=== PATIENT | female | born 1940 | race Caucasian/White ===

== ENCOUNTER 2018-02-22 09:28 | Inpatient (IN) | payer MEDICARE, BC ==
[2018-02-22] MEDS ORDERED: SODIUM CHLORIDE 0.9% 1,000 ML IV STA (09:31)
--- NOTE | 2018-02-22 09:44 | ED ---
GI Bleed HPI - General Chief complaint: GI Bleed Stated complaint: Diff Breathing Time Seen by Provider: 02/22/18 09:28 Source: patient, EMS, RN notes reviewed, old records reviewed Mode of arrival: EMS Limitations: no limitations - History of Present Illness Initial comments: This is a 77-year-old female who presents by EMS from her doctor's office with 2 complaints this morning. Versus shortness of breath or past several days with a wet minimally productive cough no reports of fevers chills or sweats additionally the patient also has some blood per rectum or past several days with something protruding from her rectum. No reports lightheadedness dizziness blurry vision nausea vomiting. Patient does have chronic atrial fibrillation. No other modifying factors at this time - Related Data Home Medications Medication Instructions Recorded Confirmed Digoxin [Digitek] 125 mcg PO DAILY 12/07/16 02/22/18 Ergocalciferol [Vitamin D2 50,000 unit PO Q30D 12/07/16 02/22/18 (DRISDOL)] Potassium Chloride ER [K-Dur 20] 20 meq PO DAILY 12/07/16 02/22/18 Vit C/E/Zn/Coppr/Lutein/Zeaxan 1 cap PO DAILY 12/07/16 02/22/18 [Preservision Areds 2 Softgel] Ascorbic Acid [Vitamin C] 500 mg PO DAILY 02/22/18 02/22/18 Calcium Carbonate [Calcium] 600 mg PO BID 02/22/18 02/22/18 Fluticasone/Salmeterol [Advair 1 puff INHALATION RT-BID 02/22/18 02/22/18 250-50 Diskus] Metoprolol Tartrate [Lopressor] 25 mg PO Q12H 02/22/18 02/22/18 Warfarin Sodium [Coumadin] 4 mg PO SUMOTUWETH@1800 02/22/18 02/22/18 Warfarin [Coumadin] 5 mg PO FRSA 02/22/18 02/22/18 Previous Rx's Medication Instructions Recorded Atorvastatin [Lipitor] 20 mg PO DAILY tab 12/15/16 Furosemide [Lasix] 20 mg PO DAILY tab 12/15/16 Pantoprazole [Protonix] 40 mg PO AC-BID tablet.dr 12/15/16 Verapamil Sr [Isoptin Sr] 120 mg PO DAILY tablet.er 12/15/16 Allergies Allergy/AdvReac Type Severity Reaction Status Date / Time Sulfa (Sulfonamide Allergy Rash/Hives Verified 02/22/18 10:21 Antibiotics) Review of Systems ROS Statement: Those systems with pertinent positive or pertinent negative responses have been documented in the HPI. ROS Other: All systems not noted in ROS Statement are negative. Past Medical History Past Medical History: Atrial Fibrillation, Heart Failure, Osteoarthritis (OA) Additional Past Medical History / Comment(s): chronic back pain, emphysema History of Any Multi-Drug Resistant Organisms: None Reported Past Surgical History: Back Surgery Additional Past Surgical History / Comment(s): hysterectomy Past Anesthesia/Blood Transfusion Reactions: No Reported Reaction Past Psychological History: No Psychological Hx Reported Smoking Status: Former smoker Past Alcohol Use History: None Reported Past Drug Use History: None Reported - Past Family History Mother Family Medical History: Cancer Additional Family Medical History / Comment(s): esophageal CA Father Family Medical History: Myocardial Infarction ([place]) General Exam - General Exam Comments Initial Comments: This is a well-developed well-nourished awake alert oriented 3 female she is demonstrating a wet cough Limitations: no limitations General appearance: alert, anxious Head exam: Present: atraumatic, normocephalic, normal inspection Eye exam: Present: normal appearance, PERRL, EOMI. Absent: scleral icterus, conjunctival injection, periorbital swelling ENT exam: Present: normal exam, mucous membranes moist Neck exam: Present: normal inspection. Absent: tenderness, meningismus, lymphadenopathy Respiratory exam: Present: rhonchi, decreased breath sounds. Absent: respiratory distress, wheezes, rales, stridor Cardiovascular Exam: Present: tachycardia, irregular rhythm. Absent: systolic murmur, diastolic murmur, rubs, gallop, clicks GI/Abdominal exam: Present: soft, normal bowel sounds. Absent: distended, tenderness, guarding, rebound, rigid Rectal exam: Present: other (Rectal exam revealed no masses or hemorrhoids noted that are not inflamed at this time. There was evidence of pink blood on residual toilet paper and on underwear. No martinez blood on my exam. Hemoccult test is pending) Extremities exam: Present: normal inspection, full ROM, normal capillary refill. Absent: tenderness, pedal edema, joint swelling, calf tenderness Back exam: Present: normal inspection Neurological exam: Present: alert, oriented X3, CN II-XII intact Psychiatric exam: Present: normal affect, normal mood Skin exam: Present: warm, dry, intact, normal color. Absent: rash Course Vital Signs 02/22/18 02/22/18 09:30 12:01 Temperature 98.3 F 98.2 F Pulse Rate 119 H 118 H Respiratory 20 22 Rate Blood Pressure 110/68 114/73 O2 Sat by Pulse 88 L 95 Oximetry - Reevaluation(s) Reevaluation #1: 02/22/18 09:46 EKG shows rapid atrial fibrillation rate 119 QRS QRS 84 QT since QTC 266/374, right axis deviation, nonspecific ST-T wave configuration artifact is present. Reevaluation #2: 02/22/18 14:03 Evaluation patient reveals minimal improvement thus far to her breathing her heart rate maintains an elevated rate Cardizem is initiated. Medical Decision Making - Medical Decision Making I did discuss the findings with the patient family members as well as with Dr. Chavez who did come to see the patient. Patient will be admitted for inpatient treatment of rapid atrial fibrillation and congestive heart failure. There is likely component of COPD also. Additionally the rectal exam was negative for masses or bleeding. UA is pending at this time - Lab Data Result diagrams: 02/22/18 09:44 02/22/18 09:44 Lab Results 02/22/18 02/22/18 02/22/18 Range/Units 09:44 09:44 09:44 WBC 10.0 (3.8-10.6) k/uL RBC 4.60 (3.80-5.40) m/uL Hgb 15.0 (11.4-16.0) gm/dL Hct 48.6 H (34.0-46.0) % MCV 105.6 H (80.0-100.0) fL MCH 32.6 (25.0-35.0) pg MCHC 30.9 L (31.0-37.0) g/dL RDW 13.8 (11.5-15.5) % Plt Count 245 (150-450) k/uL Neutrophils % 86 % Lymphocytes % 8 % Monocytes % 5 % Eosinophils % 0 % Basophils % 0 % Neutrophils # 8.6 H (1.3-7.7) k/uL Lymphocytes # 0.8 L (1.0-4.8) k/uL Monocytes # 0.5 (0-1.0) k/uL Eosinophils # 0.0 (0-0.7) k/uL Basophils # 0.0 (0-0.2) k/uL Macrocytosis Moderate PT (9.0-12.0) sec INR (<1.2) APTT (22.0-30.0) sec Sodium 135 L (137-145) mmol/L Potassium 4.6 (3.5-5.1) mmol/L Chloride 97 L (98-107) mmol/L Carbon Dioxide 32 H (22-30) mmol/L Anion Gap 6 mmol/L BUN 16 (7-17) mg/dL Creatinine 0.52 (0.52-1.04) mg/dL Est GFR (CKD-EPI)AfAm >90 (>60 ml/min/1.73 sqM) Est GFR (CKD-EPI)NonAf >90 (>60 ml/min/1.73 sqM) Glucose 98 (74-99) mg/dL Calcium 7.9 L (8.4-10.2) mg/dL Magnesium 1.0 L (1.6-2.3) mg/dL Total Bilirubin 1.2 (0.2-1.3) mg/dL AST 38 H (14-36) U/L ALT 29 (9-52) U/L Alkaline Phosphatase 50 (38-126) U/L Total Creatine Kinase 69 (30-135) U/L CK-MB (CK-2) 2.4 (0.0-2.4) ng/mL CK-MB (CK-2) Rel Index 3.5 Troponin I 0.033 (0.000-0.034) ng/mL NT-Pro-B Natriuret Pep pg/mL Total Protein 5.5 L (6.3-8.2) g/dL Albumin 2.9 L (3.5-5.0) g/dL Amylase 36 (30-110) U/L Lipase 48 (23-300) U/L Stool Occult Blood (Negative) 02/22/18 02/22/18 02/22/18 Range/Units 09:44 09:44 10:05 WBC (3.8-10.6) k/uL RBC (3.80-5.40) m/uL Hgb (11.4-16.0) gm/dL Hct (34.0-46.0) % MCV (80.0-100.0) fL MCH (25.0-35.0) pg MCHC (31.0-37.0) g/dL RDW (11.5-15.5) % Plt Count (150-450) k/uL Neutrophils % % Lymphocytes % % Monocytes % % Eosinophils % % Basophils % % Neutrophils # (1.3-7.7) k/uL Lymphocytes # (1.0-4.8) k/uL Monocytes # (0-1.0) k/uL Eosinophils # (0-0.7) k/uL Basophils # (0-0.2) k/uL Macrocytosis PT 84.7 H (9.0-12.0) sec INR 8.6 H* (<1.2) APTT 38.8 H (22.0-30.0) sec Sodium (137-145) mmol/L Potassium (3.5-5.1) mmol/L Chloride (98-107) mmol/L Carbon Dioxide (22-30) mmol/L Anion Gap mmol/L BUN (7-17) mg/dL Creatinine (0.52-1.04) mg/dL Est GFR (CKD-EPI)AfAm (>60 ml/min/1.73 sqM) Est GFR (CKD-EPI)NonAf (>60 ml/min/1.73 sqM) Glucose (74-99) mg/dL Calcium (8.4-10.2) mg/dL Magnesium (1.6-2.3) mg/dL Total Bilirubin (0.2-1.3) mg/dL AST (14-36) U/L ALT (9-52) U/L Alkaline Phosphatase (38-126) U/L Total Creatine Kinase (30-135) U/L CK-MB (CK-2) (0.0-2.4) ng/mL CK-MB (CK-2) Rel Index Troponin I (0.000-0.034) ng/mL NT-Pro-B Natriuret Pep 8290 pg/mL Total Protein (6.3-8.2) g/dL Albumin (3.5-5.0) g/dL Amylase (30-110) U/L Lipase (23-300) U/L Stool Occult Blood Negative (Negative) - EKG Data -: EKG Interpreted by Me (Atrial fibrillation with rapid response rate 119 QRS 84 QT since QTC 266/37) - Radiology Data Radiology results: report reviewed (I did review the imaging and reports are is evidence of his congestive heart failure. Please see the complete report), image reviewed Critical Care Time Critical Care Time: Yes Critical Care Time: 39 minutes of critical care time this includes initial presentation with history physical labs x-rays multiple reevaluation patient responsive therapy discussion with the beta physician discussion with multiple family members review of old charting was available admission orders and documentation of the above. Disposition Clinical Impression: Congestive heart failure (CHF), Rapid atrial fibrillation Disposition: ADMITTED IP TO THIS [facility] Condition: Serious Referrals: Janel Marie MD [Primary Care Provider] - 1-2 days
--- NOTE | 2018-02-22 10:05 | XR ---
EXAMINATION TYPE: XR chest 2V DATE OF EXAM: 02/22/2018 COMPARISON: Chest x-ray December 13, 2016 HISTORY: Shortness of breath TECHNIQUE: Frontal and lateral views of the chest are obtained. FINDINGS: There is chronic parenchymal change with persistent small left pleural effusion and associ ated left basilar atelectasis and/or infiltrate. There is new mild/moderate central vascular congesti on and mild interstitial edema with Adore B lines in the periphery. The cardiac silhouette size is u pper limits of normal. The osseous structures are demineralized.. Underlying scoliosis is present. There may be underlying bilateral lung nodularity. IMPRESSION: Chronic parenchymal changes with small left pleural effusion and associated left basilar atelectasis and/or infiltrate. In addition there is mild to moderate central vascular congestion and mild interstitial edema. Correlate for fluid overload state or CHF exacerbation. Cannot exclude demetra ateral lung nodules, consider CT follow-up.
--- NOTE | 2018-02-22 10:07 | XR ---
EXAMINATION TYPE: XR abdomen 1V DATE OF EXAM: 02/22/2018 9:59 AM CLINICAL HISTORY: Rectal bleeding. TECHNIQUE: Single supine KUB image of the abdomen is obtained. COMPARISON: None. FINDINGS: Scattered gas is seen in non-distended stomach and small bowel loops. Gas and fecal materia l is seen in non-distended colon. Vascular calcification central lower abdomen and bilateral groin re gion is seen. Underlying scoliosis is present. There is advanced disc space narrowing with endplate s clerosis upper to mid lumbar levels. Punctate densities over pelvis favor phleboliths. IMPRESSION: Overall nonobstructive bowel gas pattern.
[2018-02-22 10:11] LABS: Basophils % (A) 0 %; Eosinophils % (A) 0 %; HCT 48.6 % (34.0-46.0); Lymphocytes # (A) 0.8 k/uL (1.0-4.8); Lymphocytes % (A) 8 %; MCH 32.6 pg (25.0-35.0); MCHC 30.9 g/dL (31.0-37.0); MCV 105.6 fL (80.0-100.0); Macrocytosis Moderate; Mean Platelet Volume 6.9; Monocytes # (A) 0.5 k/uL (0-1.0); Monocytes % (A) 5 %; Neutrophils # (A) 8.6 k/uL (1.3-7.7); Neutrophils % (A) 86 %; Platelet Count 245 k/uL (150-450); RDW 13.8 % (11.5-15.5)
[2018-02-22 10:24] LABS: ALT 29 U/L (9-52); AST 38 U/L (14-36); Albumin 2.9 g/dL (3.5-5.0); Alkaline Phosphatase 50 U/L (38-126); Amylase 36 U/L (30-110); Anion Gap 6 mmol/L; Blood Urea Nitrogen 16 mg/dL (7-17); Calcium 7.9 mg/dL (8.4-10.2); Carbon Dioxide 32 mmol/L (22-30); Chloride 97 mmol/L (98-107); Glucose 98 mg/dL (74-99); Lipase 48 U/L (23-300); Sodium 135 mmol/L (137-145); Total Bilirubin 1.2 mg/dL (0.2-1.3); Total Protein 5.5 g/dL (6.3-8.2)
[2018-02-22 10:43] LABS: Potassium 4.6 mmol/L (3.5-5.1)
[2018-02-22 10:51] LABS: Creatine Kinase MB 2.4 ng/mL (0.0-2.4); Troponin I 0.033 ng/mL (0.000-0.034)
[2018-02-22 11:01] LABS: Partial Thromboplastin Time 38.8 sec (22.0-30.0); Prothrombin Time 84.7 sec (9.0-12.0)
[2018-02-22 11:03] LABS: INR 8.6 (<1.2)
[2018-02-22] MEDS ORDERED: DILTIAZEM DRIP BOLUS FROM BAG 1 MG SOLN IV ONE (13:00)
[2018-02-22] MEDS ORDERED: METOPROLOL TARTRATE 25 MG TAB PO STA (13:05)
[2018-02-22] MEDS ORDERED: DILTIAZEM 50 MG in SODIUM CHLORIDE 0.9% 40 ML IV SCH (13:30)
[2018-02-22] MEDS: DIGOXIN 125 MCG TAB PO SCH (14:06)
--- NOTE | 2018-02-22 14:11 | ED ---
Medical Decision Making - Lab Data Result diagrams: 02/22/18 09:44 02/22/18 09:44 Lab Results 02/22/18 02/22/18 02/22/18 Range/Units 09:44 09:44 09:44 WBC 10.0 (3.8-10.6) k/uL RBC 4.60 (3.80-5.40) m/uL Hgb 15.0 (11.4-16.0) gm/dL Hct 48.6 H (34.0-46.0) % MCV 105.6 H (80.0-100.0) fL MCH 32.6 (25.0-35.0) pg MCHC 30.9 L (31.0-37.0) g/dL RDW 13.8 (11.5-15.5) % Plt Count 245 (150-450) k/uL Neutrophils % 86 % Lymphocytes % 8 % Monocytes % 5 % Eosinophils % 0 % Basophils % 0 % Neutrophils # 8.6 H (1.3-7.7) k/uL Lymphocytes # 0.8 L (1.0-4.8) k/uL Monocytes # 0.5 (0-1.0) k/uL Eosinophils # 0.0 (0-0.7) k/uL Basophils # 0.0 (0-0.2) k/uL Macrocytosis Moderate PT (9.0-12.0) sec INR (<1.2) APTT (22.0-30.0) sec Sodium 135 L (137-145) mmol/L Potassium 4.6 (3.5-5.1) mmol/L Chloride 97 L (98-107) mmol/L Carbon Dioxide 32 H (22-30) mmol/L Anion Gap 6 mmol/L BUN 16 (7-17) mg/dL Creatinine 0.52 (0.52-1.04) mg/dL Est GFR (CKD-EPI)AfAm >90 (>60 ml/min/1.73 sqM) Est GFR (CKD-EPI)NonAf >90 (>60 ml/min/1.73 sqM) Glucose 98 (74-99) mg/dL Calcium 7.9 L (8.4-10.2) mg/dL Magnesium 1.0 L (1.6-2.3) mg/dL Total Bilirubin 1.2 (0.2-1.3) mg/dL AST 38 H (14-36) U/L ALT 29 (9-52) U/L Alkaline Phosphatase 50 (38-126) U/L Total Creatine Kinase 69 (30-135) U/L CK-MB (CK-2) 2.4 (0.0-2.4) ng/mL CK-MB (CK-2) Rel Index 3.5 Troponin I 0.033 (0.000-0.034) ng/mL NT-Pro-B Natriuret Pep pg/mL Total Protein 5.5 L (6.3-8.2) g/dL Albumin 2.9 L (3.5-5.0) g/dL Amylase 36 (30-110) U/L Lipase 48 (23-300) U/L Stool Occult Blood (Negative) Digoxin ng/mL 02/22/18 02/22/18 02/22/18 Range/Units 09:44 09:44 09:44 WBC (3.8-10.6) k/uL RBC (3.80-5.40) m/uL Hgb (11.4-16.0) gm/dL Hct (34.0-46.0) % MCV (80.0-100.0) fL MCH (25.0-35.0) pg MCHC (31.0-37.0) g/dL RDW (11.5-15.5) % Plt Count (150-450) k/uL Neutrophils % % Lymphocytes % % Monocytes % % Eosinophils % % Basophils % % Neutrophils # (1.3-7.7) k/uL Lymphocytes # (1.0-4.8) k/uL Monocytes # (0-1.0) k/uL Eosinophils # (0-0.7) k/uL Basophils # (0-0.2) k/uL Macrocytosis PT 84.7 H (9.0-12.0) sec INR 8.6 H* (<1.2) APTT 38.8 H (22.0-30.0) sec Sodium (137-145) mmol/L Potassium (3.5-5.1) mmol/L Chloride (98-107) mmol/L Carbon Dioxide (22-30) mmol/L Anion Gap mmol/L BUN (7-17) mg/dL Creatinine (0.52-1.04) mg/dL Est GFR (CKD-EPI)AfAm (>60 ml/min/1.73 sqM) Est GFR (CKD-EPI)NonAf (>60 ml/min/1.73 sqM) Glucose (74-99) mg/dL Calcium (8.4-10.2) mg/dL Magnesium (1.6-2.3) mg/dL Total Bilirubin (0.2-1.3) mg/dL AST (14-36) U/L ALT (9-52) U/L Alkaline Phosphatase (38-126) U/L Total Creatine Kinase (30-135) U/L CK-MB (CK-2) (0.0-2.4) ng/mL CK-MB (CK-2) Rel Index Troponin I (0.000-0.034) ng/mL NT-Pro-B Natriuret Pep 8290 pg/mL Total Protein (6.3-8.2) g/dL Albumin (3.5-5.0) g/dL Amylase (30-110) U/L Lipase (23-300) U/L Stool Occult Blood (Negative) Digoxin 0.4 ng/mL 02/22/18 Range/Units 10:05 WBC (3.8-10.6) k/uL RBC (3.80-5.40) m/uL Hgb (11.4-16.0) gm/dL Hct (34.0-46.0) % MCV (80.0-100.0) fL MCH (25.0-35.0) pg MCHC (31.0-37.0) g/dL RDW (11.5-15.5) % Plt Count (150-450) k/uL Neutrophils % % Lymphocytes % % Monocytes % % Eosinophils % % Basophils % % Neutrophils # (1.3-7.7) k/uL Lymphocytes # (1.0-4.8) k/uL Monocytes # (0-1.0) k/uL Eosinophils # (0-0.7) k/uL Basophils # (0-0.2) k/uL Macrocytosis PT (9.0-12.0) sec INR (<1.2) APTT (22.0-30.0) sec Sodium (137-145) mmol/L Potassium (3.5-5.1) mmol/L Chloride (98-107) mmol/L Carbon Dioxide (22-30) mmol/L Anion Gap mmol/L BUN (7-17) mg/dL Creatinine (0.52-1.04) mg/dL Est GFR (CKD-EPI)AfAm (>60 ml/min/1.73 sqM) Est GFR (CKD-EPI)NonAf (>60 ml/min/1.73 sqM) Glucose (74-99) mg/dL Calcium (8.4-10.2) mg/dL Magnesium (1.6-2.3) mg/dL Total Bilirubin (0.2-1.3) mg/dL AST (14-36) U/L ALT (9-52) U/L Alkaline Phosphatase (38-126) U/L Total Creatine Kinase (30-135) U/L CK-MB (CK-2) (0.0-2.4) ng/mL CK-MB (CK-2) Rel Index Troponin I (0.000-0.034) ng/mL NT-Pro-B Natriuret Pep pg/mL Total Protein (6.3-8.2) g/dL Albumin (3.5-5.0) g/dL Amylase (30-110) U/L Lipase (23-300) U/L Stool Occult Blood Negative (Negative) Digoxin ng/mL Disposition Clinical Impression: Congestive heart failure (CHF), Rapid atrial fibrillation, Coumadin toxicity Disposition: ADMITTED IP TO THIS [facility]OS[facility] Condition: Serious Referrals: Janel Marie MD [Primary Care Provider] - 1-2 days
[2018-02-22] MEDS: FUROSEMIDE 10 MG/ML 4 ML VIAL IV SCH ×2 (16:56→20:28)
[2018-02-22] MEDS: PANTOPRAZOLE 40 MG TABLET PO SCH (17:04)
--- NOTE | 2018-02-22 17:04 | P.HPIM ---
History of Present Illness 68-year-old female came in with complaints of 1 episode of lower GI bleed was seen in the PCPs office was sent in here. Patient doesn't have any GI bleed after that. Patient is found to have highly elevated INR of 8.6 which is contributing to GI bleed and Coumadin is being held. Patient has history of atrial fibrillation because of which patient is on Coumadin patient is still in A. fib with increased heart rate patient blood pressures are borderline because of which I'm unable to use any Cardizem patient is on verapamil at home along with the metoprolol and digoxin. I gave her a dose of digoxin today have been there was 0.4 give her additional dose of metoprolol. Increasing the dose of metoprolol to 50 twice a day and continuing digoxin. Patient had normal ejection fraction the past can start her on IV Cardizem if needed. Folding of anti-coagulation because of super that he cannot of 8.6. Patient also has some pulmonary edema on the chest x-ray probably secondary to A. fib patient had normal ejection fraction the past with chronic diastolic dysfunction. Patient was started on IV Lasix which probably need to be held as well for blood pressure continues to be low. Patient denied any significantly increased shortness of breath orthopnea does have bilateral pedal edema pitting Review of Systems REVIEW OF SYSTEMS: CONSTITUTIONAL: No fever, no malaise, no fatigue. HEENT: No recent visual problems or hearing problems. Denied any sore throat. CARDIOVASCULAR: No chest pain, orthopnea, PND, no palpitations, no syncope. PULMONARY: No shortness of breath, no cough, no hemoptysis. GASTROINTESTINAL: No diarrhea, no nausea, no vomiting, no abdominal pain. NEUROLOGICAL: No headaches, no weakness, no numbness. HEMATOLOGICAL: Denies any bleeding or petechiae. GENITOURINARY: Denies any burning micturition, frequency, or urgency. MUSCULOSKELETAL/RHEUMATOLOGICAL: Denies any joint pain, swelling, or any muscle pain. ENDOCRINE: Denies any polyuria or polydipsia. The rest of the 14-point review of systems is negative. Past Medical History Past Medical History: Atrial Fibrillation, Heart Failure, Osteoarthritis (OA) Additional Past Medical History / Comment(s): chronic back pain, emphysema History of Any Multi-Drug Resistant Organisms: None Reported Past Surgical History: Back Surgery Additional Past Surgical History / Comment(s): hysterectomy Past Anesthesia/Blood Transfusion Reactions: No Reported Reaction Past Psychological History: No Psychological Hx Reported Smoking Status: Former smoker Past Alcohol Use History: None Reported Past Drug Use History: None Reported - Past Family History Mother Family Medical History: Cancer Additional Family Medical History / Comment(s): esophageal CA Father Family Medical History: Myocardial Infarction ([place]) Medications and Allergies Home Medications Medication Instructions Recorded Confirmed Type Digoxin [Digitek] 125 mcg PO DAILY 12/07/16 02/22/18 History Ergocalciferol [Vitamin D2 50,000 unit PO Q30D 12/07/16 02/22/18 History (DRISDOL)] Potassium Chloride ER [K-Dur 20] 20 meq PO DAILY 12/07/16 02/22/18 History Vit C/E/Zn/Coppr/Lutein/Zeaxan 1 cap PO DAILY 12/07/16 02/22/18 History [Preservision Areds 2 Softgel] Atorvastatin [Lipitor] 20 mg PO DAILY tab 12/15/16 02/22/18 Rx Furosemide [Lasix] 20 mg PO DAILY tab 12/15/16 02/22/18 Rx Pantoprazole [Protonix] 40 mg PO AC-BID tablet.dr 12/15/16 02/22/18 Rx Verapamil Sr [Isoptin Sr] 120 mg PO DAILY tablet.er 12/15/16 02/22/18 Rx Ascorbic Acid [Vitamin C] 500 mg PO DAILY 02/22/18 02/22/18 History Calcium Carbonate [Calcium] 600 mg PO BID 02/22/18 02/22/18 History Fluticasone/Salmeterol [Advair 1 puff INHALATION RT-BID 02/22/18 02/22/18 History 250-50 Diskus] Metoprolol Tartrate [Lopressor] 25 mg PO Q12H 02/22/18 02/22/18 History Warfarin Sodium [Coumadin] 4 mg PO SUMOTUWETH@1800 02/22/18 02/22/18 History Warfarin [Coumadin] 5 mg PO FRSA 02/22/18 02/22/18 History Allergies Allergy/AdvReac Type Severity Reaction Status Date / Time Sulfa (Sulfonamide Allergy Rash/Hives Verified 02/22/18 10:21 Antibiotics) Physical Exam Vitals: Vital Signs Temp Pulse Resp BP Pulse Ox 02/22/18 16:10 129 H 20 98/75 96 02/22/18 15:15 120 H 87/70 95 02/22/18 14:42 114 H 18 95/53 95 02/22/18 14:03 147 H 26 H 123/79 96 02/22/18 12:01 98.2 F 118 H 22 114/73 95 02/22/18 09:30 98.3 F 119 H 20 110/68 88 L Intake and Output 02/22/18 02/22/18 02/22/18 06:59 14:59 22:59 Other: Weight 53.524 kg PHYSICAL EXAMINATION: GENERAL: The patient is alert and oriented x3, not in any acute distress. Well developed, well nourished. HEENT: Pupils are round and equally reacting to light. EOMI. No scleral icterus. No conjunctival pallor. Normocephalic, atraumatic. No pharyngeal erythema. No thyromegaly. CARDIOVASCULAR: S1 and S2 present. No murmurs, rubs, or gallops. Patient has irregularly irregular rhythm unable to clearly appreciate JVD because of atrial fibrillation PULMONARY: Chest is clear to auscultation, no wheezing or crackles. ABDOMEN: Soft, nontender, nondistended, normoactive bowel sounds. No palpable organomegaly. MUSCULOSKELETAL: No joint swelling or deformity. EXTREMITIES: No cyanosis, clubbing, does have 1+ bilateral pitting pedal edema NEUROLOGICAL: Gross neurological examination did not reveal any focal deficits. SKIN: No rashes. Results CBC & Chem 7: 02/22/18 09:44 02/22/18 09:44 Labs: Abnormal Lab Results - Last 24 Hours (Table) 02/22/18 02/22/18 02/22/18 Range/Units 09:44 09:44 09:44 Hct 48.6 H (34.0-46.0) % MCV 105.6 H (80.0-100.0) fL MCHC 30.9 L (31.0-37.0) g/dL Neutrophils # 8.6 H (1.3-7.7) k/uL Lymphocytes # 0.8 L (1.0-4.8) k/uL PT 84.7 H (9.0-12.0) sec INR 8.6 H* (<1.2) APTT 38.8 H (22.0-30.0) sec Sodium 135 L (137-145) mmol/L Chloride 97 L (98-107) mmol/L Carbon Dioxide 32 H (22-30) mmol/L Calcium 7.9 L (8.4-10.2) mg/dL Magnesium 1.0 L (1.6-2.3) mg/dL AST 38 H (14-36) U/L Total Protein 5.5 L (6.3-8.2) g/dL Albumin 2.9 L (3.5-5.0) g/dL Assessment and Plan Plan: -Acute lower GI bleed probably hemorrhoidal or diverticular: Secondary to subtherapeutic INR, Coumadin is being held at this time. -Atrial fibrillation with rapid ventricular rate: Increasing the dose of metoprolol digoxin is being continued and patient heart rate, doesn't come down with these measures patient was started on Cardizem if her blood pressure can tolerate as of now her blood pressure is low. Verapamil doesn't tract with the digoxin. -Congestive heart failure chronic diastolic dysfunction with mild acute exacerbation secondary to uncontrolled heart rate and atrial fibrillation: Continue with low-dose of Lasix -Hypomagnesemia that will be corrected we'll give HER-2 grams of magnesium IV
[2018-02-22] MEDS: MAGNESIUM SULFATE-D5W PMX 1 GM in DEXTROSE/WATER 1 100ML.BAG IVPB SCH ×2 (17:32→20:28)
[2018-02-22] MEDS ORDERED: NON-FORMULARY DRUG (Warfarin Sodium [Coumadin] 4 MG) PO SCH (18:00)
[2018-02-22] MEDS: SYMBICORT 80-4.5 MCG INHALER INHALATION SCH (20:12)
[2018-02-22] MEDS: NICOTINE 14MG/24HR PATCH TRANSDERM SCH (20:29)
[2018-02-22] MEDS: CALCIUM CARBONATE 500 MG CHEWABLE PO SCH (20:29)
[2018-02-22] MEDS: METOPROLOL TARTRATE 50 MG TAB PO SCH (20:29)
[2018-02-22] MEDS ORDERED: METOPROLOL TARTRATE 25 MG TAB PO SCH (21:00)
[2018-02-22 22:05] LABS: Appearance,Urine Cloudy (Clear); Bacteria,Urine Rare /hpf; Bilirubin,Urine Negative (Negative); Blood,Urine Negative (Negative); Color,Urine Yellow; Glucose,Urine (UA) Negative (Negative); Granular Casts,Urine 1 /lpf (0); Hyaline Casts,Urine 24 /lpf (0-2); Ketones,Urine Negative (Negative); Leukocyte Esterase,Urine Negative (Negative); Mucus,Urine Rare /hpf; Nitrite,Urine Negative (Negative); Protein,Urine 1+ (Negative); RBC,Urine 1 /hpf (0-5); Specific Gravity,Urine 1.011 (1.001-1.035); WBC,Urine 2 /hpf (0-5)
[2018-02-23 03:38] LABS: Prothrombin Time 71.7 sec (9.0-12.0)
[2018-02-23 03:41] LABS: Anion Gap 6 mmol/L; Blood Urea Nitrogen 19 mg/dL (7-17); Calcium 7.3 mg/dL (8.4-10.2); Carbon Dioxide 34 mmol/L (22-30); Chloride 93 mmol/L (98-107); Glucose 118 mg/dL (74-99); Sodium 133 mmol/L (137-145)
[2018-02-23 03:50] LABS: INR 7.4 (<1.2)
[2018-02-23] MEDS: PANTOPRAZOLE 40 MG TABLET PO SCH ×2 (06:20→18:22)
[2018-02-23] MEDS: SYMBICORT 80-4.5 MCG INHALER INHALATION SCH ×2 (08:23→20:28)
[2018-02-23] MEDS: NICOTINE 14MG/24HR PATCH TRANSDERM SCH (08:29)
[2018-02-23] MEDS: CALCIUM CARBONATE 500 MG CHEWABLE PO SCH ×2 (08:29→20:29)
[2018-02-23] MEDS: METOPROLOL TARTRATE 50 MG TAB PO SCH ×2 (08:30→20:29)
[2018-02-23] MEDS: ATORVASTATIN 20 MG TAB PO SCH (08:30)
[2018-02-23] MEDS: POTASSIUM CHLORIDE ER 20 MEQ TAB.ER PO SCH (08:30)
[2018-02-23] MEDS: ASCORBIC ACID 500 MG TAB PO SCH (08:30)
[2018-02-23] MEDS: FUROSEMIDE 10 MG/ML 4 ML VIAL IV SCH (08:30)
[2018-02-23] MEDS: VERAPAMIL SR 120 MG TABLET.ER PO SCH (08:30)
[2018-02-23] MEDS: DIGOXIN 125 MCG TAB PO SCH (08:35)
[2018-02-23] MEDS ORDERED: DIGOXIN 125 MCG TAB PO SCH (09:00)
[2018-02-23] MEDS ORDERED: FUROSEMIDE 20 MG TAB PO SCH (09:00)
--- NOTE | 2018-02-23 10:40 | XR ---
EXAMINATION TYPE: XR chest 1V DATE OF EXAM: 02/23/2018 COMPARISON: Prior chest 02/22/2017 and chest x-ray 11/25/2011 HISTORY: Congestive heart failure TECHNIQUE: Single frontal view of the chest is obtained. FINDINGS: Pulmonary artery is prominent, heart is enlarged. Aorta is dense. Patient is rotated. Inte rstitium is increased. Some improvement in aeration suspected. No pneumothorax. Blunting of the left costophrenic angle may relate to small pleural effusion. No evident effusion. Nodular density right l gladys base is again noted. IMPRESSION: Suspect some improvement in aeration. Correlate for possible pulmonary artery hypertensi on. Indeterminate lung nodule stable compared to previous exam 11/25/2011.
--- NOTE | 2018-02-23 10:45 | P.PN ---
Subjective 77-year-old female admitted secondary to lower GI bleed from suprapubic INR INR has come down to 7.1 today. Patient remains in A. fib heart rate is in 90s and 100s no more GI bleed patient is complaining of shortness of breath patient is hyponatremic because of which I'm discontinued and IV Lasix will repeat the chest x-ray make sure her pulmonary edema is better I believe her shortness of breath is secondary to be A. fib and the cardiology will evaluate the patient probably can increase the beta jaleel. Echocardiac exam is pending. Constitutional: Denied any fatigue denied any fever. Cardio vascular: As mentioned in the interval history Gastrointestinal denied any nausea vomiting Pulmonary: Refer to interval history Neurologic denied any new focal deficits All inpatient medications were reviewed and appropriate changes in these medications as dictated in the interval history and assessment and plan. Objective - Vital Signs Vital signs: Vital Signs Temp 98.2 F 02/23/18 00:00 Pulse 87 02/23/18 04:00 Resp 20 02/23/18 04:00 BP 107/64 02/23/18 04:00 Pulse Ox 98 02/23/18 04:00 Intake & Output 02/22/18 02/23/18 02/23/18 18:59 06:59 18:59 Output Total 1850 Balance -1850 Weight 53.524 kg 61 kg Output: Urine 1850 Other: Voiding Method Indwelling Catheter - Exam PHYSICAL EXAMINATION: GENERAL: The patient is alert and oriented x3, not in any acute distress. Well developed, well nourished. HEENT: Pupils are round and equally reacting to light. EOMI. No scleral icterus. No conjunctival pallor. Normocephalic, atraumatic. No pharyngeal erythema. No thyromegaly. CARDIOVASCULAR: S1 and S2 present. No murmurs, rubs, or gallops. Patient has irregularly irregular rhythm unable to clearly appreciate JVD because of atrial fibrillation PULMONARY: Chest is clear to auscultation, no wheezing or crackles. ABDOMEN: Soft, nontender, nondistended, normoactive bowel sounds. No palpable organomegaly. MUSCULOSKELETAL: No joint swelling or deformity. EXTREMITIES: No cyanosis, clubbing, does have 1+ bilateral pitting pedal edema NEUROLOGICAL: Gross neurological examination did not reveal any focal deficits. SKIN: No rashes. - Labs CBC & Chem 7: 02/22/18 09:44 02/23/18 02:39 Labs: Abnormal Lab Results - Last 24 Hours (Table) 02/22/18 02/22/18 02/22/18 Range/Units 09:44 09:44 21:30 PT 84.7 H (9.0-12.0) sec INR 8.6 H* (<1.2) APTT 38.8 H (22.0-30.0) sec Sodium 135 L (137-145) mmol/L Chloride 97 L (98-107) mmol/L Carbon Dioxide 32 H (22-30) mmol/L BUN (7-17) mg/dL Creatinine (0.52-1.04) mg/dL Glucose (74-99) mg/dL Calcium 7.9 L (8.4-10.2) mg/dL Magnesium 1.0 L (1.6-2.3) mg/dL AST 38 H (14-36) U/L Total Protein 5.5 L (6.3-8.2) g/dL Albumin 2.9 L (3.5-5.0) g/dL Urine Appearance Cloudy H (Clear) Urine Protein 1+ H (Negative) Urine Bacteria Rare H (None) /hpf Hyaline Casts 24 H (0-2) /lpf Urine Mucus Rare H (None) /hpf 02/23/18 02/23/18 Range/Units 02:39 02:39 PT 71.7 H (9.0-12.0) sec INR 7.4 H* (<1.2) APTT (22.0-30.0) sec Sodium 133 L (137-145) mmol/L Chloride 93 L (98-107) mmol/L Carbon Dioxide 34 H (22-30) mmol/L BUN 19 H (7-17) mg/dL Creatinine 0.48 L (0.52-1.04) mg/dL Glucose 118 H (74-99) mg/dL Calcium 7.3 L (8.4-10.2) mg/dL Magnesium (1.6-2.3) mg/dL AST (14-36) U/L Total Protein (6.3-8.2) g/dL Albumin (3.5-5.0) g/dL Urine Appearance (Clear) Urine Protein (Negative) Urine Bacteria (None) /hpf Hyaline Casts (0-2) /lpf Urine Mucus (None) /hpf Assessment and Plan Plan: -Acute lower GI bleed probably hemorrhoidal or diverticular: Secondary to subtherapeutic INR, Coumadin is being held at this time. -Atrial fibrillation with rapid ventricular rate: Increasing the dose of metoprolol digoxin is being continued and patient heart rate, verapamil will be continued further management as per cardiology -Congestive heart failure chronic diastolic dysfunction with mild acute exacerbation secondary to uncontrolled heart rate and atrial fibrillation: Patient is presently hypovolemic and Lasix will be discontinued -Hyponatremia: Secondary to excessive diuretic therapy Lasix will be held repeat chest x-ray today -Hypomagnesemia that will be corrected we'll give HER-2 grams of magnesium IV
--- NOTE | 2018-02-23 12:42 | CONS ---
BELL Farr is a 77-year-old lady with history of chronic atrial fibrillation who presented to the hospital primarily because she was having hemorrhoidal bleed and was found to be in atrial fibrillation with rapid ventricular rate. The patient has known chronic atrial fibrillation and had been on Coumadin. Her INR on admission was elevated at 8.6. At the time of my evaluation this morning, she appears comfortable at rest and is free of significant symptoms. She denies chest pain, difficulty in breathing or palpitations. The patient had shortness of breath. PAST MEDICAL HISTORY: Past medical history is significant for chronic atrial fibrillation, chronic diastolic heart failure, chronic arthritis. PAST SURGICAL HISTORY: Significant for hysterectomy. MEDICATIONS: Medications include Digitek, vitamin D, K-Dur 20 q. daily, Lipitor 20 q. daily, Lasix 20 q. daily, Protonix, Isoptin, metoprolol 25 b.i.d., Coumadin. ALLERGIES: The patient is allergic to SULFA. FAMILY HISTORY: Negative for premature coronary artery disease. SOCIAL HISTORY: Negative for smoking, EtOH abuse, or drug abuse. REVIEW OF SYSTEMS: HEENT is unremarkable. CARDIAC: As described above. RESPIRATORY: As described above. GI: As described above. GENITOURINARY: Negative. ALLERGY/IMMUNOLOGY: Negative. SKIN: Negative. MUSCULOSKELETAL: Significant for arthritis. PSYCHOSOCIAL: Negative. ENDOCRINE: Negative. HEMATOLOGIC: Negative. DERMATOLOGIC: Negative. CONSTITUTIONAL: Negative. ONCOLOGICAL: Negative. Rest of the system review is not relevant. PHYSICAL EXAMINATION: On exam, patient is comfortable at rest. Heart rate is 87 beats per minute. Blood pressure is 107/64, respiratory rate is 18. Chest exam reveals diminished air entry with occasional rhonchi. Heart exam reveals first and second heart sounds. Irregular rhythm and a systolic murmur. Abdomen is soft, nontender. Examination of extremities did not reveal any edema. Peripheral pulses are palpable. LABS: Labs show a hemoglobin of 15, platelet count is 245. INR this morning is 7.4. Creatinine is 0.48. Tropes are negative. EKG shows atrial fibrillation with poorly controlled ventricular rate and nonspecific ST-T wave changes. ASSESSMENT: 1. Hemorrhoidal bleed. 2. Chronic atrial fibrillation with poorly controlled ventricular rate. 3. Coagulopathy. 4. Hypertension. PLAN: We will see the patient is covered for Eliquis or Xarelto. If she is, we will start her on those and discharge: I believe shortness of breath is probably related to the underlying COPD and the atrial fibrillation with rapid ventricular rate. There could have been an element of diastolic heart failure. I will obtain a 2D echo on her. DAMEON / VERONIQUEN: [id number] /
[2018-02-23] MEDS: VIT A,C & E-LUTEIN-MINERALS 1 EACH TAB PO SCH (18:21)
[2018-02-23] MEDS ORDERED: Magnesium Replacement Protocol 1 EACH MISC MISCELLANE PRN (21:52)
[2018-02-24] MEDS ORDERED: MAGNESIUM SULFATE-D5W PMX 1 GM/100 ML BAG IVPB ONE ×2 (02:49)
[2018-02-24] MEDS: MAGNESIUM SULFATE-D5W PMX 1 GM in DEXTROSE/WATER 1 100ML.BAG IVPB SCH (06:08)
[2018-02-24] MEDS: PANTOPRAZOLE 40 MG TABLET PO SCH ×2 (06:43→16:13)
[2018-02-24] MEDS: SYMBICORT 80-4.5 MCG INHALER INHALATION SCH ×2 (07:23→20:43)
[2018-02-24 07:42] LABS: INR 2.4 (<1.2); Prothrombin Time 23.5 sec (9.0-12.0)
[2018-02-24 07:45] LABS: Blood Urea Nitrogen 20 mg/dL (7-17); Calcium 7.9 mg/dL (8.4-10.2); Chloride 94 mmol/L (98-107); Glucose 76 mg/dL (74-99); Potassium 4.2 mmol/L (3.5-5.1); Sodium 136 mmol/L (137-145)
[2018-02-24 07:51] LABS: Anion Gap 1 mmol/L
[2018-02-24 08:02] LABS: Carbon Dioxide 41 mmol/L (22-30)
--- NOTE | 2018-02-24 08:47 | ECHOF ---
Referral Reason:afib MEASUREMENTS -------- HEIGHT: 160.0 cm WEIGHT: 60.8 kg BP: RVIDd: 3.8 cm (< 3.3) IVSd: 1.1 cm (0.6 - 1.1) LVIDd: 4.5 cm (3.9 - 5.3) LVPWd: 1.6 cm (0.6 - 1.1) IVSs: 1.3 cm LVIDs: 4.7 cm LVPWs: 1.1 cm LA Diam: 4.7 cm (2.7 - 3.8) LAESV Index (A-L): 43.64 ml/m Ao Diam: 3.5 cm (2.0 - 3.7) AV Cusp: 1.5 cm (1.5 - 2.6) LA Diam: 3.9 cm (2.7 - 3.8) MV EXCURSION: 13.536 mm (> 18.000) MV EF SLOPE: 53 mm/s (70 - 150) EPSS: 2.3 cm MV E Cody: 1.05 m/s MV DecT: 233 ms MV A Cody: 0.01 m/s MV E/A Ratio: 89.17 RAP: 5.00 mmHg RVSP: 35.26 mmHg FINDINGS -------- Atrial fibrillation. This was a technically adequate study. The left ventricular size is normal. There is borderline concentric left ventricular hypertrophy. Overall left ventricular systolic function is severely impaired with, an EF between 25 - 30 %. The right ventricle is moderate to severely enlarged. The left atrial size is normal. The right atrium is moderately enlarged. There is mild aortic valve sclerosis. Area Of Interest AOV. Mild mitral annular calcification present. Mild mitral regurgitation is present. Mild tricuspid regurgitation present. There is mild pulmonary hypertension. The right ventricular systolic pressure, as measured by Doppler, is 35.26mmHg. Trace/mild (physiologic) pulmonic regurgitation. The aortic root size is normal. There is no pericardial effusion. CONCLUSIONS -------- 1. The left ventricular size is normal. 2. There is borderline concentric left ventricular hypertrophy. 3. Overall left ventricular systolic function is severely impaired with, an EF between 25 - 30 %. 4. The right ventricle is moderate to severely enlarged. 5. The left atrial size is normal. 6. The right atrium is moderately enlarged. 7. There is mild aortic valve sclerosis. 8. Area Of Interest AOV. 9. Mild mitral annular calcification present. 10. Mild mitral regurgitation is present. 11. Mild tricuspid regurgitation present. 12. There is mild pulmonary hypertension. 13. The right ventricular systolic pressure, as measured by Doppler, is 35.26mmHg. 14. Trace/mild (physiologic) pulmonic regurgitation. 15. The aortic root size is normal. 16. There is no pericardial effusion. TEST DESKMAN: Juli Jorgensen RDCS
[2018-02-24] MEDS ORDERED: APIXABAN 5 MG TAB PO SCH (09:00)
[2018-02-24] MEDS: POTASSIUM CHLORIDE ER 20 MEQ TAB.ER PO SCH (09:21)
[2018-02-24] MEDS: ASCORBIC ACID 500 MG TAB PO SCH (09:21)
[2018-02-24] MEDS: DIGOXIN 125 MCG TAB PO SCH (09:21)
[2018-02-24] MEDS: ATORVASTATIN 20 MG TAB PO SCH (09:21)
[2018-02-24] MEDS: CALCIUM CARBONATE 500 MG CHEWABLE PO SCH ×2 (09:21→20:51)
[2018-02-24] MEDS: VIT A,C & E-LUTEIN-MINERALS 1 EACH TAB PO SCH (09:21)
[2018-02-24] MEDS: VERAPAMIL SR 120 MG TABLET.ER PO SCH (09:21)
[2018-02-24] MEDS: METOPROLOL TARTRATE 50 MG TAB PO SCH ×3 (09:21→22:03)
[2018-02-24] MEDS: NICOTINE 14MG/24HR PATCH TRANSDERM SCH (09:21)
--- NOTE | 2018-02-24 11:19 | P.PN ---
Subjective 77-year-old female admitted secondary to lower GI bleed from suprapubic INR INR has come down to 7.1 today. Patient remains in A. fib heart rate is in 90s and 100s no more GI bleed patient is complaining of shortness of breath patient is hyponatremic because of which I'm discontinued and IV Lasix will repeat the chest x-ray make sure her pulmonary edema is better I believe her shortness of breath is secondary to be A. fib and the cardiology will evaluate the patient probably can increase the beta jaleel. Echocardiac exam is pending. 02/24/2018 Patient heart rate is well controlled INR is 2.4 today and patient will be discharged on Eliquis tomorrow patient's SATURATIONS ARE COMING DOWN CHEST X- RAY DID NOT SHOW ANY INCREASED PULMONARY EDEMA GIVE HER A DAY OF LASIX AND THE FAMILY WILL GET A MAHARAJ AND PATIENT WILL BE DISCHARGED TOMORROW. PATIENT DOESN'T HAVE ANY SIGNIFICANT COPD EXACERBATION AT THIS TIME DOES SMOKE EVERY DAY. PATIENT MAY NEED TO BE DISCHARGED TO SUBACUTE REHABILITATION Constitutional: Denied any fatigue denied any fever. Cardio vascular: As mentioned in the interval history Gastrointestinal denied any nausea vomiting Pulmonary: Refer to interval history Neurologic denied any new focal deficits All inpatient medications were reviewed and appropriate changes in these medications as dictated in the interval history and assessment and plan. Objective - Vital Signs Vital signs: Vital Signs Temp 97.9 F 02/24/18 08:00 Pulse 69 02/24/18 08:00 Resp 18 02/24/18 08:00 BP 107/72 02/24/18 08:00 Pulse Ox 94 L 02/24/18 08:00 Intake & Output 02/23/18 02/24/18 02/24/18 18:59 06:59 18:59 Intake Total 236 Output Total 1200 1201 Balance -964 -1201 Weight 61 kg 55.6 kg Intake: Oral 236 Output: Urine 1200 1200 Uretheral (Page) 1200 Urine/Stool Mix 1 Other: Voiding Method Indwelling Catheter Indwelling Catheter Indwelling Catheter # Voids 0 - Exam PHYSICAL EXAMINATION: GENERAL: The patient is alert and oriented x3, not in any acute distress. Well developed, well nourished. HEENT: Pupils are round and equally reacting to light. EOMI. No scleral icterus. No conjunctival pallor. Normocephalic, atraumatic. No pharyngeal erythema. No thyromegaly. CARDIOVASCULAR: S1 and S2 present. No murmurs, rubs, or gallops. Patient has irregularly irregular rhythm unable to clearly appreciate JVD because of atrial fibrillation PULMONARY: Chest is clear to auscultation, no wheezing or crackles. ABDOMEN: Soft, nontender, nondistended, normoactive bowel sounds. No palpable organomegaly. MUSCULOSKELETAL: No joint swelling or deformity. EXTREMITIES: No cyanosis, clubbing, does have 1+ bilateral pitting pedal edema NEUROLOGICAL: Gross neurological examination did not reveal any focal deficits. SKIN: No rashes. - Labs CBC & Chem 7: 02/22/18 09:44 02/24/18 06:37 Labs: Abnormal Lab Results - Last 24 Hours (Table) 02/24/18 02/24/18 Range/Units 06:37 06:37 PT 23.5 H (9.0-12.0) sec INR 2.4 H (<1.2) Sodium 136 L (137-145) mmol/L Chloride 94 L (98-107) mmol/L Carbon Dioxide 41 H* (22-30) mmol/L BUN 20 H (7-17) mg/dL Calcium 7.9 L (8.4-10.2) mg/dL Microbiology - Last 24 Hours (Table) 02/22/18 09:44 Blood Culture - Preliminary Blood No Growth after 24 hours Assessment and Plan Plan: -Acute lower GI bleed probably hemorrhoidal or diverticular: Secondary to subtherapeutic INR, Coumadin is being held at this time.patient will be discharged on Eliquis as mentioned above -Atrial fibrillation with rapid ventricular rate: Increasing the dose of metoprolol digoxin is being continued and patient heart rate, verapamil will be continued further management as per cardiology -Congestive heart failure chronic systolic dysfunction dysfunction with mild acute exacerbation secondary to uncontrolled heart rate and atrial fibrillation : patient will be given a day of Lasix and possibility of discharge tomorrow. -Hyponatremia: improved now -Hypomagnesemia improved with supplementation
[2018-02-24] MEDS: FUROSEMIDE 10 MG/ML 4 ML VIAL IV SCH ×2 (11:27→20:51)
--- NOTE | 2018-02-24 11:39 | P.PN ---
Subjective Progress Note Date: 02/24/18 This is a 68-year-old female who presented to the hospital with GI bleed, she was noted on presentation here to have significantly elevated INR, Coumadin had been placed on hold. Patient does have history of chronic atrial fibrillation and was on Coumadin as an outpatient. Her INR this morning is 2.4. We did look into coverage with [employer] which will cost her approximately $ 39 a month. Discussions are also being made with the daughter regarding possible ECF placement. This morning patient feels well, denies any shortness of breath, no chest discomfort, no palpitations. Blood pressure 96/60 with a heart rate in the 60s. 94% on 3 L. Pro time 23.5 with an INR 2.4. Sodium 136 , potassium 4.2, BUN 20, creatinine 0.6. Weight is down 5 kg today, patient continues to be on IV diuretics. Objective - Vital Signs Vital signs: Vital Signs Temp 97.8 F 02/24/18 11:23 Pulse 51 L 02/24/18 11:23 Resp 18 02/24/18 11:23 BP 95/53 02/24/18 11:23 Pulse Ox 94 L 02/24/18 11:23 Intake & Output 02/23/18 02/24/18 02/24/18 18:59 06:59 18:59 Intake Total 236 Output Total 1200 1201 Balance -964 -1201 Weight 61 kg 55.6 kg Intake: Oral 236 Output: Urine 1200 1200 Uretheral (Page) 1200 Urine/Stool Mix 1 Other: Voiding Method Indwelling Catheter Indwelling Catheter Indwelling Catheter # Voids 0 - Exam PHYSICAL EXAMINATION: GENERAL: This is a 77-year-old female in no acute distress at the time of my examination HEENT: Head is atraumatic, normocephalic. Pupils equal, round. Sclera anicteric. Conjunctiva are clear. Mucous membranes of the mouth are moist. Neck is supple. There is no elevated jugular venous pressure. No carotid bruit is heard. HEART EXAMINATION: Heart S1 and S2 irregularly irregular systolic murmur is heard. CHEST EXAMINATION: Lungs reveal diminished air entry bilaterally, few scattered coarse rhonchi and rales are heard. ABDOMEN: Soft, nontender. Bowel sounds are heard. No organomegaly noted. EXTREMITIES: 2+ peripheral pulses with no evidence of peripheral edema and no calf tenderness noted. NEUROLOGIC patient is awake, alert and oriented 2 . . - Labs CBC & Chem 7: 02/22/18 09:44 02/24/18 06:37 Labs: Abnormal Lab Results - Last 24 Hours (Table) 02/24/18 02/24/18 Range/Units 06:37 06:37 PT 23.5 H (9.0-12.0) sec INR 2.4 H (<1.2) Sodium 136 L (137-145) mmol/L Chloride 94 L (98-107) mmol/L Carbon Dioxide 41 H* (22-30) mmol/L BUN 20 H (7-17) mg/dL Calcium 7.9 L (8.4-10.2) mg/dL Microbiology - Last 24 Hours (Table) 02/22/18 09:44 Blood Culture - Preliminary Blood No Growth after 24 hours Assessment and Plan Plan: Assessment and plan #1 lower GI bleed, likely secondary to hemorrhoids #2 coagulopathy, INR 8.6 on admission, 2.4 this morning. #3 chronic persistent atrial fibrillation #4 hypertension #5 COPD #6 systolic congestive heart failure acute on chronic Plan Patient will be started on Eliquis from tomorrow. Echocardiogram with Doppler study revealed an ejection fraction of 25%, therefore we will discontinue the verapamil. Increase the dose of beta jaleel, add a small dose of SHAKA inhibitor , and Aldactone to her medication regime. Continue current dose of IV Lasix. DNP note has been reviewed, I agree with a documented findings and plan of care. Patient was seen and examined.
[2018-02-25] MEDS: PANTOPRAZOLE 40 MG TABLET PO SCH ×2 (06:38→16:37)
[2018-02-25 06:59] LABS: INR 1.7 (<1.2); Prothrombin Time 16.9 sec (9.0-12.0)
[2018-02-25 07:12] LABS: Blood Urea Nitrogen 17 mg/dL (7-17); Calcium 7.7 mg/dL (8.4-10.2); Chloride 91 mmol/L (98-107); Glucose 86 mg/dL (74-99); Potassium 4.3 mmol/L (3.5-5.1); Sodium 132 mmol/L (137-145)
[2018-02-25 07:19] LABS: Anion Gap -1 mmol/L
[2018-02-25 07:22] LABS: Carbon Dioxide 42 mmol/L (22-30)
[2018-02-25] MEDS: SYMBICORT 80-4.5 MCG INHALER INHALATION SCH ×2 (07:36→21:06)
--- NOTE | 2018-02-25 10:04 | P.PN ---
Subjective Progress Note Date: 02/25/18 This is a 68-year-old female who presented to the hospital with GI bleed, she was noted on presentation here to have significantly elevated INR, Coumadin had been placed on hold. Patient does have history of chronic atrial fibrillation and was on Coumadin as an outpatient. Her INR this morning is 2.4. We did look into coverage with [employer] which will cost her approximately $ 39 a month. Discussions are also being made with the daughter regarding possible ECF placement. This morning patient feels well, denies any shortness of breath, no chest discomfort, no palpitations. Blood pressure 96/60 with a heart rate in the 60s. 94% on 3 L. Pro time 23.5 with an INR 2.4. Sodium 136 , potassium 4.2, BUN 20, creatinine 0.6. Weight is down 5 kg today, patient continues to be on IV diuretics. 02/25/2018 Patient seen and examined this morning, she does state she is feeling overall better today. Started on Eliquis today. Blood pressure 108/70, heart rate in the 60s, 93% on 3 L of oxygen. Sodium 132, potassium 4.3, BUN 17 and creatinine 0.4. Currently on oral diuretics. Objective - Vital Signs Vital signs: Vital Signs Temp 97.8 F 02/25/18 03:58 Pulse 66 02/25/18 03:58 Resp 18 02/25/18 03:58 BP 107/76 02/25/18 03:58 Pulse Ox 93 L 02/25/18 03:58 Intake & Output 02/24/18 02/25/18 02/25/18 18:59 06:59 18:59 Intake Total 480 10 200 Output Total 450 1900 Balance 30 -1890 200 Weight 56.2 kg Intake: IV 10 09 10 Oral 480 200 Output: Urine 450 1900 Uretheral (Page) 1900 Other: Voiding Method Indwelling Catheter Indwelling Catheter - Exam PHYSICAL EXAMINATION: GENERAL: This is a 77-year-old female in no acute distress at the time of my examination HEENT: Head is atraumatic, normocephalic. Pupils equal, round. Sclera anicteric. Conjunctiva are clear. Mucous membranes of the mouth are moist. Neck is supple. There is no elevated jugular venous pressure. No carotid bruit is heard. HEART EXAMINATION: Heart S1 and S2 irregularly irregular systolic murmur is heard. CHEST EXAMINATION: Lungs reveal diminished air entry bilaterally, few scattered coarse rhonchi and rales are heard. ABDOMEN: Soft, nontender. Bowel sounds are heard. No organomegaly noted. EXTREMITIES: 2+ peripheral pulses with no evidence of peripheral edema and no calf tenderness noted. NEUROLOGIC patient is awake, alert and oriented 2 . . - Labs CBC & Chem 7: 02/22/18 09:44 02/25/18 06:24 Labs: Abnormal Lab Results - Last 24 Hours (Table) 02/25/18 02/25/18 Range/Units 06:24 06:24 PT 16.9 H (9.0-12.0) sec INR 1.7 H (<1.2) Sodium 132 L (137-145) mmol/L Chloride 91 L (98-107) mmol/L Carbon Dioxide 42 H* (22-30) mmol/L Creatinine 0.44 L (0.52-1.04) mg/dL Calcium 7.7 L (8.4-10.2) mg/dL Microbiology - Last 24 Hours (Table) 02/22/18 09:44 Blood Culture - Preliminary Blood No Growth after 48 hours Assessment and Plan Plan: Assessment and plan #1 lower GI bleed, likely secondary to hemorrhoids #2 coagulopathy, INR 8.6 on admission, 2.4 this morning. #3 chronic persistent atrial fibrillation #4 hypertension #5 COPD #6 systolic congestive heart failure acute on chronic Plan Patient will be started on Eliquis today. We will continue the patient on Zestril, Lasix, metoprolol, and Aldactone. DNP note has been reviewed, I agree with a documented findings and plan of care. Patient was seen and examined.
--- NOTE | 2018-02-25 10:26 | P.PN ---
Subjective 77-year-old female admitted secondary to lower GI bleed from suprapubic INR INR has come down to 7.1 today. Patient remains in A. fib heart rate is in 90s and 100s no more GI bleed patient is complaining of shortness of breath patient is hyponatremic because of which I'm discontinued and IV Lasix will repeat the chest x-ray make sure her pulmonary edema is better I believe her shortness of breath is secondary to be A. fib and the cardiology will evaluate the patient probably can increase the beta jaleel. Echocardiac exam is pending. 02/24/2018 Patient heart rate is well controlled INR is 2.4 today and patient will be discharged on Eliquis tomorrow patient's SATURATIONS ARE COMING DOWN CHEST X- RAY DID NOT SHOW ANY INCREASED PULMONARY EDEMA GIVE HER A DAY OF LASIX AND THE FAMILY WILL GET A MAHARAJ AND PATIENT WILL BE DISCHARGED TOMORROW. PATIENT DOESN'T HAVE ANY SIGNIFICANT COPD EXACERBATION AT THIS TIME DOES SMOKE EVERY DAY. PATIENT MAY NEED TO BE DISCHARGED TO SUBACUTE REHABILITATION 02/25/2018 Patient has contraction alkalosis and mildly low serum sodium because of hyperlipoidemia hyponatremia IV Lasix will be switched to oral Lasix. Patient is still requiring 3 L of oxygen may have a competent of COPD patient will be started on low-dose of oral steroids. Patient is still tachycardic. Metoprolol dose is being increased today patient will be started on Eliquis. Constitutional: Denied any fatigue denied any fever. Cardio vascular: As mentioned in the interval history Gastrointestinal denied any nausea vomiting Pulmonary: Refer to interval history Neurologic denied any new focal deficits All inpatient medications were reviewed and appropriate changes in these medications as dictated in the interval history and assessment and plan. Objective - Vital Signs Vital signs: Vital Signs Temp 97.8 F 02/25/18 03:58 Pulse 66 02/25/18 03:58 Resp 18 02/25/18 03:58 BP 107/76 02/25/18 03:58 Pulse Ox 93 L 02/25/18 03:58 Intake & Output 02/24/18 02/25/18 02/25/18 18:59 06:59 18:59 Intake Total 480 10 200 Output Total 450 1900 Balance 30 -1890 200 Weight 56.2 kg Intake: IV 10 09 10 Oral 480 200 Output: Urine 450 1900 Uretheral (Page) 1900 Other: Voiding Method Indwelling Catheter Indwelling Catheter - Exam PHYSICAL EXAMINATION: GENERAL: The patient is alert and oriented x3, not in any acute distress. Well developed, well nourished. HEENT: Pupils are round and equally reacting to light. EOMI. No scleral icterus. No conjunctival pallor. Normocephalic, atraumatic. No pharyngeal erythema. No thyromegaly. CARDIOVASCULAR: S1 and S2 present. No murmurs, rubs, or gallops. Patient has irregularly irregular rhythm unable to clearly appreciate JVD because of atrial fibrillation PULMONARY: Chest is clear to auscultation, no wheezing or crackles. ABDOMEN: Soft, nontender, nondistended, normoactive bowel sounds. No palpable organomegaly. MUSCULOSKELETAL: No joint swelling or deformity. EXTREMITIES: No cyanosis, clubbing, does have 1+ bilateral pitting pedal edema NEUROLOGICAL: Gross neurological examination did not reveal any focal deficits. SKIN: No rashes. - Labs CBC & Chem 7: 02/22/18 09:44 02/25/18 06:24 Labs: Abnormal Lab Results - Last 24 Hours (Table) 02/25/18 02/25/18 Range/Units 06:24 06:24 PT 16.9 H (9.0-12.0) sec INR 1.7 H (<1.2) Sodium 132 L (137-145) mmol/L Chloride 91 L (98-107) mmol/L Carbon Dioxide 42 H* (22-30) mmol/L Creatinine 0.44 L (0.52-1.04) mg/dL Calcium 7.7 L (8.4-10.2) mg/dL Microbiology - Last 24 Hours (Table) 02/22/18 09:44 Blood Culture - Preliminary Blood No Growth after 48 hours Assessment and Plan Plan: -Acute lower GI bleed probably hemorrhoidal or diverticular: Secondary to subtherapeutic INR, Coumadin is being held at this time.patient was switched to Eliquis as mentioned above -Atrial fibrillation with rapid ventricular rate: Increasing the dose of metoprolol digoxin is being continued and patient heart rate, verapamil will be discontinued because of her low ejection fraction -Possible COPD with acute exacerbation patient was started on oral steroids as mentioned above -Congestive heart failure chronic systolic dysfunction dysfunction with mild acute exacerbation secondary to uncontrolled heart rate and atrial fibrillation : She will be switched to oral Lasix patient was started on SHAKA inhibitor Aldactone. -Hyponatremia: improved now -Hypomagnesemia improved with supplementation
[2018-02-25] MEDS: ASCORBIC ACID 500 MG TAB PO SCH (10:32)
[2018-02-25] MEDS: APIXABAN 5 MG TAB PO SCH ×3 (10:32→20:31)
[2018-02-25] MEDS: DIGOXIN 125 MCG TAB PO SCH (10:33)
[2018-02-25] MEDS: ATORVASTATIN 20 MG TAB PO SCH (10:33)
[2018-02-25] MEDS: NICOTINE 14MG/24HR PATCH TRANSDERM SCH (10:33)
[2018-02-25] MEDS: POTASSIUM CHLORIDE ER 20 MEQ TAB.ER PO SCH (10:33)
[2018-02-25] MEDS: SPIRONOLACTONE 25 MG TAB PO SCH (10:34)
[2018-02-25] MEDS: METOPROLOL TARTRATE 50 MG TAB PO SCH ×3 (10:38→20:30)
[2018-02-25] MEDS: CALCIUM CARBONATE 500 MG CHEWABLE PO SCH ×2 (10:42→20:30)
[2018-02-25] MEDS: FUROSEMIDE 10 MG/ML 4 ML VIAL IV SCH (12:24)
[2018-02-25] MEDS: predniSONE 20 MG TAB PO SCH (12:50)
[2018-02-25] MEDS: LISINOPRIL 5 MG TAB PO SCH (12:50)
[2018-02-25] MEDS: VIT A,C & E-LUTEIN-MINERALS 1 EACH TAB PO SCH (12:50)
[2018-02-25] MEDS: FUROSEMIDE 40 MG TAB PO SCH (16:37)
[2018-02-26] MEDS: PANTOPRAZOLE 40 MG TABLET PO SCH ×2 (06:49→18:10)
[2018-02-26 07:32] LABS: Anion Gap 3 mmol/L; Blood Urea Nitrogen 16 mg/dL (7-17); Calcium 8.1 mg/dL (8.4-10.2); Carbon Dioxide 39 mmol/L (22-30); Chloride 90 mmol/L (98-107); Glucose 85 mg/dL (74-99); Potassium 5.3 mmol/L (3.5-5.1); Sodium 132 mmol/L (137-145)
[2018-02-26 07:33] LABS: INR 1.3 (<1.2)
[2018-02-26] MEDS: SYMBICORT 80-4.5 MCG INHALER INHALATION SCH ×2 (08:28→19:41)
[2018-02-26] MEDS: FUROSEMIDE 40 MG TAB PO SCH ×2 (09:09→14:50)
[2018-02-26] MEDS: METOPROLOL TARTRATE 50 MG TAB PO SCH ×2 (09:09→18:08)
[2018-02-26] MEDS: CALCIUM CARBONATE 500 MG CHEWABLE PO SCH ×2 (09:09→20:10)
[2018-02-26] MEDS: predniSONE 20 MG TAB PO SCH (09:09)
[2018-02-26] MEDS: DIGOXIN 125 MCG TAB PO SCH (09:10)
[2018-02-26] MEDS: ASCORBIC ACID 500 MG TAB PO SCH (09:10)
[2018-02-26] MEDS: APIXABAN 5 MG TAB PO SCH (09:10)
[2018-02-26] MEDS: ATORVASTATIN 20 MG TAB PO SCH (09:10)
[2018-02-26] MEDS: NICOTINE 14MG/24HR PATCH TRANSDERM SCH ×3 (09:10→18:11)
[2018-02-26] MEDS: SPIRONOLACTONE 25 MG TAB PO SCH (09:12)
--- NOTE | 2018-02-26 09:47 | PN ---
PROGRESS NOTE Chika is a 77-year-old lady who is admitted to hospital with lower GI bleed, chronic atrial fibrillation, and coagulopathy. She is currently on Eliquis. Coumadin had been stopped. She is feeling better, shortness of breath has improved. On exam, vital signs are stable. Heart rate is 60 beats per minute. Blood pressure is 100/57. Chest exam reveals occasional rhonchi bilaterally. Heart exam reveals first and second heart sounds. No gallop. Exam of the extremities did not reveal any edema. Labs show a potassium of 5.3, creatinine of 0.4. ASSESSMENT: 1. Chronic atrial fibrillation with controlled ventricular rate. 2. Coagulopathy. 3. Acute exacerbation of chronic systolic heart failure. 4. Lower gastrointestinal bleed. PLAN: Patient will continue the Lasix 40 b.i.d. Will continue the metoprolol at 50 t.i.d., stop the K-Dur because of the elevated potassium and if the potassium remains elevated, I will consider stopping the Aldactone. She is on Zestril, which she is going to continue and Eliquis that she is going to continue. MMODL / IJN: [id number] /
[2018-02-26] MEDS ORDERED: SODIUM POLYSTYRENE SULFONATE 15 GM/60 ML BOTTLE PO STA (09:58)
--- NOTE | 2018-02-26 12:05 | P.PN ---
Subjective 77-year-old female admitted secondary to lower GI bleed from suprapubic INR INR has come down to 7.1 today. Patient remains in A. fib heart rate is in 90s and 100s no more GI bleed patient is complaining of shortness of breath patient is hyponatremic because of which I'm discontinued and IV Lasix will repeat the chest x-ray make sure her pulmonary edema is better I believe her shortness of breath is secondary to be A. fib and the cardiology will evaluate the patient probably can increase the beta jaleel. Echocardiac exam is pending. 02/24/2018 Patient heart rate is well controlled INR is 2.4 today and patient will be discharged on Eliquis tomorrow patient's SATURATIONS ARE COMING DOWN CHEST X- RAY DID NOT SHOW ANY INCREASED PULMONARY EDEMA GIVE HER A DAY OF LASIX AND THE FAMILY WILL GET A MAHARAJ AND PATIENT WILL BE DISCHARGED TOMORROW. PATIENT DOESN'T HAVE ANY SIGNIFICANT COPD EXACERBATION AT THIS TIME DOES SMOKE EVERY DAY. PATIENT MAY NEED TO BE DISCHARGED TO SUBACUTE REHABILITATION 02/25/2018 Patient has contraction alkalosis and mildly low serum sodium because of hyperlipoidemia hyponatremia IV Lasix will be switched to oral Lasix. Patient is still requiring 3 L of oxygen may have a competent of COPD patient will be started on low-dose of oral steroids. Patient is still tachycardic. Metoprolol dose is being increased today patient will be started on Eliquis. 02/26/2018 Patient had an episode of GI bleed secondary to possible rectal prolapse to the surgery was consulted. An echo was from yesterday was held and no more GI bleed today probably need to cut down the leg was to 2.5 mg twice a day area patient remains bit hyponatremic after starting prednisone her respiratory status improved patient may have mild COPD exacerbation which is making her short of breath patient is saturating 100% today because of which will try and wean her oxygen today. Other issues patient became hyperkalemic patient is on potassium supplementation along with Aldactone and the lisinopril patient unfortunately already received Aldactone and lisinopril today because of which her potassium will be elevated even more tomorrow, I'll order Kayexalate. Patient probably can be discharged to subacute rehabilitation tomorrow Constitutional: Denied any fatigue denied any fever. Cardio vascular: As mentioned in the interval history Gastrointestinal denied any nausea vomiting Pulmonary: Refer to interval history Neurologic denied any new focal deficits All inpatient medications were reviewed and appropriate changes in these medications as dictated in the interval history and assessment and plan. Objective - Vital Signs Vital signs: Vital Signs Temp 97.8 F 02/26/18 07:29 Pulse 63 02/26/18 07:29 Resp 18 02/26/18 07:29 BP 100/57 02/26/18 07:29 Pulse Ox 100 02/26/18 07:29 Intake & Output 02/25/18 02/26/18 02/26/18 18:59 06:59 18:59 Intake Total 200 10 120 Output Total 750 800 Balance -550 -790 120 Weight 56.4 kg Intake: IV 10 09 10 Oral 200 120 Output: Urine 750 800 Uretheral (Page) 700 Other: Voiding Method Indwelling Catheter Indwelling Catheter # Voids 1 # Bowel Movements 1 - Exam PHYSICAL EXAMINATION: GENERAL: The patient is alert and oriented x3, not in any acute distress. Well developed, well nourished. HEENT: Pupils are round and equally reacting to light. EOMI. No scleral icterus. No conjunctival pallor. Normocephalic, atraumatic. No pharyngeal erythema. No thyromegaly. CARDIOVASCULAR: S1 and S2 present. No murmurs, rubs, or gallops. Patient has irregularly irregular rhythm unable to clearly appreciate JVD because of atrial fibrillation PULMONARY: Minimal expiratory wheeze on exam ABDOMEN: Soft, nontender, nondistended, normoactive bowel sounds. No palpable organomegaly. MUSCULOSKELETAL: No joint swelling or deformity. EXTREMITIES: No cyanosis, clubbing, does have 1+ bilateral pitting pedal edema NEUROLOGICAL: Gross neurological examination did not reveal any focal deficits. SKIN: No rashes. - Labs CBC & Chem 7: 02/22/18 09:44 02/26/18 07:00 Labs: Abnormal Lab Results - Last 24 Hours (Table) 02/26/18 02/26/18 Range/Units 07:00 07:00 PT 13.0 H (9.0-12.0) sec INR 1.3 H (<1.2) Sodium 132 L (137-145) mmol/L Potassium 5.3 H (3.5-5.1) mmol/L Chloride 90 L (98-107) mmol/L Carbon Dioxide 39 H (22-30) mmol/L Creatinine 0.43 L (0.52-1.04) mg/dL Calcium 8.1 L (8.4-10.2) mg/dL Microbiology - Last 24 Hours (Table) 02/22/18 09:44 Blood Culture - Preliminary Blood No Growth after 72 hours Assessment and Plan Plan: -Acute lower GI bleed: Patient appears to have rectal prolapse general surgery will be consulted. We'll cut down the dose of Levaquin systems she is not bleeding today with good and given liquids today and will monitor today. -Atrial fibrillation with rapid ventricular rate: Presently rate controlled regarding anti-correlation as mentioned above. Patient is off verapamil verapamil was discontinued during this hospital physician because of the poor ejection fraction. -Hyperkalemia secondary to Aldactone, lisinopril and potassium supplementation. Management as mentioned above -Possible COPD with acute exacerbation: Improved AND saturations on oral steroids although still wheezing a bit -Congestive heart failure chronic systolic dysfunction dysfunction with mild acute exacerbation secondary to uncontrolled heart rate and atrial fibrillation : Presently on oral Lasix, Aldactone will be held because of hyperkalemia along with holding potassium -Hyponatremia: Remains bit hyponatremic -Hypomagnesemia improved with supplementation
[2018-02-26] MEDS: LISINOPRIL 5 MG TAB PO SCH (12:34)
[2018-02-26] MEDS: VIT A,C & E-LUTEIN-MINERALS 1 EACH TAB PO SCH (13:09)
[2018-02-26] MEDS ORDERED: IPRATROPIUM-ALBUTEROL 3 ML NEB INHALATION PRN (13:25)
--- NOTE | 2018-02-26 13:25 | P.CONS ---
History of Present Illness - Reason for Consult Consult date: 02/26/18 Hemorrhoid Requesting physician: Ever Chavez - Chief Complaint Rectal bleeding supratherapeutic INR - History of Present Illness 77-year-old female admitted 02/22/2018 with shortness of breath possible exacerbation of COPD, CHF exacerbation, rectal bleeding supratherapeutic INR history of A. fib maintained on warfarin. Consultation requested for evaluation of hemorrhoid. Admission hemoglobin 15. INR 8.6 presently 1.3. BUN 16. FOBT negative. Warfarin discontinued change to Eliquis. Nursing reports bowel movements sometimes tinged with red blood sometimes red blood when wiping. No gross bloody bowel movements or clots. Nursing also reports a gold ball size bulge from rectum yesterday nothing today. Patient is [facility] [facility] she is unsure if shes had a colonoscopy in the past. Review of Systems Constitutional: Denies fever, chills, sweats, weight gain, or loss. HEENT: Negative for migraines, blurred vision or loss, earaches, drainage, tinnitus, oral mucosal lesions, dysphagia, or odynophagia. CARDIAC: Negative for chest pain, history of arrhythmias, or palpitation. RESPIRATORY: Admitted with shortness of breath, denies hemoptysis, cough, or sputum production. GI: See HPI for pertinent findings. : Negative for hematuria, urgency, frequency, polyuria, or dysuria. GYNc: Negative vaginal discharge. MUSCULOSKELETAL: Negative for muscle aches, swelling, arthritis, and arthralgias. NEUROLOGIC: Negative for stroke or TIA. ENDOCRINE: Negative for thyroid problems. SKIN: Negative for rash or itching. 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 History of Any Multi-Drug Resistant Organisms: None Reported Past Surgical History: Back Surgery, Hysterectomy Additional Past Surgical History / Comment(s): cataracts Past Anesthesia/Blood Transfusion Reactions: No Reported Reaction Smoking Status: Former smoker - Past Family History Mother Family Medical History: Cancer Additional Family Medical History / Comment(s): esophageal CA Father Family Medical History: Myocardial Infarction ([place]) Medications and Allergies Home Medications Medication Instructions Recorded Confirmed Type Digoxin [Digitek] 125 mcg PO DAILY 12/07/16 02/22/18 History Ergocalciferol [Vitamin D2 50,000 unit PO Q30D 12/07/16 02/22/18 History (DRISDOL)] Potassium Chloride ER [K-Dur 20] 20 meq PO DAILY 12/07/16 02/22/18 History Vit C/E/Zn/Coppr/Lutein/Zeaxan 1 cap PO DAILY 12/07/16 02/22/18 History [Preservision Areds 2 Softgel] Atorvastatin [Lipitor] 20 mg PO DAILY tab 12/15/16 02/22/18 Rx Furosemide [Lasix] 20 mg PO DAILY tab 12/15/16 02/22/18 Rx Pantoprazole [Protonix] 40 mg PO AC-BID tablet.dr 12/15/16 02/22/18 Rx Verapamil Sr [Isoptin Sr] 120 mg PO DAILY tablet.er 12/15/16 02/22/18 Rx Ascorbic Acid [Vitamin C] 500 mg PO DAILY 02/22/18 02/22/18 History Calcium Carbonate [Calcium] 600 mg PO BID 02/22/18 02/22/18 History Fluticasone/Salmeterol [Advair 1 puff INHALATION RT-BID 02/22/18 02/22/18 History 250-50 Diskus] Metoprolol Tartrate [Lopressor] 25 mg PO Q12H 02/22/18 02/22/18 History Warfarin Sodium [Coumadin] 4 mg PO SUMOTUWETH@1800 02/22/18 02/22/18 History Warfarin [Coumadin] 5 mg PO FRSA 02/22/18 02/22/18 History Allergies Allergy/AdvReac Type Severity Reaction Status Date / Time Sulfa (Sulfonamide Allergy Rash/Hives Verified 02/22/18 10:21 Antibiotics) Physical Exam Vitals: Vital Signs Temp Pulse Resp BP Pulse Ox 02/26/18 07:29 97.8 F 63 15 100/57 100 02/26/18 04:00 98.6 F 75 18 96/65 100 02/26/18 00:00 98.3 F 77 18 93/58 98 02/25/18 20:00 98.1 F 86 18 103/56 90 L 02/25/18 15:10 98.8 F 93 22 117/67 94 L 02/25/18 11:50 98.2 F 77 16 100/60 92 L Intake and Output 02/25/18 02/26/18 02/26/18 22:59 06:59 14:59 Intake Total 10 120 Output Total 750 800 Balance -750 -790 120 Intake: IV 10 09 10 Oral 120 Output: Urine 750 800 Uretheral (Page) 700 Other: Voiding Method Indwelling Catheter Indwelling Catheter # Voids 1 # Bowel Movements 1 Weight 56.4 kg General appearance: The patient is alert, oriented, in no acute distress. HET: Head is normocephalic and atraumatic. Pupils are equal and reactive. Oropharynx is clear without lesions. Neck: Supple without lymphadenopathy. Trachea midline. Heart: S1 S2. Regular rate and rhythm. Lungs: Diminished throughout. Abdomen: Soft, nontender, nondistended with bowel sounds. No peritoneal signs. No palpable organomegaly or masses. Extremities: Normal skin color and turgor. No cyanosis, rash, ulceration, clubbing, or edema. Radial and pedal pulses are 2/4 bilaterally. Neurological: No focal deficits. Strength and sensation are grossly intact. Rectal: Nonthrombosed external hemorrhoids; rectal prolapse not appreciated on exam; patient was asked to bear down witih no response. Results CBC & Chem 7: 02/22/18 09:44 02/26/18 07:00 Labs: Abnormal Lab Results - Last 24 Hours (Table) 02/26/18 02/26/18 Range/Units 07:00 07:00 PT 13.0 H (9.0-12.0) sec INR 1.3 H (<1.2) Sodium 132 L (137-145) mmol/L Potassium 5.3 H (3.5-5.1) mmol/L Chloride 90 L (98-107) mmol/L Carbon Dioxide 39 H (22-30) mmol/L Creatinine 0.43 L (0.52-1.04) mg/dL Calcium 8.1 L (8.4-10.2) mg/dL Microbiology - Last 24 Hours (Table) 02/22/18 09:44 Blood Culture - Preliminary Blood No Growth after 72 hours Assessment and Plan (1) Rectal bleeding Narrative/Plan: Most likely perirectal in origin exacerbation of hemorrhoids and possible irritation from rectal prolapse; Presently no evidence of rectal prolapse or bleeding. Current Visit: Yes Status: Acute Code(s): K62.5 - HEMORRHAGE OF ANUS AND RECTUM SNOMED Code(s): 48651693 (2) Congestive heart failure (CHF) Current Visit: Yes Status: Acute Code(s): I50.9 - HEART FAILURE, UNSPECIFIED SNOMED Code(s): 05775402 (3) Coumadin toxicity Current Visit: Yes Status: Acute Code(s): T45.511A - POISONING BY ANTICOAGULANTS, ACCIDENTAL, INIT SNOMED Code(s): 34933045 (4) COPD (chronic obstructive pulmonary disease) Current Visit: No Status: Acute Code(s): J44.9 - CHRONIC OBSTRUCTIVE PULMONARY DISEASE, UNSPECIFIED SNOMED Code(s): 23682658 (5) Chronic a-fib Current Visit: No Status: Acute Code(s): I48.2 - CHRONIC ATRIAL FIBRILLATION SNOMED Code(s): 191849421 Plan: 1. Local hemorrhoidal care suppositories as needed. General surgical consult recommended. 2. Outpatient colonoscopy sigmoidoscopy if not previously performed and or if bleeding persists; patient will need to hold anticoagulation prior to exam. 3. Patient will require pulmonary/ medical clearance prior to exam. Thank you for this kind referral and the opportunity to participate in the care of your patient. This consultation was discussed with Dr. Miguel. The impression and plan of care have been directed as dictated.
[2018-02-26] MEDS ORDERED: WARFARIN 5 MG TAB PO SCH (14:09)
[2018-02-26] MEDS: IPRATROPIUM-ALBUTEROL 3 ML NEB INHALATION SCH ×2 (16:06→19:41)
[2018-02-26] MEDS: HYDROCORTISONE SUPPOSITORY 25 MG SUPP RECTAL SCH (20:10)
[2018-02-26] MEDS: METOPROLOL TARTRATE 25 MG TAB PO SCH (20:10)
[2018-02-26] MEDS: APIXABAN 2.5 MG TABLET PO SCH (20:10)
[2018-02-27] MEDS: PANTOPRAZOLE 40 MG TABLET PO SCH ×3 (06:44→21:21)
[2018-02-27 07:16] LABS: HCT 42.6 % (34.0-46.0); HGB 13.7 gm/dL (11.4-16.0); MCH 34.2 pg (25.0-35.0); MCHC 32.2 g/dL (31.0-37.0); MCV 106.2 fL (80.0-100.0); Macrocytosis Moderate; Mean Platelet Volume 6.8; Platelet Count 216 k/uL (150-450); RBC 4.01 m/uL (3.80-5.40); WBC 12.5 k/uL (3.8-10.6)
[2018-02-27 07:28] LABS: INR 1.2 (<1.2); Prothrombin Time 12.1 sec (9.0-12.0)
[2018-02-27 07:35] LABS: Blood Urea Nitrogen 23 mg/dL (7-17); Calcium 7.8 mg/dL (8.4-10.2); Chloride 88 mmol/L (98-107); Glucose 98 mg/dL (74-99); Potassium 4.1 mmol/L (3.5-5.1); Sodium 132 mmol/L (137-145)
[2018-02-27 07:41] LABS: Anion Gap 3 mmol/L
[2018-02-27 07:50] LABS: Carbon Dioxide 41 mmol/L (22-30)
[2018-02-27] MEDS: SYMBICORT 80-4.5 MCG INHALER INHALATION SCH ×2 (08:15→19:14)
[2018-02-27] MEDS: IPRATROPIUM-ALBUTEROL 3 ML NEB INHALATION SCH ×4 (08:15→19:14)
[2018-02-27] MEDS: APIXABAN 2.5 MG TABLET PO SCH (08:50)
[2018-02-27] MEDS: CALCIUM CARBONATE 500 MG CHEWABLE PO SCH ×2 (08:50→21:21)
[2018-02-27] MEDS: ASCORBIC ACID 500 MG TAB PO SCH (08:50)
[2018-02-27] MEDS: ATORVASTATIN 20 MG TAB PO SCH (08:50)
[2018-02-27] MEDS: predniSONE 20 MG TAB PO SCH (08:51)
[2018-02-27] MEDS: NICOTINE 14MG/24HR PATCH TRANSDERM SCH (08:51)
[2018-02-27] MEDS: METOPROLOL TARTRATE 25 MG TAB PO SCH ×2 (08:51→21:21)
[2018-02-27] MEDS: DIGOXIN 125 MCG TAB PO SCH (08:51)
[2018-02-27] MEDS: FUROSEMIDE 40 MG TAB PO SCH ×2 (10:29→15:39)
--- NOTE | 2018-02-27 10:48 | XR ---
EXAMINATION TYPE: XR chest 1V DATE OF EXAM: 02/27/2018 HISTORY: sob. REFERENCE: Previous study dated 02/23/2018. FINDINGS: The heart is mildly enlarged. There are chronic interstitial changes throughout the lungs. There is confluent opacity behind the left heart. There is a left-sided effusion. There is patchy opa city at the right lung base. IMPRESSION: 1. WORSENING OPACITY OF THE RIGHT LUNG BASE. 2. I CANNOT EXCLUDE A LEFT-SIDED EFFUSION. 3. CHRONIC INTERSTITIAL CHANGE AND CARDIOMEGALY.
[2018-02-27] MEDS: VIT A,C & E-LUTEIN-MINERALS 1 EACH TAB PO SCH (11:19)
[2018-02-27] MEDS: AZITHROMYCIN 500 MG TAB PO SCH (11:19)
--- NOTE | 2018-02-27 11:25 | P.PN ---
Subjective 77-year-old female admitted secondary to lower GI bleed from suprapubic INR INR has come down to 7.1 today. Patient remains in A. fib heart rate is in 90s and 100s no more GI bleed patient is complaining of shortness of breath patient is hyponatremic because of which I'm discontinued and IV Lasix will repeat the chest x-ray make sure her pulmonary edema is better I believe her shortness of breath is secondary to be A. fib and the cardiology will evaluate the patient probably can increase the beta jaleel. Echocardiac exam is pending. 02/24/2018 Patient heart rate is well controlled INR is 2.4 today and patient will be discharged on Eliquis tomorrow patient's SATURATIONS ARE COMING DOWN CHEST X- RAY DID NOT SHOW ANY INCREASED PULMONARY EDEMA GIVE HER A DAY OF LASIX AND THE FAMILY WILL GET A MAHARAJ AND PATIENT WILL BE DISCHARGED TOMORROW. PATIENT DOESN'T HAVE ANY SIGNIFICANT COPD EXACERBATION AT THIS TIME DOES SMOKE EVERY DAY. PATIENT MAY NEED TO BE DISCHARGED TO SUBACUTE REHABILITATION 02/25/2018 Patient has contraction alkalosis and mildly low serum sodium because of hyperlipoidemia hyponatremia IV Lasix will be switched to oral Lasix. Patient is still requiring 3 L of oxygen may have a competent of COPD patient will be started on low-dose of oral steroids. Patient is still tachycardic. Metoprolol dose is being increased today patient will be started on Eliquis. 02/26/2018 Patient had an episode of GI bleed secondary to possible rectal prolapse to the surgery was consulted. An echo was from yesterday was held and no more GI bleed today probably need to cut down the leg was to 2.5 mg twice a day area patient remains bit hyponatremic after starting prednisone her respiratory status improved patient may have mild COPD exacerbation which is making her short of breath patient is saturating 100% today because of which will try and wean her oxygen today. Other issues patient became hyperkalemic patient is on potassium supplementation along with Aldactone and the lisinopril patient unfortunately already received Aldactone and lisinopril today because of which her potassium will be elevated even more tomorrow, I'll order Kayexalate. Patient probably can be discharged to subacute rehabilitation tomorrow 02/27/2018 Patient had a multiple episodes of soft stools today probably secondary to Paxil 8. HE to hold one more that today's dose of Lasix because of her continued hyponatremia. Patient had rectal bleeding today because of which antiplatelet correlation will be discontinued patient is high risk for stroke but because of her multiple episodes of GI bleed are not able to continue that correlation discussed with cardiology try to extract the patient because of her hearing problem patient didn't understand very well. Patient was pretty status is worse patient has rhonchus breath sounds all obtain a chest x-ray depending on the chest x-ray she may or may not need Lasix. Patient will be started on doxycycline I'll increase the dose of prednisone to 40 mg daily patient does have increased wheeze today. Constitutional: Denied any fatigue denied any fever. Cardio vascular: As mentioned in the interval history Gastrointestinal denied any nausea vomiting Pulmonary: Refer to interval history Neurologic denied any new focal deficits All inpatient medications were reviewed and appropriate changes in these medications as dictated in the interval history and assessment and plan. Objective - Vital Signs Vital signs: Vital Signs Temp 97.9 F 02/27/18 08:00 Pulse 107 H 02/27/18 11:05 Resp 18 02/27/18 11:05 BP 97/59 02/27/18 11:05 Pulse Ox 93 L 02/27/18 11:05 Intake & Output 02/26/18 02/27/18 02/27/18 18:59 06:59 18:59 Intake Total 360 180 Output Total 200 Balance 360 -200 180 Weight 57.9 kg Intake: Oral 360 180 Output: Urine/Stool Mix 200 Other: Voiding Method Diaper Diaper Diaper Incontinent Incontinent Incontinent # Voids 2 1 # Bowel Movements 1 1 1 - Exam PHYSICAL EXAMINATION: GENERAL: The patient is alert and oriented x3, not in any acute distress. Well developed, well nourished. HEENT: Pupils are round and equally reacting to light. EOMI. No scleral icterus. No conjunctival pallor. Normocephalic, atraumatic. No pharyngeal erythema. No thyromegaly. CARDIOVASCULAR: S1 and S2 present. No murmurs, rubs, or gallops. Patient has irregularly irregular rhythm unable to clearly appreciate JVD because of atrial fibrillation PULMONARY: Minimal expiratory wheeze on exam rhonchus breath sounds. ABDOMEN: Soft, nontender, nondistended, normoactive bowel sounds. No palpable organomegaly. MUSCULOSKELETAL: No joint swelling or deformity. EXTREMITIES: No cyanosis, clubbing, does have 1+ bilateral pitting pedal edema NEUROLOGICAL: Gross neurological examination did not reveal any focal deficits. SKIN: No rashes. - Labs CBC & Chem 7: 02/27/18 06:51 02/27/18 06:51 Labs: Abnormal Lab Results - Last 24 Hours (Table) 02/27/18 02/27/18 02/27/18 Range/Units 06:51 06:51 06:51 WBC 12.5 H (3.8-10.6) k/uL MCV 106.2 H (80.0-100.0) fL PT 12.1 H (9.0-12.0) sec INR 1.2 H (<1.2) Sodium 132 L (137-145) mmol/L Chloride 88 L (98-107) mmol/L Carbon Dioxide 41 H* (22-30) mmol/L BUN 23 H (7-17) mg/dL Creatinine 0.51 L (0.52-1.04) mg/dL Calcium 7.8 L (8.4-10.2) mg/dL Microbiology - Last 24 Hours (Table) 02/22/18 09:44 Blood Culture - Preliminary Blood No Growth after 96 hours Assessment and Plan Plan: -Acute lower GI bleed: She does have hemorrhoids maybe even rectal prolapse and the patient had the be GI bleed today in spite of 2.5 mg of eliquis, which will be discontinued at this time. -Atrial fibrillation with rapid ventricular rate: Presently rate controlled regarding anticoagulation as mentioned above. Patient is off verapamil verapamil was discontinued during this hospital physician because of the poor ejection fraction. -Hyperkalemia secondary to Aldactone, lisinopril and potassium supplementation. Management as mentioned above can you to hold the Aldactone continue with lisinopril. -Worsening infiltrate in the left lower lobe all start her on Rocephin and doxycycline no clear cut evidence of pneumonia. -Possible COPD with acute exacerbation: Improved AND saturations on oral steroids although still wheezing a bit -Congestive heart failure chronic systolic dysfunction dysfunction with mild acute exacerbation secondary to uncontrolled heart rate and atrial fibrillation : Presently on oral Lasix, Aldactone will be held because of hyperkalemia along with holding potassium -Hyponatremia: Remains bit hyponatremic -Hypomagnesemia improved with supplementation
--- NOTE | 2018-02-27 12:31 | P.PN ---
Subjective This is a 77-year-old female is in the hospital with bright red blood in his stool, chronic atrial fibrillation on long-term anticoagulation with Coumadin and supratherapeutic INR. Coumadin has been stopped and INR is stable. She has been seen in evaluation by GI services and noted to have a hemorrhoid. Surgical opinion recommended. She continues to complain of shortness of breath and sounds quite rhonchorous today. She is also complaining of multiple loose stools. She is coughing but not bringing up any phlegm. She denies symptoms of chest discomfort, dizziness or palpitations. Blood pressure 97/59 heart rate 76. Laboratory data reviewed, WBC 12.5, hemoglobin 13.7, INR 1.2, sodium 132, potassium 4.1, creatinine 0.51. Eliquis resumed and was discontinued per primary care this morning. Currently maintained on atorvastatin 20 mg daily, digoxin 125 g daily, Lasix 40 mg by mouth twice a day, metoprolol 25 mg twice a day. Ejection fraction 25-30%. GENERAL: Well-appearing, well-nourished and in no acute distress. NECK: Supple without JVD or thyromegaly. LUNGS: Course rhonchi bilaterally, no wheezes or rales. Respiration equal and unlabored. HEART: Regular rate and rhythm without murmurs, rubs or gallops. S1 and S2 heard. EXTREMITIES: Normal range of motion, no edema. No clubbing or cyanosis. Peripheral pulses intact. ASSESSMENT Chronic persistent atrial fibrillation with controlled ventricular response on long-term anticoagulation Supratherapeutic INR secondary to Coumadin toxicity, resolved Acute exacerbation of chronic systolic heart failure Lower gastrointestinal bleed Diarrhea Hyperkalemia, resolved PLAN From cardiology's perspective we recommend resuming anticoagulation. She has a stable hemoglobin with evidence of hemorrhoid. No acute GI bleeding. Lisinopril and Aldactone have been held secondary to hyperkalemia and hypotension. We will continue to follow make recommendations accordingly. The above impression and plan of care have been discussed and directed by the signing physician. Mary Kay Paris, nurse practitioner, acting as scribe for signing physician. Objective - Vital Signs Vital signs: Vital Signs Temp 97.9 F 02/27/18 08:00 Pulse 80 02/27/18 11:50 Resp 18 02/27/18 11:36 BP 97/59 02/27/18 11:05 Pulse Ox 93 L 02/27/18 11:05 Intake & Output 02/26/18 02/27/18 02/27/18 18:59 06:59 18:59 Intake Total 360 180 Output Total 200 Balance 360 -200 180 Weight 57.9 kg Intake: Oral 360 180 Output: Urine/Stool Mix 200 Other: Voiding Method Diaper Diaper Diaper Incontinent Incontinent Incontinent # Voids 2 1 # Bowel Movements 1 1 1 - Labs CBC & Chem 7: 02/27/18 06:51 02/27/18 06:51 Labs: Abnormal Lab Results - Last 24 Hours (Table) 02/27/18 02/27/18 02/27/18 Range/Units 06:51 06:51 06:51 WBC 12.5 H (3.8-10.6) k/uL MCV 106.2 H (80.0-100.0) fL PT 12.1 H (9.0-12.0) sec INR 1.2 H (<1.2) Sodium 132 L (137-145) mmol/L Chloride 88 L (98-107) mmol/L Carbon Dioxide 41 H* (22-30) mmol/L BUN 23 H (7-17) mg/dL Creatinine 0.51 L (0.52-1.04) mg/dL Calcium 7.8 L (8.4-10.2) mg/dL Microbiology - Last 24 Hours (Table) 02/22/18 09:44 Blood Culture - Preliminary Blood No Growth after 120 hours
--- NOTE | 2018-02-27 18:00 | P.PN ---
Subjective Progress Note Date: 02/27/18 Principal diagnosis: Blood per rectum Patient tolerating her diet. No abdominal pain. The top bowel movement this morning with some bright red blood noted with stool. Anusol provided yesterday. Objective - Vital Signs Vital signs: Vital Signs Temp 97.4 F L 02/27/18 15:38 Pulse 93 02/27/18 15:46 Resp 16 02/27/18 15:46 BP 110/67 02/27/18 15:38 Pulse Ox 98 02/27/18 15:38 Intake & Output 02/26/18 02/27/18 02/27/18 18:59 06:59 18:59 Intake Total 360 180 Output Total 200 Balance 360 -200 180 Weight 57.9 kg Intake: Oral 360 180 Output: Urine/Stool Mix 200 Other: Voiding Method Diaper Diaper Diaper Incontinent Incontinent Incontinent # Voids 2 2 # Bowel Movements 1 1 1 - Exam On physical examination, patient appears comfortable in no apparent distress. HEAD: Normocephalic, atraumatic. EYES: No scleral icterus. No conjunctival injection. MOUTH: No lesions, tongue midline. NECK: Trachea midline, no gross abnormalities. CHEST: Decreased air entry in all lung [place]. ABDOMEN: Soft, obese. Bowel sounds are positive. No organomegaly. No guarding or rigidity. EXTREMITIES: No pedal edema. SKIN: No rashes, no jaundice. NEUROLOGIC: Alert and oriented x3. No focal deficits. - Labs CBC & Chem 7: 02/27/18 06:51 02/27/18 06:51 Labs: Abnormal Lab Results - Last 24 Hours (Table) 02/27/18 02/27/18 02/27/18 Range/Units 06:51 06:51 06:51 WBC 12.5 H (3.8-10.6) k/uL MCV 106.2 H (80.0-100.0) fL PT 12.1 H (9.0-12.0) sec INR 1.2 H (<1.2) Sodium 132 L (137-145) mmol/L Chloride 88 L (98-107) mmol/L Carbon Dioxide 41 H* (22-30) mmol/L BUN 23 H (7-17) mg/dL Creatinine 0.51 L (0.52-1.04) mg/dL Calcium 7.8 L (8.4-10.2) mg/dL Microbiology - Last 24 Hours (Table) 02/22/18 09:44 Blood Culture - Preliminary Blood No Growth after 120 hours Assessment and Plan (1) Rectal bleeding Narrative/Plan: Bright red blood per rectum, seen with bowel movements. One episode with stool this morning. Hemoglobin has remained stable at 13.7 today, this likely represents hemorrhoidal bleeding. Anusol nightly provided yesterday. Current Visit: Yes Status: Acute Code(s): K62.5 - HEMORRHAGE OF ANUS AND RECTUM SNOMED Code(s): 85853020 Plan: Supportive care Continue to monitor hemoglobin and transfuse as needed Continue Anusol nightly Okay for anticoagulation as needed per cardiology service No plan for and the scop evaluation at this time, we'll consider further workup if patient has significant drop in hemoglobin or signs or symptoms of GI bleeding persist Thank you for allowing us to participate in the care of this patient we will continue to follow
[2018-02-27] MEDS ORDERED: METOPROLOL TARTRATE 25 MG TAB PO STA (18:14)
[2018-02-27] MEDS: HYDROCORTISONE SUPPOSITORY 25 MG SUPP RECTAL SCH (21:21)
[2018-02-28 07:08] LABS: INR 1.1 (<1.2); Prothrombin Time 11.3 sec (9.0-12.0)
[2018-02-28 07:14] LABS: Blood Urea Nitrogen 23 mg/dL (7-17); Calcium 8.4 mg/dL (8.4-10.2); Chloride 87 mmol/L (98-107); Glucose 106 mg/dL (74-99); Potassium 4.5 mmol/L (3.5-5.1); Sodium 133 mmol/L (137-145)
[2018-02-28 07:21] LABS: Anion Gap 7 mmol/L; Carbon Dioxide 39 mmol/L (22-30)
[2018-02-28] MEDS: ASCORBIC ACID 500 MG TAB PO SCH (08:47)
[2018-02-28] MEDS: CALCIUM CARBONATE 500 MG CHEWABLE PO SCH ×2 (08:48→21:52)
[2018-02-28] MEDS: VIT A,C & E-LUTEIN-MINERALS 1 EACH TAB PO SCH (08:48)
[2018-02-28] MEDS: ATORVASTATIN 20 MG TAB PO SCH (08:48)
[2018-02-28] MEDS: METOPROLOL TARTRATE 25 MG TAB PO SCH (08:48)
[2018-02-28] MEDS: predniSONE 20 MG TAB PO SCH (08:48)
[2018-02-28] MEDS: DIGOXIN 125 MCG TAB PO SCH (08:48)
[2018-02-28] MEDS: AZITHROMYCIN 500 MG TAB PO SCH (08:48)
[2018-02-28] MEDS: NICOTINE 14MG/24HR PATCH TRANSDERM SCH (08:48)
[2018-02-28] MEDS: SYMBICORT 80-4.5 MCG INHALER INHALATION SCH ×2 (08:52→20:19)
[2018-02-28] MEDS: IPRATROPIUM-ALBUTEROL 3 ML NEB INHALATION SCH ×4 (08:52→20:19)
[2018-02-28] MEDS: APIXABAN 2.5 MG TABLET PO SCH ×2 (10:13→21:52)
[2018-02-28] MEDS: FUROSEMIDE 40 MG TAB PO SCH ×2 (10:13→16:15)
[2018-02-28] MEDS ORDERED: METOPROLOL TARTRATE 25 MG TAB PO STA (12:33)
[2018-02-28] MEDS ORDERED: FUROSEMIDE 10 MG/ML 4 ML VIAL IV STA (12:34)
--- NOTE | 2018-02-28 12:37 | P.PN ---
Subjective This is a 77-year-old female is in the hospital with bright red blood in his stool, chronic atrial fibrillation on long-term anticoagulation with Coumadin and supratherapeutic INR. Coumadin has been stopped and INR is stable. She has been seen in evaluation by GI services and noted to have a hemorrhoid. Surgical opinion recommended. Long-term anticoagulation in the form of Eliquis has been resumed as of yesterday. She continues to complain of shortness of breath. She is seen and examined resting comfortably in bed laying flat in no acute distress. Blood pressure 117/62 heart rate 107. Laboratory data reviewed sodium 133, potassium 4.5, creatinine 0.54. Repeat chest x-ray obtained yesterday reveals worsening obesity of the right lung base with the possibility of left-sided effusion and entirely ruled out. GENERAL: Well-appearing, well-nourished and in no acute distress. NECK: Supple without JVD or thyromegaly. LUNGS: Course rhonchi bilaterally, bibasilar rales, no wheezes. Respiration equal and unlabored. HEART: Regular rate and rhythm without murmurs, rubs or gallops. S1 and S2 heard. EXTREMITIES: Normal range of motion, no edema. No clubbing or cyanosis. Peripheral pulses intact. ASSESSMENT Chronic persistent atrial fibrillation with poorly controlled ventricular response on long-term anticoagulation Supratherapeutic INR secondary to Coumadin toxicity, resolved Acute exacerbation of chronic systolic heart failure Lower gastrointestinal bleed Diarrhea Hyperkalemia, resolved PLAN Increase metoprolol to 50 mg twice a day, give additional dose of 25 mg now. Give 1 dose of IV Lasix 40 now. SHAKA inhibitor and Aldactone have been held secondary to hyperkalemia and hypotension. Further recommendations to follow based on clinical course. Follow electrolytes and kidney function in the morning. The above impression and plan of care have been discussed and directed by the signing physician. Mary Kay Paris, nurse practitioner, acting as scribe for signing physician. Objective - Vital Signs Vital signs: Vital Signs Temp 97.6 F 02/28/18 08:00 Pulse 107 H 02/28/18 11:40 Resp 24 02/28/18 11:40 BP 117/62 02/28/18 11:39 Pulse Ox 99 02/28/18 08:00 Intake & Output 02/27/18 02/28/18 02/28/18 18:59 06:59 18:59 Intake Total 180 236 Balance 180 236 Weight 57.9 kg 57.6 kg Intake: Oral 180 236 Other: Voiding Method Diaper Diaper Diaper Incontinent Incontinent Incontinent # Voids 2 1 1 # Bowel Movements 1 - Labs CBC & Chem 7: 02/27/18 06:51 02/28/18 06:01 Labs: Abnormal Lab Results - Last 24 Hours (Table) 02/28/18 Range/Units 06:01 Sodium 133 L (137-145) mmol/L Chloride 87 L (98-107) mmol/L Carbon Dioxide 39 H (22-30) mmol/L BUN 23 H (7-17) mg/dL Glucose 106 H (74-99) mg/dL Microbiology - Last 24 Hours (Table) 02/22/18 09:44 Blood Culture - Final Blood No Growth after 144 hours
--- NOTE | 2018-02-28 13:30 | P.PN ---
Subjective 77-year-old female admitted secondary to lower GI bleed from suprapubic INR INR has come down to 7.1 today. Patient remains in A. fib heart rate is in 90s and 100s no more GI bleed patient is complaining of shortness of breath patient is hyponatremic because of which I'm discontinued and IV Lasix will repeat the chest x-ray make sure her pulmonary edema is better I believe her shortness of breath is secondary to be A. fib and the cardiology will evaluate the patient probably can increase the beta jaleel. Echocardiac exam is pending. 02/24/2018 Patient heart rate is well controlled INR is 2.4 today and patient will be discharged on Eliquis tomorrow patient's SATURATIONS ARE COMING DOWN CHEST X- RAY DID NOT SHOW ANY INCREASED PULMONARY EDEMA GIVE HER A DAY OF LASIX AND THE FAMILY WILL GET A MAHARAJ AND PATIENT WILL BE DISCHARGED TOMORROW. PATIENT DOESN'T HAVE ANY SIGNIFICANT COPD EXACERBATION AT THIS TIME DOES SMOKE EVERY DAY. PATIENT MAY NEED TO BE DISCHARGED TO SUBACUTE REHABILITATION 02/25/2018 Patient has contraction alkalosis and mildly low serum sodium because of hyperlipoidemia hyponatremia IV Lasix will be switched to oral Lasix. Patient is still requiring 3 L of oxygen may have a competent of COPD patient will be started on low-dose of oral steroids. Patient is still tachycardic. Metoprolol dose is being increased today patient will be started on Eliquis. 02/26/2018 Patient had an episode of GI bleed secondary to possible rectal prolapse to the surgery was consulted. An echo was from yesterday was held and no more GI bleed today probably need to cut down the leg was to 2.5 mg twice a day area patient remains bit hyponatremic after starting prednisone her respiratory status improved patient may have mild COPD exacerbation which is making her short of breath patient is saturating 100% today because of which will try and wean her oxygen today. Other issues patient became hyperkalemic patient is on potassium supplementation along with Aldactone and the lisinopril patient unfortunately already received Aldactone and lisinopril today because of which her potassium will be elevated even more tomorrow, I'll order Kayexalate. Patient probably can be discharged to subacute rehabilitation tomorrow 02/27/2018 Patient had a multiple episodes of soft stools today probably secondary to Paxil 8. HE to hold one more that today's dose of Lasix because of her continued hyponatremia. Patient had rectal bleeding today because of which antiplatelet correlation will be discontinued patient is high risk for stroke but because of her multiple episodes of GI bleed are not able to continue that correlation discussed with cardiology try to extract the patient because of her hearing problem patient didn't understand very well. Patient was pretty status is worse patient has rhonchus breath sounds all obtain a chest x-ray depending on the chest x-ray she may or may not need Lasix. Patient will be started on doxycycline I'll increase the dose of prednisone to 40 mg daily patient does have increased wheeze today. 02/28/2018 Patient respiratory status improved but the patient is bit tachycardic was given additional dose of beta jaleel. She and has a rectal prolapse still surgery will be consulted no GI bleed today and the cardiology as well as gastroenterology are agreeable with anti-coagulation patient was resumed on anti -coagulation again today Constitutional: Denied any fatigue denied any fever. Cardio vascular: As mentioned in the interval history Gastrointestinal denied any nausea vomiting Pulmonary: Refer to interval history Neurologic denied any new focal deficits All inpatient medications were reviewed and appropriate changes in these medications as dictated in the interval history and assessment and plan. Objective - Vital Signs Vital signs: Vital Signs Temp 97.6 F 02/28/18 08:00 Pulse 96 02/28/18 13:23 Resp 24 02/28/18 11:40 BP 117/62 02/28/18 11:39 Pulse Ox 99 02/28/18 08:00 Intake & Output 02/27/18 02/28/18 02/28/18 18:59 06:59 18:59 Intake Total 180 236 Balance 180 236 Weight 57.9 kg 57.6 kg Intake: Oral 180 236 Other: Voiding Method Diaper Diaper Diaper Incontinent Incontinent Incontinent # Voids 2 1 1 # Bowel Movements 1 - Exam PHYSICAL EXAMINATION: GENERAL: The patient is alert and oriented x3, not in any acute distress. Well developed, well nourished. HEENT: Pupils are round and equally reacting to light. EOMI. No scleral icterus. No conjunctival pallor. Normocephalic, atraumatic. No pharyngeal erythema. No thyromegaly. CARDIOVASCULAR: S1 and S2 present. No murmurs, rubs, or gallops. Patient has irregularly irregular rhythm unable to clearly appreciate JVD because of atrial fibrillation PULMONARY: Minimal expiratory wheeze on exam rhonchus breath sounds. ABDOMEN: Soft, nontender, nondistended, normoactive bowel sounds. No palpable organomegaly. MUSCULOSKELETAL: No joint swelling or deformity. EXTREMITIES: No cyanosis, clubbing, does have 1+ bilateral pitting pedal edema NEUROLOGICAL: Gross neurological examination did not reveal any focal deficits. SKIN: No rashes. - Labs CBC & Chem 7: 02/27/18 06:51 02/28/18 06:01 Labs: Abnormal Lab Results - Last 24 Hours (Table) 02/28/18 Range/Units 06:01 Sodium 133 L (137-145) mmol/L Chloride 87 L (98-107) mmol/L Carbon Dioxide 39 H (22-30) mmol/L BUN 23 H (7-17) mg/dL Glucose 106 H (74-99) mg/dL Microbiology - Last 24 Hours (Table) 02/22/18 09:44 Blood Culture - Final Blood No Growth after 144 hours Assessment and Plan Plan: -Acute lower GI bleed: She does have hemorrhoids maybe even rectal prolapse and the patient had the be GI bleed today in spite of 2.5 mg of eliquis, which will be discontinued at this time. -Atrial fibrillation with rapid ventricular rate: Presently rate controlled regarding anticoagulation as mentioned above. Patient is off verapamil verapamil was discontinued during this hospital physician because of the poor ejection fraction. -Hyperkalemia secondary to Aldactone, lisinopril and potassium supplementation. Management as mentioned above can you to hold the Aldactone continue with lisinopril. -Worsening infiltrate in the left lower lobe all start her on Rocephin and doxycycline no clear cut evidence of pneumonia. -Possible COPD with acute exacerbation: Improved AND saturations on oral steroids although still wheezing a bit -Congestive heart failure chronic systolic dysfunction dysfunction with mild acute exacerbation secondary to uncontrolled heart rate and atrial fibrillation : Presently on oral Lasix, Aldactone will be held because of hyperkalemia along with holding potassium -Hyponatremia: Remains bit hyponatremic -Hypomagnesemia improved with supplementation
[2018-02-28] MEDS: PANTOPRAZOLE 40 MG TABLET PO SCH (16:15)
[2018-02-28] MEDS: METOPROLOL TARTRATE 50 MG TAB PO SCH (21:52)
[2018-02-28] MEDS: HYDROCORTISONE SUPPOSITORY 25 MG SUPP RECTAL SCH (21:52)
[2018-03-01 05:50] LABS: INR 1.1 (<1.2); Prothrombin Time 11.8 sec (9.0-12.0)
[2018-03-01 05:59] LABS: ALT 40 U/L (9-52); AST 27 U/L (14-36); Albumin 2.4 g/dL (3.5-5.0); Alkaline Phosphatase 41 U/L (38-126); Blood Urea Nitrogen 25 mg/dL (7-17); Chloride 88 mmol/L (98-107); Glucose 102 mg/dL (74-99); Magnesium 1.4 mg/dL (1.6-2.3); Sodium 132 mmol/L (137-145); Total Bilirubin 0.8 mg/dL (0.2-1.3); Total Protein 4.8 g/dL (6.3-8.2)
[2018-03-01 06:05] LABS: Anion Gap 3 mmol/L
[2018-03-01 06:14] LABS: Carbon Dioxide 41 mmol/L (22-30)
[2018-03-01] MEDS: PANTOPRAZOLE 40 MG TABLET PO SCH ×2 (06:34→17:15)
--- NOTE | 2018-03-01 07:09 | XR ---
EXAMINATION TYPE: XR chest 1V DATE OF EXAM: 03/01/2018 COMPARISON: 02/27/2018 HISTORY: Congestive heart failure, shortness of breath TECHNIQUE: Single frontal view of the chest is obtained. FINDINGS: There is persistent obscuration of the left costophrenic angle and left hemidiaphragm in t he retrocardiac airspace. Minimal pulmonary vascular congestion remains. There is similar right infra hilar and right basilar opacity partially obscuring the right hemidiaphragm. Cardiomediastinal silhou ette is enlarged. Osseous structures are grossly intact with generalized osseous demineralization. IMPRESSION: Small left pleural effusion and bibasilar airspace disease that may relate to atelectasi s, confluent pulmonary edema or less likely pneumonia. Mild pulmonary vascular congestion may relate to underlying congestive heart failure and is similar to the prior.
[2018-03-01] MEDS: SYMBICORT 80-4.5 MCG INHALER INHALATION SCH ×2 (07:45→20:45)
[2018-03-01] MEDS: IPRATROPIUM-ALBUTEROL 3 ML NEB INHALATION SCH ×4 (07:45→20:45)
--- NOTE | 2018-03-01 08:23 | P.GSCN ---
History of Present Illness Consult date: 03/01/18 History of present illness: 77-year-old female admitted 02/22/2018 with shortness of breath possible exacerbation of COPD, CHF exacerbation, and rectal bleeding. She was noted to have a supratherapeutic INR of 8.6 on admission. She also was noted to have a fecal occult blood test that was negative. During her admission, her anticoagulation has been changed from Coumadin to Eliquis. There was concern of rectal prolapse causing rectal bleeding and surgeries consult. The patient has continued to have bowel function throughout her admission and does admit to having blood in some of her bowel movements and some red blood while wiping. There have been no evidence of blood clots within her bowel movements. She is unsure of when her last colonoscopy was. She denies any nausea vomiting. She is tolerating a diet. She has no additional complaints at this time. Denies any fevers, chills, chest pain or shortness of breath. Review of Systems All systems: negative Past Medical History Past Medical History: Atrial Fibrillation, Heart Failure, GERD/Reflux, Hyperlipidemia, Hypertension, Osteoarthritis (OA) Additional Past Medical History / Comment(s): chronic back pain, emphysema,pt stated she had prevnar 13 not sure of exact date,scientific technical writer unable to verify date at time of admit. History of Any Multi-Drug Resistant Organisms: None Reported Past Surgical History: Back Surgery, Hysterectomy Additional Past Surgical History / Comment(s): cataracts Past Anesthesia/Blood Transfusion Reactions: No Reported Reaction Smoking Status: Former smoker - Past Family History Mother Family Medical History: Cancer Additional Family Medical History / Comment(s): esophageal CA Father Family Medical History: Myocardial Infarction ([place]) Medications and Allergies Home Medications Medication Instructions Recorded Confirmed Type Digoxin [Digitek] 125 mcg PO DAILY 12/07/16 02/22/18 History Ergocalciferol [Vitamin D2 50,000 unit PO Q30D 12/07/16 02/22/18 History (ESSENCE)] Potassium Chloride ER [K-Dur 20] 20 meq PO DAILY 12/07/16 02/22/18 History Vit C/E/Zn/Coppr/Lutein/Zeaxan 1 cap PO DAILY 12/07/16 02/22/18 History [Preservision Areds 2 Softgel] Atorvastatin [Lipitor] 20 mg PO DAILY tab 12/15/16 02/22/18 Rx Furosemide [Lasix] 20 mg PO DAILY tab 12/15/16 02/22/18 Rx Pantoprazole [Protonix] 40 mg PO AC-BID tablet.dr 12/15/16 02/22/18 Rx Verapamil Sr [Isoptin Sr] 120 mg PO DAILY tablet.er 12/15/16 02/22/18 Rx Ascorbic Acid [Vitamin C] 500 mg PO DAILY 02/22/18 02/22/18 History Calcium Carbonate [Calcium] 600 mg PO BID 02/22/18 02/22/18 History Fluticasone/Salmeterol [Advair 1 puff INHALATION RT-BID 02/22/18 02/22/18 History 250-50 Diskus] Metoprolol Tartrate [Lopressor] 25 mg PO Q12H 02/22/18 02/22/18 History Warfarin Sodium [Coumadin] 4 mg PO SUMOTUWETH@1800 02/22/18 02/22/18 History Warfarin [Coumadin] 5 mg PO FRSA 02/22/18 02/22/18 History Allergies Allergy/AdvReac Type Severity Reaction Status Date / Time Sulfa (Sulfonamide Allergy Rash/Hives Verified 02/22/18 10:21 Antibiotics) Surgical - Exam Osteopathic Statement: *. No significant issues noted on an osteopathic structural exam other than those noted in the History and Physical/Consult. Vital Signs Temp Pulse Resp BP Pulse Ox 98.3 F 119 H 20 110/68 88 L 02/22/18 09:30 02/22/18 09:30 02/22/18 09:30 02/22/18 09:30 02/22/18 09:30 - General no distress - Eyes normal ocular movement - ENT decreased hearing - Neck trachea midline - Respiratory No difficulty with respiration - Abdomen Soft, nontender, nondistended, no rebound, no guarding - Rectum Nonthrombosed external hemorrhoids are noted, no gross blood, normal rectal tone , rectal prolapse with or without Valsalva Results - Labs 02/27/18 06:51 03/01/18 05:26 Abnormal Lab Results - Last 24 Hours (Table) 03/01/18 Range/Units 05:26 Sodium 132 L (137-145) mmol/L Chloride 88 L (98-107) mmol/L Carbon Dioxide 41 H* (22-30) mmol/L BUN 25 H (7-17) mg/dL Creatinine 0.43 L (0.52-1.04) mg/dL Glucose 102 H (74-99) mg/dL Calcium 8.0 L (8.4-10.2) mg/dL Magnesium 1.4 L (1.6-2.3) mg/dL Total Protein 4.8 L (6.3-8.2) g/dL Albumin 2.4 L (3.5-5.0) g/dL Microbiology - Last 24 Hours (Table) 02/22/18 09:44 Blood Culture - Final Blood No Growth after 144 hours Diabetes panel 03/01/18 Range/Units 05:26 Sodium 132 L (137-145) mmol/L Potassium 4.0 (3.5-5.1) mmol/L Chloride 88 L (98-107) mmol/L Carbon Dioxide 41 H* (22-30) mmol/L BUN 25 H (7-17) mg/dL Creatinine 0.43 L (0.52-1.04) mg/dL Glucose 102 H (74-99) mg/dL Calcium 8.0 L (8.4-10.2) mg/dL AST 27 (14-36) U/L ALT 40 (9-52) U/L Alkaline Phosphatase 41 (38-126) U/L Total Protein 4.8 L (6.3-8.2) g/dL Albumin 2.4 L (3.5-5.0) g/dL Calcium panel 03/01/18 Range/Units 05:26 Calcium 8.0 L (8.4-10.2) mg/dL Albumin 2.4 L (3.5-5.0) g/dL Pituitary panel 03/01/18 Range/Units 05:26 Sodium 132 L (137-145) mmol/L Potassium 4.0 (3.5-5.1) mmol/L Chloride 88 L (98-107) mmol/L Carbon Dioxide 41 H* (22-30) mmol/L BUN 25 H (7-17) mg/dL Creatinine 0.43 L (0.52-1.04) mg/dL Glucose 102 H (74-99) mg/dL Calcium 8.0 L (8.4-10.2) mg/dL Adrenal panel 03/01/18 Range/Units 05:26 Sodium 132 L (137-145) mmol/L Potassium 4.0 (3.5-5.1) mmol/L Chloride 88 L (98-107) mmol/L Carbon Dioxide 41 H* (22-30) mmol/L BUN 25 H (7-17) mg/dL Creatinine 0.43 L (0.52-1.04) mg/dL Glucose 102 H (74-99) mg/dL Calcium 8.0 L (8.4-10.2) mg/dL Total Bilirubin 0.8 (0.2-1.3) mg/dL AST 27 (14-36) U/L ALT 40 (9-52) U/L Alkaline Phosphatase 41 (38-126) U/L Total Protein 4.8 L (6.3-8.2) g/dL Albumin 2.4 L (3.5-5.0) g/dL Assessment and Plan (1) Rectal bleeding Narrative/Plan: 77-year-old female with rectal bleeding with bowel movements - Blood in the stool is likely secondary to irritation of hemorrhoids and previous supratherapeutic INR - I do recommend local hemorrhoidal care with Anusol suppository and stool softeners - There is no significant evidence of rectal prolapse - GI recommendations are appreciated, any endoscopy recommendations will be made by GI - No plan for any acute surgical intervention Thank you for this consultation, I look forward in providing in this patient's care Current Visit: Yes Status: Acute Code(s): K62.5 - HEMORRHAGE OF ANUS AND RECTUM SNOMED Code(s): 65983400
[2018-03-01] MEDS: METOPROLOL TARTRATE 50 MG TAB PO SCH ×2 (09:04→21:35)
[2018-03-01] MEDS: FUROSEMIDE 40 MG TAB PO SCH ×2 (09:04→17:18)
[2018-03-01] MEDS: CALCIUM CARBONATE 500 MG CHEWABLE PO SCH ×2 (09:05→21:34)
[2018-03-01] MEDS: AZITHROMYCIN 500 MG TAB PO SCH (09:05)
[2018-03-01] MEDS: predniSONE 20 MG TAB PO SCH (09:05)
[2018-03-01] MEDS: NICOTINE 14MG/24HR PATCH TRANSDERM SCH (09:05)
[2018-03-01] MEDS: APIXABAN 2.5 MG TABLET PO SCH ×2 (09:05→21:34)
[2018-03-01] MEDS: VIT A,C & E-LUTEIN-MINERALS 1 EACH TAB PO SCH (09:05)
[2018-03-01] MEDS: ASCORBIC ACID 500 MG TAB PO SCH (09:05)
[2018-03-01] MEDS: ATORVASTATIN 20 MG TAB PO SCH (09:05)
[2018-03-01] MEDS: DIGOXIN 125 MCG TAB PO SCH (09:06)
[2018-03-01] MEDS: MAGNESIUM SULFATE-D5W PMX 1 GM in DEXTROSE/WATER 1 100ML.BAG IVPB SCH ×2 (10:55→14:59)
--- NOTE | 2018-03-01 11:33 | P.PN ---
Subjective Progress Note Date: 03/01/18 This is a 68-year-old female who presented to the hospital with GI bleed, she was noted on presentation here to have significantly elevated INR, Coumadin had been placed on hold. Patient does have history of chronic atrial fibrillation and was on Coumadin as an outpatient. Her INR this morning is 2.4. We did look into coverage with [employer] which will cost her approximately $ 39 a month. Discussions are also being made with the daughter regarding possible ECF placement. This morning patient feels well, denies any shortness of breath, no chest discomfort, no palpitations. Blood pressure 96/60 with a heart rate in the 60s. 94% on 3 L. Pro time 23.5 with an INR 2.4. Sodium 136 , potassium 4.2, BUN 20, creatinine 0.6. Weight is down 5 kg today, patient continues to be on IV diuretics. 02/25/2018 Patient seen and examined this morning, she does state she is feeling overall better today. Started on Eliquis today. Blood pressure 108/70, heart rate in the 60s, 93% on 3 L of oxygen. Sodium 132, potassium 4.3, BUN 17 and creatinine 0.4. Currently on oral diuretics. 03/01/2018 Patient seen and examined this morning, blood pressure 100/60, heart rate in the 80s, BUN 25, creatinine 0.4, magnesium level I.4. Patient states she continues to have diarrhea stools, overall her breathing is stable. She did have a repeat chest x-ray this morning which showed a small left pleural effusion and bibasilar air space disease which may relate atelectasis. Confluent pulmonary edema or less likely pneumonia. She is currently on oral Lasix, 40 mg twice a day. Objective - Vital Signs Vital signs: Vital Signs Temp 97.8 F 03/01/18 09:14 Pulse 84 03/01/18 11:24 Resp 18 03/01/18 09:14 BP 118/57 03/01/18 09:14 Pulse Ox 96 03/01/18 09:14 Intake & Output 02/28/18 03/01/18 03/01/18 18:59 06:59 18:59 Intake Total 516 120 Output Total 2500 2400 Weight 57.5 kg Intake: Oral 516 120 Output: Urine 2500 2400 Other: Voiding Method Diaper Diaper Diaper Incontinent Incontinent Incontinent # Voids 1 1 # Bowel Movements 1 - Exam PHYSICAL EXAMINATION: GENERAL: This is a 77-year-old female in no acute distress at the time of my examination HEENT: Head is atraumatic, normocephalic. Pupils equal, round. Sclera anicteric. Conjunctiva are clear. Mucous membranes of the mouth are moist. Neck is supple. There is no elevated jugular venous pressure. No carotid bruit is heard. HEART EXAMINATION: Heart S1 and S2 irregularly irregular systolic murmur is heard. CHEST EXAMINATION: Lungs reveal diminished air entry bilaterally, few scattered coarse rhonchi and rales are heard. ABDOMEN: Soft, nontender. Bowel sounds are heard. No organomegaly noted. EXTREMITIES: 2+ peripheral pulses with no evidence of peripheral edema and no calf tenderness noted. NEUROLOGIC patient is awake, alert and oriented 2 . . - Labs CBC & Chem 7: 02/27/18 06:51 03/01/18 05:26 Labs: Abnormal Lab Results - Last 24 Hours (Table) 03/01/18 Range/Units 05:26 Sodium 132 L (137-145) mmol/L Chloride 88 L (98-107) mmol/L Carbon Dioxide 41 H* (22-30) mmol/L BUN 25 H (7-17) mg/dL Creatinine 0.43 L (0.52-1.04) mg/dL Glucose 102 H (74-99) mg/dL Calcium 8.0 L (8.4-10.2) mg/dL Magnesium 1.4 L (1.6-2.3) mg/dL Total Protein 4.8 L (6.3-8.2) g/dL Albumin 2.4 L (3.5-5.0) g/dL Microbiology - Last 24 Hours (Table) 02/22/18 09:44 Blood Culture - Final Blood No Growth after 144 hours Assessment and Plan Plan: Assessment and plan #1 lower GI bleed, likely secondary to hemorrhoids #2 coagulopathy, INR 8.6 on admission, patient now is on Eliquis. #3 chronic persistent atrial fibrillation #4 hypertension #5 COPD #6 systolic congestive heart failure acute on chronic Plan From cardiology's perspective, we'll recommend to continue the patient on her current medications. Atrial fibrillation is under much better control. Continue current dose of oral diuretics. DNP note has been reviewed, I agree with a documented findings and plan of care. Patient was seen and examined.
--- NOTE | 2018-03-01 13:49 | P.PN ---
Subjective 77-year-old female admitted secondary to lower GI bleed from suprapubic INR INR has come down to 7.1 today. Patient remains in A. fib heart rate is in 90s and 100s no more GI bleed patient is complaining of shortness of breath patient is hyponatremic because of which I'm discontinued and IV Lasix will repeat the chest x-ray make sure her pulmonary edema is better I believe her shortness of breath is secondary to be A. fib and the cardiology will evaluate the patient probably can increase the beta jaleel. Echocardiac exam is pending. 02/24/2018 Patient heart rate is well controlled INR is 2.4 today and patient will be discharged on Eliquis tomorrow patient's SATURATIONS ARE COMING DOWN CHEST X- RAY DID NOT SHOW ANY INCREASED PULMONARY EDEMA GIVE HER A DAY OF LASIX AND THE FAMILY WILL GET A MAHARAJ AND PATIENT WILL BE DISCHARGED TOMORROW. PATIENT DOESN'T HAVE ANY SIGNIFICANT COPD EXACERBATION AT THIS TIME DOES SMOKE EVERY DAY. PATIENT MAY NEED TO BE DISCHARGED TO SUBACUTE REHABILITATION 02/25/2018 Patient has contraction alkalosis and mildly low serum sodium because of hyperlipoidemia hyponatremia IV Lasix will be switched to oral Lasix. Patient is still requiring 3 L of oxygen may have a competent of COPD patient will be started on low-dose of oral steroids. Patient is still tachycardic. Metoprolol dose is being increased today patient will be started on Eliquis. 02/26/2018 Patient had an episode of GI bleed secondary to possible rectal prolapse to the surgery was consulted. An echo was from yesterday was held and no more GI bleed today probably need to cut down the leg was to 2.5 mg twice a day area patient remains bit hyponatremic after starting prednisone her respiratory status improved patient may have mild COPD exacerbation which is making her short of breath patient is saturating 100% today because of which will try and wean her oxygen today. Other issues patient became hyperkalemic patient is on potassium supplementation along with Aldactone and the lisinopril patient unfortunately already received Aldactone and lisinopril today because of which her potassium will be elevated even more tomorrow, I'll order Kayexalate. Patient probably can be discharged to subacute rehabilitation tomorrow 02/27/2018 Patient had a multiple episodes of soft stools today probably secondary to Paxil 8. HE to hold one more that today's dose of Lasix because of her continued hyponatremia. Patient had rectal bleeding today because of which antiplatelet correlation will be discontinued patient is high risk for stroke but because of her multiple episodes of GI bleed are not able to continue that correlation discussed with cardiology try to extract the patient because of her hearing problem patient didn't understand very well. Patient was pretty status is worse patient has rhonchus breath sounds all obtain a chest x-ray depending on the chest x-ray she may or may not need Lasix. Patient will be started on doxycycline I'll increase the dose of prednisone to 40 mg daily patient does have increased wheeze today. 02/28/2018 Patient respiratory status improved but the patient is bit tachycardic was given additional dose of beta jaleel. She and has a rectal prolapse still surgery will be consulted no GI bleed today and the cardiology as well as gastroenterology are agreeable with anti-coagulation patient was resumed on anti -coagulation again today 03/01/2018 Patient is overall improved still has significant rhonchus breath sounds comparing of epigastric abdominal discomfort burning sensation doesn't feel well today had 1 episode of diarrhea. I'll monitor her 1 more day and patient remains hyponatremic can use to have left-sided pleural effusion mostly secondary to pulmonary edema and obtain a repeat BMP I'm unable to assess her JVD Constitutional: Denied any fatigue denied any fever. Cardio vascular: As mentioned in the interval history Gastrointestinal denied any nausea vomiting Pulmonary: Refer to interval history Neurologic denied any new focal deficits All inpatient medications were reviewed and appropriate changes in these medications as dictated in the interval history and assessment and plan. Objective - Vital Signs Vital signs: Vital Signs Temp 98.1 F 03/01/18 12:03 Pulse 74 03/01/18 12:03 Resp 18 03/01/18 12:03 BP 101/56 03/01/18 12:03 Pulse Ox 93 L 03/01/18 12:03 Intake & Output 02/28/18 03/01/18 03/01/18 18:59 06:59 18:59 Intake Total 516 120 Output Total 2500 2400 Balance -1983 Weight 57.5 kg Intake: Oral 516 120 Output: Urine 2500 2400 Other: Voiding Method Diaper Diaper Diaper Incontinent Incontinent Incontinent # Voids 1 1 # Bowel Movements 1 - Exam PHYSICAL EXAMINATION: GENERAL: The patient is alert and oriented x3, not in any acute distress. Well developed, well nourished. HEENT: Pupils are round and equally reacting to light. EOMI. No scleral icterus. No conjunctival pallor. Normocephalic, atraumatic. No pharyngeal erythema. No thyromegaly. CARDIOVASCULAR: S1 and S2 present. No murmurs, rubs, or gallops. Patient has irregularly irregular rhythm unable to clearly appreciate JVD because of atrial fibrillation PULMONARY: Minimal expiratory wheeze on exam rhonchus breath sounds. ABDOMEN: Soft, nontender, nondistended, normoactive bowel sounds. No palpable organomegaly. MUSCULOSKELETAL: No joint swelling or deformity. EXTREMITIES: No cyanosis, clubbing, does have 1+ bilateral pitting pedal edema NEUROLOGICAL: Gross neurological examination did not reveal any focal deficits. SKIN: No rashes. - Labs CBC & Chem 7: 02/27/18 06:51 03/01/18 05:26 Labs: Abnormal Lab Results - Last 24 Hours (Table) 03/01/18 Range/Units 05:26 Sodium 132 L (137-145) mmol/L Chloride 88 L (98-107) mmol/L Carbon Dioxide 41 H* (22-30) mmol/L BUN 25 H (7-17) mg/dL Creatinine 0.43 L (0.52-1.04) mg/dL Glucose 102 H (74-99) mg/dL Calcium 8.0 L (8.4-10.2) mg/dL Magnesium 1.4 L (1.6-2.3) mg/dL Total Protein 4.8 L (6.3-8.2) g/dL Albumin 2.4 L (3.5-5.0) g/dL Microbiology - Last 24 Hours (Table) 02/22/18 09:44 Blood Culture - Final Blood No Growth after 144 hours Assessment and Plan Plan: -Acute lower GI bleed: She does have hemorrhoids maybe even rectal prolapse and the patient had the be GI bleed today in spite of 2.5 mg of eliquis, which will be discontinued at this time. No more GI bleed -Atrial fibrillation with rapid ventricular rate: Presently rate controlled regarding anticoagulation as mentioned above. Patient is off verapamil verapamil was discontinued during this hospital physician because of the poor ejection fraction. -Hyperkalemia secondary to Aldactone, lisinopril and potassium supplementation. Patient was started back on lisinopril AND is being held hyperkalemia improved patient is complaining of for loose stools -Rectal prolapse -Worsening infiltrate in the left lower lobe is no clear evidence of pneumonia considering Non-improvement in his respiratory status I started her on Rocephin and azithromycin -Possible COPD with acute exacerbation: The normal steroids and inhalational treatments at this time -Congestive heart failure chronic systolic dysfunction dysfunction with mild acute exacerbation secondary to uncontrolled heart rate and atrial fibrillation. Obtain BMP as I cannot clearly assess JVD patient remains hyponatremic doesn't have any pedal edema -Hyponatremia: Remains bit hyponatremic Code status DO NOT RESUSCITATE Her overall prognosis is extremely poor patient will be discharged to subacute rehabilitation I wrote prognosis is poor because of her age, COPD congestive heart failure and heart to control atrial fibrillation patient is definitely high risk for readmission. Same thing a prescription was discussed with the family
[2018-03-01] MEDS: SIMETHICONE 80 MG CHEWABLE PO SCH ×2 (17:16→17:20)
--- NOTE | 2018-03-01 19:24 | P.PN ---
Subjective Progress Note Date: 03/01/18 Principal diagnosis: Blood per rectum Patient tolerating her diet. No abdominal pain. Patient had reported loose bowel movement after receiving therapy with Kayexalate. No more further blood per rectum. Objective - Vital Signs Vital signs: Vital Signs Temp 97.8 F 03/01/18 16:37 Pulse 82 03/01/18 16:37 Resp 20 03/01/18 16:37 BP 105/59 03/01/18 16:37 Pulse Ox 90 L 03/01/18 16:37 Intake & Output 03/01/18 03/01/18 03/02/18 06:59 18:59 06:59 Intake Total 360 Output Total 4400 Balance -4040 Weight 57.5 kg Intake: Oral 360 Output: Urine 4400 Other: Voiding Method Diaper Diaper Incontinent Incontinent # Voids 1 # Bowel Movements 1 - Exam On physical examination, patient appears comfortable in no apparent distress. HEAD: Normocephalic, atraumatic. EYES: No scleral icterus. No conjunctival injection. MOUTH: No lesions, tongue midline. NECK: Trachea midline, no gross abnormalities. CHEST: Decreased air entry in all lung [place]. ABDOMEN: Soft, obese. Bowel sounds are positive. No organomegaly. No guarding or rigidity. EXTREMITIES: No pedal edema. SKIN: No rashes, no jaundice. NEUROLOGIC: Alert and oriented x3. No focal deficits. - Labs CBC & Chem 7: 02/27/18 06:51 03/01/18 05:26 Labs: Abnormal Lab Results - Last 24 Hours (Table) 03/01/18 Range/Units 05:26 Sodium 132 L (137-145) mmol/L Chloride 88 L (98-107) mmol/L Carbon Dioxide 41 H* (22-30) mmol/L BUN 25 H (7-17) mg/dL Creatinine 0.43 L (0.52-1.04) mg/dL Glucose 102 H (74-99) mg/dL Calcium 8.0 L (8.4-10.2) mg/dL Magnesium 1.4 L (1.6-2.3) mg/dL Total Protein 4.8 L (6.3-8.2) g/dL Albumin 2.4 L (3.5-5.0) g/dL Assessment and Plan (1) Rectal bleeding Narrative/Plan: Bright red blood per rectum, seen with bowel movements. One episode of loose stool. Hemoglobin has remained stable at 13.7 and stable, this likely represents hemorrhoidal bleeding. Anusol nightly provided yesterday. Current Visit: Yes Status: Acute Code(s): K62.5 - HEMORRHAGE OF ANUS AND RECTUM SNOMED Code(s): 97807092 Plan: Supportive care Continue to monitor hemoglobin and transfuse as needed Continue Anusol nightly Okay for anticoagulation as needed per cardiology service No plan for and the scop evaluation at this time, we'll consider further workup if patient has significant drop in hemoglobin or signs or symptoms of GI bleeding persist Thank you for allowing us to participate in the care of this patient, the GI service will sign off please call us back with any questions or concerns
[2018-03-01] MEDS: HYDROCORTISONE SUPPOSITORY 25 MG SUPP RECTAL SCH (21:35)
[2018-03-02] MEDS: PANTOPRAZOLE 40 MG TABLET PO SCH ×2 (06:33→17:03)
[2018-03-02] MEDS: SIMETHICONE 80 MG CHEWABLE PO SCH ×3 (06:33→17:03)
[2018-03-02 06:56] LABS: INR 1.1 (<1.2); Prothrombin Time 11.6 sec (9.0-12.0)
[2018-03-02] MEDS: CALCIUM CARBONATE 500 MG CHEWABLE PO SCH ×2 (08:33→20:57)
[2018-03-02] MEDS: NICOTINE 14MG/24HR PATCH TRANSDERM SCH (08:33)
[2018-03-02] MEDS: predniSONE 20 MG TAB PO SCH (08:34)
[2018-03-02] MEDS: METOPROLOL TARTRATE 50 MG TAB PO SCH ×2 (08:34→20:54)
[2018-03-02] MEDS: ASCORBIC ACID 500 MG TAB PO SCH (08:34)
[2018-03-02] MEDS: DIGOXIN 125 MCG TAB PO SCH (08:34)
[2018-03-02] MEDS: AZITHROMYCIN 500 MG TAB PO SCH (08:34)
[2018-03-02] MEDS: APIXABAN 2.5 MG TABLET PO SCH ×2 (08:34→20:56)
[2018-03-02] MEDS: FUROSEMIDE 40 MG TAB PO SCH ×2 (08:34→15:53)
[2018-03-02] MEDS: ATORVASTATIN 20 MG TAB PO SCH (08:34)
[2018-03-02] MEDS: IPRATROPIUM-ALBUTEROL 3 ML NEB INHALATION SCH ×4 (08:46→21:11)
[2018-03-02] MEDS: SYMBICORT 80-4.5 MCG INHALER INHALATION SCH ×2 (08:46→21:11)
[2018-03-02 09:26] LABS: Blood Urea Nitrogen 26 mg/dL (7-17); Chloride 89 mmol/L (98-107); Glucose 75 mg/dL (74-99); Magnesium 1.7 mg/dL (1.6-2.3); Potassium 4.2 mmol/L (3.5-5.1); Sodium 134 mmol/L (137-145)
[2018-03-02 09:34] LABS: Anion Gap 1 mmol/L
[2018-03-02 09:36] LABS: Carbon Dioxide 44 mmol/L (22-30)
[2018-03-02 10:25] VITALS: BMI 22.2
--- NOTE | 2018-03-02 11:21 | P.PN ---
Subjective Progress Note Date: 03/02/18 This is a 68-year-old female who presented to the hospital with GI bleed, she was noted on presentation here to have significantly elevated INR, Coumadin had been placed on hold. Patient does have history of chronic atrial fibrillation and was on Coumadin as an outpatient. Her INR this morning is 2.4. We did look into coverage with [employer] which will cost her approximately $ 39 a month. Discussions are also being made with the daughter regarding possible ECF placement. This morning patient feels well, denies any shortness of breath, no chest discomfort, no palpitations. Blood pressure 96/60 with a heart rate in the 60s. 94% on 3 L. Pro time 23.5 with an INR 2.4. Sodium 136 , potassium 4.2, BUN 20, creatinine 0.6. Weight is down 5 kg today, patient continues to be on IV diuretics. 02/25/2018 Patient seen and examined this morning, she does state she is feeling overall better today. Started on Eliquis today. Blood pressure 108/70, heart rate in the 60s, 93% on 3 L of oxygen. Sodium 132, potassium 4.3, BUN 17 and creatinine 0.4. Currently on oral diuretics. 03/01/2018 Patient seen and examined this morning, blood pressure 100/60, heart rate in the 80s, BUN 25, creatinine 0.4, magnesium level I.4. Patient states she continues to have diarrhea stools, overall her breathing is stable. She did have a repeat chest x-ray this morning which showed a small left pleural effusion and bibasilar air space disease which may relate atelectasis. Confluent pulmonary edema or less likely pneumonia. She is currently on oral Lasix, 40 mg twice a day. 03/02/2018 Patient seen and examined this morning, hemodynamically stable. Sodium 134, potassium 4.2, BUN 26, creatinine 0.4. Magnesium 1.7 today. Objective - Vital Signs Vital signs: Vital Signs Temp 98.3 F 03/02/18 08:00 Pulse 74 03/02/18 08:55 Resp 22 03/02/18 08:00 BP 127/61 03/02/18 08:00 Pulse Ox 93 L 03/02/18 08:00 Intake & Output 03/01/18 03/02/18 03/02/18 18:59 06:59 18:59 Intake Total 360 260 400 Output Total 4400 1000 Balance -4040 740 400 Weight 57 kg 57 kg Intake: IV 20 09 20 Oral 360 240 400 Output: Urine 4400 1000 Other: Voiding Method Diaper Diaper Diaper Incontinent Incontinent Incontinent # Voids 2 # Bowel Movements 1 - Exam PHYSICAL EXAMINATION: GENERAL: This is a 77-year-old female in no acute distress at the time of my examination HEENT: Head is atraumatic, normocephalic. Pupils equal, round. Sclera anicteric. Conjunctiva are clear. Mucous membranes of the mouth are moist. Neck is supple. There is no elevated jugular venous pressure. No carotid bruit is heard. HEART EXAMINATION: Heart S1 and S2 irregularly irregular systolic murmur is heard. CHEST EXAMINATION: Lungs reveal diminished air entry bilaterally, few scattered coarse rhonchi and rales are heard. ABDOMEN: Soft, nontender. Bowel sounds are heard. No organomegaly noted. EXTREMITIES: 2+ peripheral pulses with no evidence of peripheral edema and no calf tenderness noted. NEUROLOGIC patient is awake, alert and oriented 2 . . - Labs CBC & Chem 7: 02/27/18 06:51 03/02/18 06:13 Labs: Abnormal Lab Results - Last 24 Hours (Table) 03/02/18 Range/Units 06:13 Sodium 134 L (137-145) mmol/L Chloride 89 L (98-107) mmol/L Carbon Dioxide 44 H* (22-30) mmol/L BUN 26 H (7-17) mg/dL Creatinine 0.49 L (0.52-1.04) mg/dL Calcium 8.0 L (8.4-10.2) mg/dL Assessment and Plan Plan: Assessment and plan #1 lower GI bleed, likely secondary to hemorrhoids #2 coagulopathy, INR 8.6 on admission, patient now is on Eliquis. #3 chronic persistent atrial fibrillation #4 hypertension #5 COPD #6 systolic congestive heart failure acute on chronic Plan From cardiology's perspective, we'll recommend to continue the patient on her current medications. Atrial fibrillation is under much better control. Continue current dose of oral diuretics. DNP note has been reviewed, I agree with a documented findings and plan of care. Patient was seen and examined.
[2018-03-02] MEDS: VIT A,C & E-LUTEIN-MINERALS 1 EACH TAB PO SCH (12:14)
--- NOTE | 2018-03-02 13:40 | P.PN ---
Subjective Progress Note Date: 03/02/18 Patient seen and examined at bedside. States she had a large bowel movement today. No blood in the stool, however there was some blood when wiping. Otherwise no complaints. Objective - Vital Signs Vital signs: Vital Signs Temp 98.3 F 03/02/18 11:29 Pulse 74 03/02/18 13:01 Resp 20 03/02/18 11:29 BP 107/75 03/02/18 11:29 Pulse Ox 97 03/02/18 11:29 Intake & Output 03/01/18 03/02/18 03/02/18 18:59 06:59 18:59 Intake Total 360 260 470 Output Total 4400 1000 500 Balance -4040 -740 -30 Weight 57 kg 57 kg Intake: IV 20 20 09 20 20 Intake, IV Titration 50 Amount cefTRIAXone 1,000 mg In 50 Sodium Chloride 0.9% 50 ml @ 100 mls/hr IVPB Q24HR [facility] Rx#:[id number] Oral 360 240 400 Output: Urine 4400 1000 500 Other: Voiding Method Diaper Diaper Diaper Incontinent Incontinent Incontinent # Voids 2 # Bowel Movements 1 - Constitutional General appearance: Present: cooperative, no acute distress - Respiratory Details: No difficulty with respiration - Gastrointestinal Gastrointestinal Comment(s): Soft, nontender, nondistended, no rebound, no guarding - Musculoskeletal Musculoskeletal: Present: generalized weakness - Labs CBC & Chem 7: 02/27/18 06:51 03/02/18 06:13 Labs: Abnormal Lab Results - Last 24 Hours (Table) 03/02/18 Range/Units 06:13 Sodium 134 L (137-145) mmol/L Chloride 89 L (98-107) mmol/L Carbon Dioxide 44 H* (22-30) mmol/L BUN 26 H (7-17) mg/dL Creatinine 0.49 L (0.52-1.04) mg/dL Calcium 8.0 L (8.4-10.2) mg/dL Assessment and Plan (1) Rectal bleeding Narrative/Plan: 77-year-old female with rectal bleeding with bowel movements - Bleeding has improved, likely secondary to hemorrhoids - No evidence of rectal prolapse at this time - Continue bowel regimen - Continue GI recommendations for endoscopy Current Visit: Yes Status: Acute Code(s): K62.5 - HEMORRHAGE OF ANUS AND RECTUM SNOMED Code(s): 32626663
[2018-03-02] MEDS: HYDROCORTISONE SUPPOSITORY 25 MG SUPP RECTAL SCH (20:53)
--- NOTE | 2018-03-02 21:03 | PN ---
PROGRESS NOTE DATE OF SERVICE: 03/02/2018 This 77-year-old woman who was admitted with acute lower GI bleed also had some hematemesis and rectal prolapse. The patient had GI bleeding in spite of small dose of Eliquis, which has been discontinued. The patient is followed by Surgery and Gastroenterology at this time. Surgery, Dr. Lee, has recommended the current regimen and GI, Dr. Miguel, has recommended to continue the current medications. The hemoglobin is 13.7 at this time. PAST MEDICAL HISTORY: Reviewed. REVIEW OF SYSTEMS: CARDIOVASCULAR SYSTEM: No angina, palpitations. RESPIRATORY SYSTEM: As mentioned earlier. GI: As mentioned earlier. NERVOUS SYSTEM: No numbness, weakness.. CURRENT MEDICATIONS: Reviewed. They include: 1. DuoNeb q.i.d. and p.r.n. 2. Eliquis 2.5 mg b.i.d. 3. Vitamin C 500 mg daily. 4. Lipitor 20 mg. 5. Zithromax 500 mg. 6. Symbicort 80/4.5 two puffs b.i.d. 7. Tums 500 mg. 8. Rocephin 1 gram daily. 9. Lanoxin 120 mcg daily. 10.Vitamin D2 50,000 q.30. 11.Lasix 40 mg p.o. b.i.d. 12.Anusol-HC 25 at bedtime. 13.Lopressor 50 mg p.o. b.i.d. 14.Magnesium protocol. 15.Habitrol 14. 16.Protonix 40 mg b.i.d. 17.Mylicon. PHYSICAL EXAMINATION: Patient is alert, oriented x3. The pulse is 56, blood pressure 97/53, respiration 20, temperature 98.1, pulse ox 95% on 2 L. HEENT: Conjunctivae normal. Oral mucosa moist. NECK: No jugular venous distention. No carotid bruit. No lymph node enlargement. CARDIOVASCULAR SYSTEM: S1, S2 muffled. RESPIRATORY SYSTEM: Breath sounds diminished at the bases. A few scattered rhonchi and crackles. ABDOMEN: Soft, non-tender. LEGS: No edema. No swelling. NERVOUS SYSTEM: No focal deficit. LABS: Sodium 134, potassium 4.2. Other labs are noted. ASSESSMENT: 1. Acute lower gastrointestinal bleed, possibly hemorrhoids. 2. Atrial fibrillation with a rapid ventricular rate, present on admission. 3. Hyperkalemia secondary to Aldactone, lisinopril, potassium supplementation. 4. History of rectal prolapse. 5. Worsening infiltrate in the left lower lobe, possibly pneumonia; on empiric antibiotic treatment. 6. Possible chronic obstructive pulmonary disease exacerbation, acute exacerbation. 7. Congestive heart failure with chronic systolic dysfunction with mild acute exacerbation. 8. Hyponatremia. 9. NO CODE, NO CPR, NO VENT. RECOMMENDATIONS AND DISCUSSION: In this 77-year-old woman who presented with multiple medical issues, we will monitor the patient closely, continue the current management, continue symptomatic treatment. Repeat labs. Otherwise, continue with the anticoagulations as before. Continue rest of the medications, bronchodilators. Empiric antibiotics also will be given. The most recent chest x-ray done yesterday was reviewed personally by me. It showed a small left pleural effusion and bibasilar airspace disease as well. I would recommend to continue the current medications. Continue to monitor the fluid/electrolyte balance. We will continue to monitor. Once again, the prognosis is guarded. MMODL / IJN: [id number] /
[2018-03-02 21:47] LABS: Basophils % (A) 0 %; Eosinophils % (A) 0 %; HCT 44.8 % (34.0-46.0); Lymphocytes # (A) 0.7 k/uL (1.0-4.8); Lymphocytes % (A) 9 %; MCH 33.4 pg (25.0-35.0); MCHC 31.2 g/dL (31.0-37.0); MCV 106.9 fL (80.0-100.0); Macrocytosis Moderate; Mean Platelet Volume 6.3; Monocytes # (A) 0.4 k/uL (0-1.0); Monocytes % (A) 5 %; Neutrophils # (A) 6.6 k/uL (1.3-7.7); Neutrophils % (A) 85 %; Platelet Count 229 k/uL (150-450); RBC 4.19 m/uL (3.80-5.40); RDW 13.4 % (11.5-15.5); WBC 7.7 k/uL (3.8-10.6)
[2018-03-03 06:31] LABS: Basophils % (A) 0 %; Eosinophils % (A) 0 %; HCT 44.4 % (34.0-46.0); HGB 13.6 gm/dL (11.4-16.0); Lymphocytes % (A) 13 %; MCH 32.9 pg (25.0-35.0); MCHC 30.7 g/dL (31.0-37.0); MCV 107.2 fL (80.0-100.0); Macrocytosis Moderate; Mean Platelet Volume 6.1; Monocytes # (A) 0.6 k/uL (0-1.0); Monocytes % (A) 8 %; Neutrophils # (A) 5.8 k/uL (1.3-7.7); Neutrophils % (A) 77 %; Platelet Count 213 k/uL (150-450); RBC 4.14 m/uL (3.80-5.40); RDW 13.2 % (11.5-15.5); WBC 7.5 k/uL (3.8-10.6)
[2018-03-03 06:36] LABS: INR 1.1 (<1.2); Prothrombin Time 11.3 sec (9.0-12.0)
[2018-03-03] MEDS: PANTOPRAZOLE 40 MG TABLET PO SCH (06:46)
[2018-03-03] MEDS: SIMETHICONE 80 MG CHEWABLE PO SCH ×2 (06:46→12:08)
[2018-03-03 06:47] LABS: Blood Urea Nitrogen 29 mg/dL (7-17); Calcium 8.1 mg/dL (8.4-10.2); Chloride 90 mmol/L (98-107); Glucose 108 mg/dL (74-99); Potassium 4.2 mmol/L (3.5-5.1); Sodium 135 mmol/L (137-145)
[2018-03-03 06:53] LABS: Anion Gap 0 mmol/L
[2018-03-03 07:01] LABS: Carbon Dioxide 45 mmol/L (22-30)
[2018-03-03] MEDS: IPRATROPIUM-ALBUTEROL 3 ML NEB INHALATION SCH ×3 (07:07→15:56)
[2018-03-03] MEDS: SYMBICORT 80-4.5 MCG INHALER INHALATION SCH (07:07)
[2018-03-03 09:12] VITALS: RESP 16
[2018-03-03] MEDS: METOPROLOL TARTRATE 50 MG TAB PO SCH (09:12)
[2018-03-03] MEDS: predniSONE 20 MG TAB PO SCH (09:13)
[2018-03-03] MEDS: ATORVASTATIN 20 MG TAB PO SCH (09:13)
[2018-03-03] MEDS: CALCIUM CARBONATE 500 MG CHEWABLE PO SCH (09:13)
[2018-03-03] MEDS: NICOTINE 14MG/24HR PATCH TRANSDERM SCH (09:13)
[2018-03-03] MEDS: FUROSEMIDE 40 MG TAB PO SCH (09:13)
[2018-03-03] MEDS: ASCORBIC ACID 500 MG TAB PO SCH (09:13)
[2018-03-03] MEDS: DIGOXIN 125 MCG TAB PO SCH (09:13)
[2018-03-03] MEDS: APIXABAN 2.5 MG TABLET PO SCH (09:13)
[2018-03-03] MEDS: AZITHROMYCIN 500 MG TAB PO SCH (09:13)
--- NOTE | 2018-03-03 12:00 | P.PN ---
Subjective Progress Note Date: 03/03/18 This is a 68-year-old female who presented to the hospital with GI bleed, she was noted on presentation here to have significantly elevated INR, Coumadin had been placed on hold. Patient does have history of chronic atrial fibrillation and was on Coumadin as an outpatient. Her INR this morning is 2.4. We did look into coverage with [employer] which will cost her approximately $ 39 a month. Discussions are also being made with the daughter regarding possible ECF placement. This morning patient feels well, denies any shortness of breath, no chest discomfort, no palpitations. Blood pressure 96/60 with a heart rate in the 60s. 94% on 3 L. Pro time 23.5 with an INR 2.4. Sodium 136 , potassium 4.2, BUN 20, creatinine 0.6. Weight is down 5 kg today, patient continues to be on IV diuretics. 02/25/2018 Patient seen and examined this morning, she does state she is feeling overall better today. Started on Eliquis today. Blood pressure 108/70, heart rate in the 60s, 93% on 3 L of oxygen. Sodium 132, potassium 4.3, BUN 17 and creatinine 0.4. Currently on oral diuretics. 03/01/2018 Patient seen and examined this morning, blood pressure 100/60, heart rate in the 80s, BUN 25, creatinine 0.4, magnesium level I.4. Patient states she continues to have diarrhea stools, overall her breathing is stable. She did have a repeat chest x-ray this morning which showed a small left pleural effusion and bibasilar air space disease which may relate atelectasis. Confluent pulmonary edema or less likely pneumonia. She is currently on oral Lasix, 40 mg twice a day. 03/02/2018 Patient seen and examined this morning, hemodynamically stable. Sodium 134, potassium 4.2, BUN 26, creatinine 0.4. Magnesium 1.7 today. 03/03/2018 Patient seen and examined this morning, states that she feels well overall. Blood pressure 110/50 with a heart rate in the 80s, 94% on 2 L of oxygen. White blood cell count 7.5, hemoglobin 13.6, platelet count 213. Objective - Vital Signs Vital signs: Vital Signs Temp 96.7 F L 03/03/18 08:00 Pulse 89 03/03/18 08:00 Resp 16 03/03/18 08:00 BP 110/55 03/03/18 08:00 Pulse Ox 94 L 03/03/18 08:00 Intake & Output 03/02/18 03/03/18 03/03/18 18:59 06:59 18:59 Intake Total 828 Output Total 500 900 0 Balance 328 -900 0 Weight 57 kg 58.2 kg Intake: IV 20 09 20 Intake, IV Titration 50 Amount cefTRIAXone 1,000 mg In 50 Sodium Chloride 0.9% 50 ml @ 100 mls/hr IVPB Q24HR [facility] Rx#:[id number] Oral 758 Output: Urine 500 900 0 Other: Voiding Method Diaper Bedside Commode Incontinent - Exam PHYSICAL EXAMINATION: GENERAL: This is a 77-year-old female in no acute distress at the time of my examination HEENT: Head is atraumatic, normocephalic. Pupils equal, round. Sclera anicteric. Conjunctiva are clear. Mucous membranes of the mouth are moist. Neck is supple. There is no elevated jugular venous pressure. No carotid bruit is heard. HEART EXAMINATION: Heart S1 and S2 irregularly irregular systolic murmur is heard. CHEST EXAMINATION: Lungs reveal diminished air entry bilaterally, few scattered coarse rhonchi and rales are heard. ABDOMEN: Soft, nontender. Bowel sounds are heard. No organomegaly noted. EXTREMITIES: 2+ peripheral pulses with no evidence of peripheral edema and no calf tenderness noted. NEUROLOGIC patient is awake, alert and oriented 2 . . - Labs CBC & Chem 7: 03/03/18 06:11 03/03/18 06:11 Labs: Abnormal Lab Results - Last 24 Hours (Table) 03/02/18 03/03/18 03/03/18 Range/Units 20:49 06:11 06:11 MCV 106.9 H 107.2 H (80.0-100.0) fL MCHC 30.7 L (31.0-37.0) g/dL Lymphocytes # 0.7 L (1.0-4.8) k/uL Sodium 135 L (137-145) mmol/L Chloride 90 L (98-107) mmol/L Carbon Dioxide 45 H* (22-30) mmol/L BUN 29 H (7-17) mg/dL Glucose 108 H (74-99) mg/dL Calcium 8.1 L (8.4-10.2) mg/dL Assessment and Plan Plan: Assessment and plan #1 lower GI bleed, likely secondary to hemorrhoids #2 coagulopathy, INR 8.6 on admission, patient now is on Eliquis. #3 chronic persistent atrial fibrillation #4 hypertension #5 COPD #6 systolic congestive heart failure acute on chronic Plan From cardiology's perspective, we'll recommend to continue the patient on her current medications. Atrial fibrillation is under much better control. Continue current dose of oral diuretics. She is anticipating transferred back to [facility] today.. DNP note has been reviewed, I agree with a documented findings and plan of care. Patient was seen and examined.
[2018-03-03] MEDS: VIT A,C & E-LUTEIN-MINERALS 1 EACH TAB PO SCH (12:07)
[2018-03-03 12:10] VITALS: BP 94/59; TEMP 97.9
--- NOTE | 2018-03-03 13:55 | P.DS ---
Providers Date of admission: 02/22/18 14:06 Expected date of discharge: 03/03/18 Attending physician: Ever Sorensen Consults: 02/22/18 14:05 Consult Physician Routine Consulting Provider: Trey Cameron Consult Reason/Comments: CHF, rapid atrial fibrillation Do you want consulting provider notified?: Yes 02/28/18 11:57 Consult Physician Routine Consulting Provider: Tricia Lee Consult Reason/Comments: prolapsed rectum Do you want consulting provider notified?: Yes Primary care physician: Janel Marie Hospital Course: Final Diagnoses: -Acute lower GI bleed, suspected to be related to hemorrhoids -Coumadin toxicity, INR 8.6 on admission. Coumadin switched to Eliquis -Chronic persistent Atrial fibrillation with rapid ventricular rate, controlled ventricular rate. -Possible COPD with acute exacerbation, less likely pneumonia -Acute on chronic exacerbation Congestive heart failure chronic systolic dysfunction , Lasix increased Code status DO NOT RESUSCITATE Hospital course: This is a 77-year-old female admitted with GI bleed, INR 8.6, on Coumadin for chronic atrial fibrillation, acute on chronic CHF and multiple other medical issues. Evaluated by cardiology, GI, surgery. No evidence of rectal prolapse or bleeding.Suspected hemorrhoidal bleeding. Maintained on bowel regimen, Anusol suppositories. Hemoglobin stable at 13.7. Potential Outpatient colonoscopy. Cleared to resume anticoagulation as per GI. Switched from Coumadin to Eliquis as per cardiology. Significant clinical improvement. Cleared by all consults for discharge. Patient is being discharged to [facility] subacute rehab in a stable condition with guarded prognosis. - Exam GENERAL: No acute distress, alert and oriented 3 CVS: Irregular S1 and S2, positive systolic murmur, no edema CHEST: Decreased air entry in all lung gar[place]. Coarse rhonchi, fine bibasilar crackles ABDOMEN: Soft, obese. Bowel sounds are positive. No organomegaly. No guarding or rigidity. NEUROLOGIC: No focal deficits. The impression and plan of care has been dictated as directed. : I performed a history and examination of this patient, discussed the same with the dictator. I agree with the dictator's note ,documented as a scribe. Any additional findings or plans will be noted. Time taken: 35 minutes Patient Condition at Discharge: Stable Plan - Discharge Summary Discharge Rx Participant: No New Discharge Prescriptions: New Apixaban [Eliquis] 2.5 mg PO BID tablet Azithromycin [Zithromax] 500 mg PO DAILY #5 tab Cefuroxime Axetil [Ceftin] 500 mg PO BID #10 tab Furosemide [Lasix] 40 mg PO BID@0900,1600 tab Hydrocortisone Suppository [Anusol-Hc] 25 mg RECTAL HS supp Ipratropium-Albuterol Nebulize [Duoneb 0.5 mg-3 mg/3 ml Soln] 3 ml INHALATION RT-QID ampul.neb Ipratropium-Albuterol Nebulize [Duoneb 0.5 mg-3 mg/3 ml Soln] 3 ml INHALATION Q4H PRN ampul.neb PRN Reason: Shortness Of Breath Or Wheezing Metoprolol Tartrate [Lopressor] 50 mg PO BID tab Nicotine 14Mg/24Hr Patch [Habitrol] 1 patch TRANSDERM DAILY patch predniSONE 10 mg PO DIRECTED #30 tab Continue Ergocalciferol [Vitamin D2 (DRISDOL)] 50,000 unit PO Q30D Digoxin [Digitek] 125 mcg PO DAILY Potassium Chloride ER [K-Dur 20] 20 meq PO DAILY Vit C/E/Zn/Coppr/Lutein/Zeaxan [Preservision Areds 2 Softgel] 1 cap PO DAILY Atorvastatin [Lipitor] 20 mg PO DAILY tab Pantoprazole [Protonix] 40 mg PO AC-BID tablet. Ascorbic Acid [Vitamin C] 500 mg PO DAILY Calcium Carbonate [Calcium] 600 mg PO BID Fluticasone/Salmeterol [Advair 250-50 Diskus] 1 puff INHALATION RT-BID Discontinued Furosemide [Lasix] 20 mg PO DAILY tab Verapamil Sr [Isoptin Sr] 120 mg PO DAILY tablet.er Warfarin [Coumadin] 5 mg PO FRSA Warfarin Sodium [Coumadin] 4 mg PO SUMOTUWETH@1800 Metoprolol Tartrate [Lopressor] 25 mg PO Q12H Discharge Medication List Digoxin [Digitek] 125 mcg PO DAILY 12/07/16 [History] Ergocalciferol [Vitamin D2 (DRISDOL)] 50,000 unit PO Q30D 12/07/16 [History] Potassium Chloride ER [K-Dur 20] 20 meq PO DAILY 12/07/16 [History] Vit C/E/Zn/Coppr/Lutein/Zeaxan [Preservision Areds 2 Softgel] 1 cap PO DAILY [History] Atorvastatin [Lipitor] 20 mg PO DAILY tab 12/15/16 [Rx] Pantoprazole [Protonix] 40 mg PO AC-BID tablet. 12/15/16 [Rx] Ascorbic Acid [Vitamin C] 500 mg PO DAILY 02/22/18 [History] Calcium Carbonate [Calcium] 600 mg PO BID 02/22/18 [History] Fluticasone/Salmeterol [Advair 250-50 Diskus] 1 puff INHALATION RT-BID 02/22/18 [History] Apixaban [Eliquis] 2.5 mg PO BID tablet 03/03/18 [Rx] Azithromycin [Zithromax] 500 mg PO DAILY #5 tab 03/03/18 [Rx] Cefuroxime Axetil [Ceftin] 500 mg PO BID #10 tab 03/03/18 [Rx] Furosemide [Lasix] 40 mg PO BID@0900,1600 tab 03/03/18 [Rx] Hydrocortisone Suppository [Anusol-Hc] 25 mg RECTAL HS supp 03/03/18 [Rx] Ipratropium-Albuterol Nebulize [Duoneb 0.5 mg-3 mg/3 ml Soln] 3 ml INHALATION Q4H PRN ampul.neb 03/03/18 [Rx] Ipratropium-Albuterol Nebulize [Duoneb 0.5 mg-3 mg/3 ml Soln] 3 ml INHALATION RT -QID ampul.neb 03/03/18 [Rx] Metoprolol Tartrate [Lopressor] 50 mg PO BID tab 03/03/18 [Rx] Nicotine 14Mg/24Hr Patch [Habitrol] 1 patch TRANSDERM DAILY patch 03/03/18 [Rx] predniSONE 10 mg PO DIRECTED #30 tab 03/03/18 [Rx] Follow up Appointment(s)/Referral(s): Janel Marie MD [Primary Care Provider] - 3 Days Sarah Pastrana MD [STAFF PHYSICIAN] - 03/10/18 11:00 am Genaro Miguel MD [STAFF PHYSICIAN] - As Needed () Patient Instructions/Handouts: Heart Failure (DC), Heart Healthy Diet (DC) Activity/Diet/Wound Care/Special Instructions: [facility] [place] Script for Eliquis at [facility] location - call at discharge for bedside delivery - copay $39. Diet: Cardiac Activity: Limited to follow up CBC, BMP in 3 days Discharge Disposition: TRANSFER TO SNF/ECF
[2018-03-03 15:58] VITALS: PULSE 76
[2018-03-19] MEDS ORDERED: ERGOCALCIFEROL 50,000 UNIT CAP PO SCH (09:00)
== END 2018-03-03 16:04 | DRG 308 ==
LOC: SUPCPDRO 09:28 → EC 09:28 → 3SCARD 14:06
PROVIDERS: ADMIT Internal Medicine; ATTEND Internal Medicine
DX: I48.1 Persistent atrial fibrillation (principal); I50.43 Acute on chronic combined systolic (congestive) and diastolic (congestive) heart failure; E87.1 Hypo-osmolality and hyponatremia; E87.3 Alkalosis; I11.0 Hypertensive heart disease with heart failure; E83.42 Hypomagnesemia; K64.4 Residual hemorrhoidal skin tags; E66.9 Obesity, unspecified; Z68.21 Body mass index [BMI] 21.0-21.9, adult; E78.5 Hyperlipidemia, unspecified; K21.9 Gastro-esophageal reflux disease without esophagitis; K62.3 Rectal prolapse; J43.9 Emphysema, unspecified; Z66 Do not resuscitate; T45.515A Adverse effect of anticoagulants, initial encounter; M19.90 Unspecified osteoarthritis, unspecified site; E87.5 Hyperkalemia; T50.0X5A Adverse effect of mineralocorticoids and their antagonists, initial encounter; Z79.01 Long term (current) use of anticoagulants; Z79.899 Other long term (current) drug therapy; Z80.0 Family history of malignant neoplasm of digestive organs; Z82.49 Family history of ischemic heart disease and other diseases of the circulatory system; Z90.710 Acquired absence of both cervix and uterus; Z87.891 Personal history of nicotine dependence; Z88.2 Allergy status to sulfonamides
CPT/HCPCS: 36415; 71045; 71046; 74018; 80048; 80053; 80162; 81001; 82150; 82272; 82550; 82553; 83690; 83735; 83880; 84484; 85025; 85027; 85610; 85730; 86850; 86900; 86901; 87040; 93005; 93306; 94640; 94760; 96365; 96366; 99291

== ENCOUNTER 2018-10-24 14:51 | Inpatient (IN) | payer MEDICARE, BC, OTHER ==
--- NOTE | 2018-10-24 15:01 | ED ---
General Adult HPI - General Stated complaint: SOB Time Seen by Provider: 10/24/18 14:51 Source: RN notes reviewed - History of Present Illness Initial comments: This is an 78-year-old female presents to the emergency department complaining of difficulty breathing since this morning. Patient has a past medical history significant for COPD as well as congestive heart failure. Patient states it is gotten progressively worse. Patient states that she has no chest pain no palpitations she has had no recent fever chills. Patient did receive a breathing treatment as well as Solu-Medrol in route patient states it didn't make feel somewhat better. Patient denies any abdominal pain patient denies nausea vomiting. Patient denies any headache patient denies numbness weakness. Patient denies any lightheadedness dizziness or near syncopal episode. Patient denies any swelling to the legs or calf tenderness. - Related Data Home Medications Medication Instructions Recorded Confirmed Digoxin [Digitek] 125 mcg PO DAILY 12/07/16 10/24/18 Ergocalciferol [Vitamin D2 50,000 unit PO Q30D 12/07/16 10/24/18 ([id number])] Potassium Chloride ER [K-Dur 20] 20 meq PO DAILY 12/07/16 10/24/18 Calcium Carbonate [Calcium] 600 mg PO BID 02/22/18 10/24/18 Albuterol Nebulized [Ventolin 2.5 mg INHALATION RT-Q4H PRN 10/24/18 10/24/18 Nebulized] Furosemide [Lasix] 20 mg PO Q72H 10/24/18 10/24/18 Metoprolol Succinate [Toprol XL] 25 mg PO DAILY 10/24/18 10/24/18 Verapamil HCl [Verapamil ER] 120 mg PO DAILY 10/24/18 10/24/18 Previous Rx's Medication Instructions Recorded Atorvastatin [Lipitor] 20 mg PO DAILY tab 12/15/16 Pantoprazole [Protonix] 40 mg PO AC-BID tablet. 12/15/16 Apixaban [Eliquis] 2.5 mg PO BID tablet 03/03/18 Allergies Allergy/AdvReac Type Severity Reaction Status Date / Time Sulfa (Sulfonamide Allergy Rash/Hives Verified 10/24/18 15:01 Antibiotics) Review of Systems ROS Statement: Those systems with pertinent positive or pertinent negative responses have been documented in the HPI. ROS Other: All systems not noted in ROS Statement are negative. 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 History of Any Multi-Drug Resistant Organisms: None Reported Past Surgical History: Back Surgery, Hysterectomy Additional Past Surgical History / Comment(s): cataracts Past Anesthesia/Blood Transfusion Reactions: No Reported Reaction Smoking Status: Former smoker - Past Family History Mother Family Medical History: Cancer Additional Family Medical History / Comment(s): esophageal CA Father Family Medical History: Myocardial Infarction ([place]) General Exam - General Exam Comments Initial Comments: GENERAL: Patient is well-developed and well-nourished. Patient is nontoxic and well- hydrated and is in mild distress. ENT: Neck is soft and supple. No significant lymphadenopathy is noted. Oropharynx is clear. Moist mucous membranes. Neck has full range of motion without eliciting any pain. EYES: The sclera were anicteric and conjunctiva were pink and moist. Extraocular movements were intact and pupils were equal round and reactive to light. Eyelids were unremarkable. PULMONARY: Unlabored respirations. Good breath sounds bilaterally. No audible rales rh onchi or wheezing was noted. CARDIOVASCULAR: There is a regular rate and rhythm without any murmurs gallops or rubs. ABDOMEN: Soft and nontender with normal bowel sounds. No palpable organomegaly was noted. There is no palpable pulsatile mass. SKIN: Skin is clear with no lesions or rashes and otherwise unremarkable. NEUROLOGIC: Patient is alert and oriented x3. Cranial nerves II through XII are grossly intact. Motor and sensory are also intact. Normal speech, volume and content. Symmetrical smile. MUSCULOSKELETAL: Normal extremities with adequate strength and full range of motion. No lower extremity swelling or edema. No calf tenderness. LYMPHATICS: No significant lymphadenopathy is noted PSYCHIATRIC: Normal psychiatric evaluation. Course Vital Signs 10/24/18 10/24/18 14:53 16:00 Temperature 98.6 F Pulse Rate 91 88 Respiratory 24 18 Rate Blood Pressure 94/62 102/72 O2 Sat by Pulse 93 L 95 Oximetry Medical Decision Making - Medical Decision Making EKG shows atrial fibrillation at a 86 beats minute QRS 82 QT interval 320 QTC is 382. Patient's EKG shows no ST segment elevation or depression. Chest x-ray shows a pneumonia as well as some pulmonary edema. I gave the patient some fluid because of the blood pressure was standing around systolic 100. I also gave the patient antibiotics. I spoke with conjugate admit the patient admitted the patient wrote admitting orders. I did order 20 of Lasix after the fluid was given. He is comfortable and vitals are stable - Lab Data Result diagrams: 10/24/18 15:05 10/24/18 15:05 Lab Results 10/24/18 10/24/18 10/24/18 Range/Units 15:05 15:05 15:05 WBC 19.8 H (3.8-10.6) k/uL RBC 3.70 L (3.80-5.40) m/uL Hgb 12.2 (11.4-16.0) gm/dL Hct 37.2 (34.0-46.0) % MCV 100.6 H (80.0-100.0) fL MCH 32.9 (25.0-35.0) pg MCHC 32.7 (31.0-37.0) g/dL RDW 14.0 (11.5-15.5) % Plt Count 218 (150-450) k/uL Neutrophils % 88 % Lymphocytes % 8 % Monocytes % 3 % Eosinophils % 0 % Basophils % 0 % Neutrophils # 17.5 H (1.3-7.7) k/uL Lymphocytes # 1.6 (1.0-4.8) k/uL Monocytes # 0.5 (0-1.0) k/uL Eosinophils # 0.0 (0-0.7) k/uL Basophils # 0.0 (0-0.2) k/uL Macrocytosis Slight Sodium 137 (137-145) mmol/L Potassium 4.2 (3.5-5.1) mmol/L Chloride 94 L (98-107) mmol/L Carbon Dioxide 34 H (22-30) mmol/L Anion Gap 9 mmol/L BUN 14 (7-17) mg/dL Creatinine 0.44 L (0.52-1.04) mg/dL Est GFR (CKD-EPI)AfAm >90 (>60 ml/min/1.73 sqM) Est GFR (CKD-EPI)NonAf >90 (>60 ml/min/1.73 sqM) Glucose 123 H (74-99) mg/dL Calcium 8.7 (8.4-10.2) mg/dL Magnesium 1.3 L (1.6-2.3) mg/dL Total Bilirubin 0.8 (0.2-1.3) mg/dL AST 25 (14-36) U/L ALT 20 (9-52) U/L Alkaline Phosphatase 60 (38-126) U/L Troponin I (0.000-0.034) ng/mL NT-Pro-B Natriuret Pep 4660 pg/mL Total Protein 6.1 L (6.3-8.2) g/dL Albumin 3.4 L (3.5-5.0) g/dL 10/24/18 Range/Units 15:05 WBC (3.8-10.6) k/uL RBC (3.80-5.40) m/uL Hgb (11.4-16.0) gm/dL Hct (34.0-46.0) % MCV (80.0-100.0) fL MCH (25.0-35.0) pg MCHC (31.0-37.0) g/dL RDW (11.5-15.5) % Plt Count (150-450) k/uL Neutrophils % % Lymphocytes % % Monocytes % % Eosinophils % % Basophils % % Neutrophils # (1.3-7.7) k/uL Lymphocytes # (1.0-4.8) k/uL Monocytes # (0-1.0) k/uL Eosinophils # (0-0.7) k/uL Basophils # (0-0.2) k/uL Macrocytosis Sodium (137-145) mmol/L Potassium (3.5-5.1) mmol/L Chloride (98-107) mmol/L Carbon Dioxide (22-30) mmol/L Anion Gap mmol/L BUN (7-17) mg/dL Creatinine (0.52-1.04) mg/dL Est GFR (CKD-EPI)AfAm (>60 ml/min/1.73 sqM) Est GFR (CKD-EPI)NonAf (>60 ml/min/1.73 sqM) Glucose (74-99) mg/dL Calcium (8.4-10.2) mg/dL Magnesium (1.6-2.3) mg/dL Total Bilirubin (0.2-1.3) mg/dL AST (14-36) U/L ALT (9-52) U/L Alkaline Phosphatase (38-126) U/L Troponin I <0.012 (0.000-0.034) ng/mL NT-Pro-B Natriuret Pep pg/mL Total Protein (6.3-8.2) g/dL Albumin (3.5-5.0) g/dL Disposition Clinical Impression: Pneumonia, Pulmonary edema Disposition: ADMITTED IP TO THIS HOSP Referrals: Noel Leonardo DO [Doctor of Osteopathic Medicine] - 1-2 days Time of Disposition: 16:33
[2018-10-24 15:29] LABS: Basophils % (A) 0 %; Eosinophils % (A) 0 %; HCT 37.2 % (34.0-46.0); HGB 12.2 gm/dL (11.4-16.0); Lymphocytes # (A) 1.6 k/uL (1.0-4.8); Lymphocytes % (A) 8 %; MCH 32.9 pg (25.0-35.0); MCHC 32.7 g/dL (31.0-37.0); MCV 100.6 fL (80.0-100.0); Macrocytosis Slight; Monocytes # (A) 0.5 k/uL (0-1.0); Monocytes % (A) 3 %; Neutrophils # (A) 17.5 k/uL (1.3-7.7); Neutrophils % (A) 88 %; Platelet Count 218 k/uL (150-450); WBC 19.8 k/uL (3.8-10.6)
--- NOTE | 2018-10-24 15:34 | XR ---
EXAMINATION TYPE: XR chest 2V DATE OF EXAM: 10/24/2018 COMPARISON: 03/01/2018 HISTORY: Short of breath TECHNIQUE: Frontal and lateral views of the chest are obtained. FINDINGS: Heart is enlarged. There is 4.5 cm rounded area of consolidation at the superior right pul monary hilum. There is pulmonary vascular congestion. There is pulmonary interstitial edema. There is mild blunting of costophrenic angles. There are chest leads. IMPRESSION: Congestive heart failure. Masslike density at the right pulmonary hilum is a change comp ared to old exam. Follow-up recommended. There is underlying pulmonary fibrosis. Heart failure slight ly worse than old exam.
[2018-10-24 15:44] LABS: ALT 20 U/L (9-52); AST 25 U/L (14-36); African American GFR (CKD) >90 (>60 ml/min/1.73 sqM); Albumin 3.4 g/dL (3.5-5.0); Alkaline Phosphatase 60 U/L (38-126); Anion Gap 9 mmol/L; Blood Urea Nitrogen 14 mg/dL (7-17); Calcium 8.7 mg/dL (8.4-10.2); Carbon Dioxide 34 mmol/L (22-30); Chloride 94 mmol/L (98-107); Glucose 123 mg/dL (74-99); Magnesium 1.3 mg/dL (1.6-2.3); Potassium 4.2 mmol/L (3.5-5.1); Sodium 137 mmol/L (137-145); Total Bilirubin 0.8 mg/dL (0.2-1.3); Total Protein 6.1 g/dL (6.3-8.2)
[2018-10-24] MEDS ORDERED: PIPERACILLIN-TAZOBACTAM 3.375 GM in SODIUM CHLORIDE 0.9% 100 ML IVPB STA (16:07)
[2018-10-24] MEDS ORDERED: MAGNESIUM SULFATE-D5W PMX 1 GM in DEXTROSE/WATER 1 100ML.BAG IVPB ONE (16:07)
[2018-10-24] MEDS ORDERED: SODIUM CHLORIDE 0.9% 1,000 ML IV ONE (16:09)
[2018-10-24] MEDS ORDERED: FUROSEMIDE 10 MG/ML 10 ML VIAL IV STA (16:09)
[2018-10-24] MEDS ORDERED: FUROSEMIDE 10 MG/ML 2 ML VIAL IV ONE (16:20)
[2018-10-24] MEDS ORDERED: PNEUMONIA PROTOCOL UTILIZED 1 EACH MISC PO PRN (16:33)
[2018-10-24 16:42] LABS: INR 1.1 (<1.2); Partial Thromboplastin Time 24.3 sec (22.0-30.0); Prothrombin Time 11.5 sec (9.0-12.0)
[2018-10-24] MEDS: ALBUTEROL NEBULIZED 2.5 MG/3 ML INHALATION PRN (19:27)
[2018-10-24] MEDS ORDERED: RX INFO: IV CONTRAST WAS GIVEN 1 EACH MISC MISCELLANE PRN (19:42)
[2018-10-24] MEDS ORDERED: Magnesium Replacement Protocol 1 EACH MISC MISCELLANE PRN (20:26)
[2018-10-24] MEDS ORDERED: Potassium Replacement Protocol 1 EACH MISC MISCELLANE PRN (20:26)
[2018-10-24] MEDS: FUROSEMIDE 10 MG/ML 4 ML VIAL IV SCH (20:28)
[2018-10-24] MEDS: APIXABAN 2.5 MG TABLET PO SCH (20:29)
[2018-10-24] MEDS: CALCIUM CARBONATE 500 MG CHEWABLE PO SCH (20:29)
[2018-10-24] MEDS ORDERED: FUROSEMIDE 10 MG/ML 4 ML VIAL IV SCH (21:00)
[2018-10-24] MEDS: PIPERACILLIN-TAZOBACTAM 3.375 GM in SODIUM CHLORIDE 0.9% 100 ML IVPB SCH (22:26)
--- NOTE | 2018-10-25 00:57 | HP ---
HISTORY AND PHYSICAL DATE OF SERVICE: 10/24/2018 CHIEF COMPLAINT: Shortness of breath. HISTORY OF PRESENT ILLNESS: This 78-year-old woman with a past medical history of atrial ablation, CHF, GERD, hypertension, hyperlipidemia, DJD, history of chronic back pain, history of back surgery, being followed by Dr. Marie in the outpatient setting, was complaining of increasing shortness of breath for the last several days. The patient also complaining of some chest pain, especially on the right-side with increased respirations. Patient came to [facility]. Chest x-ray was done which was evaluated personally by me. Chest x-ray showed evidence of CHF and masslike density in the right pulmonary hilum is also noted, which is unchanged. Underlying pulmonary fibrosis was suspected. Patient admitted for further evaluation and treatment. Pulmonary and cardiology consultation has been sought at this time. There is no history of fever, rigors or chills. No history of headache, loss of consciousness or seizures. PAST MEDICAL HISTORY: History of atrial fibrillation, CHF, GERD, hypertension, hyperlipidemia, DJD, history of chronic back pain, emphysema. MEDICATIONS: Prior to admission home medications are: 1. Verapamil 120 mg p.o. daily. 2. Klor-Con 20 mEq p.o. daily. 3. Protonix 40 mg p.o. b.i.d. 4. Toprol-XL 25 mg p.o. daily. 5. Lasix 20 mg p.o. Q 72 hours. 6. Vitamin D2 50,000 every 30 days. 7. Digitek 125 mcg p.o. daily. 8. Calcium 600 mg p.o. b.i.d. 9. Lipitor 20 mg p.o. daily. 10.Eliquis 2.5 mg p.o. b.i.d. 11.Ventolin 2.5 q.4 p.r.n. ALLERGIES: SULFA. FAMILY HISTORY: History of esophageal cancer in the family. SOCIAL HISTORY: No history of smoking. No history of alcohol intake. REVIEW OF SYSTEMS: ENT: Diminished vision. Diminished hearing. CARDIOVASCULAR SYSTEM: As mentioned earlier. RESPIRATORY: As mentioned earlier. GI no nausea or vomiting. : No dysuria. Nervous system: No numbness or weakness. ALLERGY/IMMUNOLOGY: No asthma or hayfever. MUSCULOSKELETAL as mentioned earlier. HEMATOLOGY/ONCOLOGY: No history of anemia. ENDOCRINE: No history of diabetes or hypothyroid. CONSTITUTIONAL: As mentioned earlier. DERMATOLOGY: Negative. RHEUMATOLOGY: Negative. PSYCHIATRY: As mentioned earlier. PHYSICAL EXAMINATION: Alert and oriented times x2. Pulse 89, blood pressure 111/80, respiration 18, temperature 98.2, pulse ox 94% on 3 L. HEENT: Conjunctivae normal. Oral mucosa moist. Otherwise diminished hearing. Diminished vision. CARDIOVASCULAR system: S1, S2 muffled. Ejection systolic murmur present. RESPIRATIONS: Breath sounds diminished in the bases. Bilateral scattered rhonchi and crackles. ABDOMEN: Soft, nontender. No mass palpable. LEGS: Minimal leg edema. NERVOUS SYSTEM: Higher functions as mentioned earlier. Moves all 4 limbs. No focal motor or sensory deficits. LYMPHATICS: No lymph nodes palpable in the neck, axilla and groin. SKIN: No ulcer, rashes or bleeding. JOINTS: No active deforming arthropathy. LABS: WBC 19.2, hemoglobin 12.2, sodium 130, potassium 4.2. ASSESSMENT: 1. Shortness of breath possibly multifactorial congestive heart failure, acute exacerbation with acute on chronic systolic dysfunction, ejection fraction 20-30 percent, as well as chronic obstructive pulmonary disease exacerbation with acute purulent tracheobronchitis. 2. History atrial fibrillation, chronic. 3. History of gastroesophageal reflux disease. 4. Right-sided chest pain, possible pleuritic. 5. Hypomagnesemia. 6. Hypertension. 7. Hyperlipidemia. 8. Mild to moderate protein calorie malnutrition with emaciation. 9. Degenerative joint disease. 10.Chronic back pain. 11.History of back surgery. 12.Increased WBC. 13.Hypomagnesemia. RECOMMENDATIONS AND DISCUSSION: This 78-year-old woman who presented with multiple complex medical issues, we will monitor the patient closely, continue the current medications, management and symptomatic treatment. We will initiate intravenous diuretics and bronchodilators also. I would also recommend empiric antibiotics. The patient also had chest pain which could be pleuritic in character. Recommend a CT scan of the chest. Closely follow with Pulmonary and I would also recommend supplement magnesium, magnesium replacement protocol, and repeat magnesium also. Prognosis guarded because of multiple complex medical issues and further recommendations to follow. Closely follow with multiple consultants and further recommendations to follow. The chest x-ray personally reviewed and further recommendations to follow. A copy of this dictation being forwarded to Dr. Marie who is the primary care physician. Symptomatic treatment also will be provided. MMODL / IJN: [id number] /
[2018-10-25] MEDS: FUROSEMIDE 10 MG/ML 4 ML VIAL IV SCH (03:04)
[2018-10-25] MEDS: PANTOPRAZOLE 40 MG TABLET PO SCH ×2 (05:57→16:34)
[2018-10-25 06:21] LABS: Appearance,Urine Clear (Clear); Bilirubin,Urine Negative (Negative); Blood,Urine Negative (Negative); Color,Urine Colorless; Glucose,Urine (UA) Negative (Negative); Ketones,Urine Negative (Negative); Leukocyte Esterase,Urine Negative (Negative); Nitrite,Urine Negative (Negative); PH, Urine 6.5 (5.0-8.0); Protein,Urine Negative (Negative); Specific Gravity,Urine 1.006 (1.001-1.035); Urobilinogen,Urine <2.0 mg/dL (<2.0)
[2018-10-25 06:29] LABS: Basophils % (A) 0 %; Eosinophils % (A) 0 %; HCT 39.1 % (34.0-46.0); HGB 12.6 gm/dL (11.4-16.0); Lymphocytes % (A) 9 %; MCH 32.3 pg (25.0-35.0); MCHC 32.3 g/dL (31.0-37.0); MCV 99.9 fL (80.0-100.0); Mean Platelet Volume 6.9; Monocytes # (A) 0.2 k/uL (0-1.0); Monocytes % (A) 2 %; Neutrophils # (A) 9.8 k/uL (1.3-7.7); Neutrophils % (A) 88 %; Platelet Count 225 k/uL (150-450); RBC 3.91 m/uL (3.80-5.40); RDW 13.8 % (11.5-15.5); WBC 11.2 k/uL (3.8-10.6)
[2018-10-25 07:07] LABS: African American GFR (CKD) >90 (>60 ml/min/1.73 sqM); Anion Gap 7 mmol/L; Blood Urea Nitrogen 15 mg/dL (7-17); Calcium 8.6 mg/dL (8.4-10.2); Carbon Dioxide 36 mmol/L (22-30); Chloride 94 mmol/L (98-107); Glucose 130 mg/dL (74-99); Magnesium 1.4 mg/dL (1.6-2.3); Potassium 3.5 mmol/L (3.5-5.1); Sodium 137 mmol/L (137-145)
--- NOTE | 2018-10-25 07:45 | XR ---
EXAMINATION TYPE: XR chest 2V DATE OF EXAM: 10/25/2018 COMPARISON: Chest x-ray from yesterday and older studies. HISTORY: Pneumonia progress study. TECHNIQUE: Frontal and lateral views of the chest are obtained. FINDINGS: Background chronic emphysematous change with persistent small left pleural effusion and ass ociated left basilar atelectasis and/or infiltrate. Some improved aeration right lung base noted. Per sistent right suprahilar masslike consolidation worrisome for neoplasm. The cardiac silhouette size is stable and within normal limits with atherosclerotic and slightly ectatic aorta. Underlying scolio sis is present. IMPRESSION: Chronic emphysematous and parenchymal fibrotic changes with persistent small left pleura l effusion and associated left basilar atelectasis and/or infiltrate. There is improvement in right b asilar infiltrate and/or atelectasis. Persistent suspicious right suprahilar mass or masslike consoli dation worrisome for neoplasm. Follow-up chest CT should be considered.
[2018-10-25] MEDS ORDERED: VERAPAMIL SR 120 MG TABLET.ER PO SCH (09:00)
[2018-10-25] MEDS: ALBUTEROL NEBULIZED 2.5 MG/3 ML INHALATION PRN ×2 (09:01→19:21)
--- NOTE | 2018-10-25 09:20 | CT ---
EXAMINATION TYPE: CT chest w con DATE OF EXAM: 10/25/2018 COMPARISON: 10/16/2009 HISTORY: Rt hilar mass CT DLP: 255.7 mGycm Automated exposure control for dose reduction was used. CONTRAST: CT scan of the chest is performed with IV Contrast, patient injected with 100 mL of Isovue 300. FINDINGS: LUNGS: There is a large lobulated right suprahilar mass with paraspinal extension measuring 5.0 x 4.5 x 4.4 cm and felt to reflect malignancy until proven otherwise. No bony destruction is noted at this time. 1.7 cm lobulated nodule noted within the right lower lobe image 48 was present in 2009.. Pleur al-based nodule left lower lobe measuring 1.6 cm as well as an adjacent nodule measuring 1.1 cm. Righ t basilar patchy infiltrate noted. Small left-sided effusion identified. Upper lobe emphysematous bhaskar nges noted. MEDIASTINUM: There are no greater than 1 cm hilar or mediastinal lymph nodes. No pericardial effusi on is seen. Thoracic aorta is of normal caliber. The heart is enlarged. UPPER ABDOMEN: Simple cyst upper pole left kidney measuring 4.2 cm. OTHER: No additional significant abnormality is seen. IMPRESSION: 1. Large lobulated right suprahilar mass with the right paraspinal extension and no evidence for asso ciated bony destruction. Findings are felt to reflect malignancy until given otherwise. Additional pu lmonary nodularity as discussed.
[2018-10-25] MEDS: METOPROLOL SUCCINATE (ER) 25 MG TAB.ER.24H PO SCH (09:29)
[2018-10-25] MEDS: APIXABAN 2.5 MG TABLET PO SCH (09:29)
[2018-10-25] MEDS: ATORVASTATIN 20 MG TAB PO SCH (09:29)
[2018-10-25] MEDS: CALCIUM CARBONATE 500 MG CHEWABLE PO SCH ×2 (09:30→19:59)
[2018-10-25] MEDS: POTASSIUM CHLORIDE ER 20 MEQ TAB.ER PO SCH ×5 (09:30→17:24)
[2018-10-25] MEDS: DIGOXIN 125 MCG TAB PO SCH (09:30)
[2018-10-25] MEDS: PIPERACILLIN-TAZOBACTAM 3.375 GM in SODIUM CHLORIDE 0.9% 100 ML IVPB SCH ×3 (09:30→23:01)
--- NOTE | 2018-10-25 09:56 | P.CRDCN ---
History of Present Illness Consult date: 10/25/18 Requesting physician: Izaiah Viera Consult reason: shortness of breath Chief complaint: Shortness of breath History of present illness: This is a pleasant 78-year-old female who follows with Dr. VC Pastrana in the office. 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 She presents to the hospital on this occasion with symptoms of progressively worsening shortness of breath, extreme weakness, and productive cough of yellow sputum. Her chest x-ray on presentation here showed congestive heart failure with a masslike density at the right pulmonary hilum which is a change as compared with her prior exam. There is also some underlying pulmonary fibrosis. Heart failure slightly worsened prior exam. Her EKG shows atrial fibrillation with nonspecific ST-T wave changes. Subsequent chest x-ray showed chronic emphysema and parenchymal fibrotic changes with a persistent small left pleural effusion and associated atelectasis. Persistent suspicious right suprahilar mass worrisome for neoplasm. CAT scan of the chest showed a large lobulated right suprahilar mass with the right paraspinal extension and no evidence for associated bony destruction. Findings are felt to reflect malignancy until given otherwise. Additional pulmonary nodularity as discussed. Blood pressure 120/50 with a heart rate in the 80s to 90s. 99% on 3 L of oxygen. White blood cell count 19.8 on admission, 11.2 this morning, hemoglobin 12.6, platelet count 225. Sodium 137, potassium 3.5, BUN 15, creatinine 0.5. Magnesium 1.3 on admission, 1.4 this morning. Troponin negative. BNP level 4660. At the time of my examination this morning, patient continues to feel quite short of breath, she continues to have a productive cough of yellow to green sputum. 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 Rectal prolapsed. History of Any Multi-Drug Resistant Organisms: None Reported Past Surgical History: Back Surgery, Hysterectomy Additional Past Surgical History / Comment(s): cataracts Past Anesthesia/Blood Transfusion Reactions: No Reported Reaction Past Psychological History: No Psychological Hx Reported Additional Psychological History / Comment(s): pt stated lives alone in senior apts ([facility] [place]) has pull cord in bathroom and security doors). has nebulizer, walker, cane. Smoking Status: Never smoker Past Alcohol Use History: None Reported Additional Past Alcohol Use History / Comment(s): started smoking age 20 adn quit 2017 smoked 1 ppd Past Drug Use History: None Reported - Past Family History Mother Family Medical History: Cancer Additional Family Medical History / Comment(s): esophageal CA Father Family Medical History: Myocardial Infarction ([place]) Medications and Allergies Home Medications Medication Instructions Recorded Confirmed Type Digoxin [Digitek] 125 mcg PO DAILY 12/07/16 10/24/18 History Ergocalciferol [Vitamin D2 50,000 unit PO Q30D 12/07/16 10/24/18 History (DRISDDIDI)] Potassium Chloride ER [K-Dur 20] 20 meq PO DAILY 12/07/16 10/24/18 History Atorvastatin [Lipitor] 20 mg PO DAILY tab 12/15/16 10/24/18 Rx Pantoprazole [Protonix] 40 mg PO AC-BID tablet.dr 12/15/16 10/24/18 Rx Calcium Carbonate [Calcium] 600 mg PO BID 02/22/18 10/24/18 History Apixaban [Eliquis] 2.5 mg PO BID tablet 03/03/18 10/24/18 Rx Albuterol Nebulized [Ventolin 2.5 mg INHALATION RT-Q4H PRN 10/24/18 10/24/18 History Nebulized] Furosemide [Lasix] 20 mg PO Q72H 10/24/18 10/24/18 History Metoprolol Succinate [Toprol XL] 25 mg PO DAILY 10/24/18 10/24/18 History Verapamil HCl [Verapamil ER] 120 mg PO DAILY 10/24/18 10/24/18 History Allergies Allergy/AdvReac Type Severity Reaction Status Date / Time Sulfa (Sulfonamide Allergy Rash/Hives Verified 10/24/18 15:01 Antibiotics) Physical Exam Vitals: Vital Signs Temp Pulse Pulse Resp BP BP Pulse Ox 10/25/18 09:10 80 10/25/18 09:02 88 10/25/18 03:09 98 F 88 18 135/82 95 10/24/18 23:07 85 18 142/82 96 10/24/18 20:00 98.2 F 89 18 135/76 95 10/24/18 19:34 84 10/24/18 19:28 83 10/24/18 17:55 98.4 F 89 18 111/88 95 10/24/18 16:57 98.3 F 105 H 16 150/79 93 L 10/24/18 16:45 88 18 118/68 95 10/24/18 16:00 88 18 102/72 95 10/24/18 14:53 98.6 F 91 24 94/62 93 L Intake and Output 10/24/18 10/25/18 10/25/18 22:59 06:59 14:59 Output Total 2500 Balance -2500 Output: Urine 2500 Other: # Voids 3 PHYSICAL EXAMINATION: GENERAL: 78-year-old female in no acute distress at the time of my examination HEENT: Head is atraumatic, normocephalic. Pupils equal, round. Sclera anicte angelito. Conjunctiva are clear. Mucous membranes of the mouth are moist. Neck is supple. There is elevated jugular venous pressure. No carotid bruit is heard. HEART EXAMINATION: Heart S1 S2 irregularly irregular no murmur or gallop. CHEST EXAMINATION:lungs reveal decreased air exchange throughout with scattered rhonchi. ABDOMEN: Soft, nontender. Bowel sounds are heard. No organomegaly noted. EXTREMITIES: 2+ peripheral pulses with no evidence of peripheral edema and no calf tenderness noted. Chronic discoloration of the lower extremities NEUROLOGIC patient is awake, alert and oriented 3 . . Results 10/25/18 05:59 10/25/18 05:59 Cardiac Enzymes 10/24/18 10/24/18 Range/Units 15:05 15:05 AST 25 (14-36) U/L Troponin I <0.012 (0.000-0.034) ng/mL Coagulation 10/24/18 Range/Units 15:05 PT 11.5 (9.0-12.0) sec APTT 24.3 (22.0-30.0) sec CBC 10/24/18 10/25/18 Range/Units 15:05 05:59 WBC 19.8 H 11.2 H (3.8-10.6) k/uL RBC 3.70 L 3.91 (3.80-5.40) m/uL Hgb 12.2 12.6 (11.4-16.0) gm/dL Hct 37.2 39.1 (34.0-46.0) % Plt Count 218 225 (150-450) k/uL Comprehensive Metabolic Panel 10/24/18 10/25/18 Range/Units 15:05 05:59 Sodium 137 137 (137-145) mmol/L Potassium 4.2 3.5 (3.5-5.1) mmol/L Chloride 94 L 94 L (98-107) mmol/L Carbon Dioxide 34 H 36 H (22-30) mmol/L BUN 14 15 (7-17) mg/dL Creatinine 0.44 L 0.51 L (0.52-1.04) mg/dL Glucose 123 H 130 H (74-99) mg/dL Calcium 8.7 8.6 (8.4-10.2) mg/dL AST 25 (14-36) U/L ALT 20 (9-52) U/L Alkaline Phosphatase 60 (38-126) U/L Total Protein 6.1 L (6.3-8.2) g/dL Albumin 3.4 L (3.5-5.0) g/dL Current Medications Generic Name Dose Route Start Last Admin Trade Name Freq PRN Reason Stop Dose Admin Albuterol Sulfate 2.5 mg 10/24/18 16:33 10/25/18 09:01 Ventolin Nebulized INHALATION 2.5 mg RT-Q4H PRN Administration Shortness Of Breath Or Wheezing Alprazolam 0.25 mg 10/24/18 19:47 Xanax PO TID PRN Anxiety Apixaban 2.5 mg 10/24/18 21:00 10/25/18 09:29 Eliquis PO 2.5 mg BID UZAIR Administration Atorvastatin Calcium 20 mg 10/25/18 09:00 10/25/18 09:29 Lipitor PO 20 mg DAILY UZAIR Administration Calcium Carbonate/Glycine 500 mg 10/24/18 21:00 10/25/18 09:30 Tums PO 500 mg BID UZAIR Administration Digoxin 125 mcg 10/25/18 09:00 10/25/18 09:30 Lanoxin PO 125 mcg DAILY UZAIR Administration Ergocalciferol 50,000 unit 11/16/18 09:00 Vitamin D2 PO Q30D UZAIR Furosemide 40 mg 10/24/18 20:00 10/25/18 03:04 Lasix IV 40 mg Q8H UZAIR Administration Piperacillin Sod/Tazobactam 100 mls @ 25 mls/hr 10/25/18 00:00 10/25/18 09:30 Sod 3.375 gm/ Sodium Chloride IVPB 25 mls/hr Q8HR UZAIR Administration Metoprolol Succinate 25 mg 10/25/18 09:00 10/25/18 09:29 Toprol Xl PO 25 mg DAILY UZAIR Administration Miscellaneous Information 1 each 10/24/18 16:33 Pneumonia Protocol Utilized PO ONCE PRN Per Protocol Miscellaneous Information 1 each 10/24/18 19:42 Rx Info: Iv Contrast Was Given MISCELLANE 10/26/18 19:43 DAILY PRN Per Protocol Miscellaneous Information 1 each 10/24/18 20:26 Magnesium Per Protocol MISCELLANE DAILY PRN Per Protocol Protocol Miscellaneous Information 1 each 10/24/18 20:26 Potassium Per Protocol MISCELLANE DAILY PRN Per Protocol Protocol Pantoprazole Sodium 40 mg 10/25/18 07:30 10/25/18 05:57 Protonix PO 40 mg AC-BID UZAIR Administration Potassium Chloride 20 meq 10/25/18 09:00 10/25/18 09:30 K-Dur 20 PO 20 meq DAILY UZAIR Administration Verapamil HCl 120 mg 10/25/18 09:00 10/25/18 09:29 Isoptin Sr PO 120 mg DAILY UZAIR Administration Intake and Output 10/24/18 10/25/18 10/25/18 22:59 06:59 14:59 Output Total 2500 Balance -2500 Output: Urine 2500 Other: # Voids 3 10/25/18 05:59 10/25/18 05:59 EKG Interpretations (text) EKG shows atrial fibrillation with controlled ventricular response Assessment and Plan Plan: Assessment and plan #1 symptoms of progressively worsening shortness of breath, likely combination of congestive heart failure and possible acute tracheobronchitis. COPD exacerbation. He was also noted on the patient's chest x-ray and CAT scan that there is a new large loculated right suprahilar mass which may reflect malignancy. #2 history of COPD and emphysema #3 chronic atrial fibrillation #4 hyperlipidemia #5 prior history of smoking, she quit smoking in 2017 #6 history of stress cardiomyopathy Plan We will obtain the most recent office note from cardiology's office, as well as most recent echo performed there. We will repeat an echocardiogram with Doppler study here as well. Continue , Lipitor, IV Lasix, metoprolol, replace magnesium, discontinue verapamil, we will also hold Eliquis until the patient is seen by Pulmonary service. DNP note has been reviewed, I agree with a documented findings and plan of care. Patient was seen and examined.
[2018-10-25] MEDS ORDERED: Magnesium Replacement Protocol 1 EACH MISC MISCELLANE PRN (13:09)
[2018-10-25] MEDS ORDERED: Potassium Replacement Protocol 1 EACH MISC MISCELLANE PRN (13:10)
--- NOTE | 2018-10-25 14:43 | P.CNPUL ---
History of Present Illness Consult date: 10/25/18 Requesting physician: Mecca Sorensen Reason for consult: dyspnea, hypoxemia Chief complaint: Shortness of breath, acute on chronic hypoxic respiratory failure History of present illness: This is a 78-year-old white female patient with past medical history of advanced COPD on home oxygen, past history of nicotine dependence, currently in remission for last 8-9 months, patient carries [id number] smoking history, hypertension, chronic atrial fibrillation, osteoporosis, who was brought into the hospital by EMS for evaluation of worsening shortness of breath and hypoxemia. Apparently patient was at home and she has been increasingly short of breath, she noted that her pulse ox was down to 70 on her usual 2 L of oxygen. She does have an occasional cough with some yellow phlegm production, no hemoptysis, no completely chest pain, she denies any significant weight loss, but has been having some night sweats. She follows with Dr. Leonardo from pulmonary clinic however has not seen him since June 2018. Chest x-ray was completed showing masslike density at the right pulmonary hilum, which is a change from her previous chest x-ray from February 2018. There was also pulmonary vascular congestion noted and pulmonary interstitial edema with mild blunting of costophrenic angles. Chest CT With contrast showed a large lobulated right suprahilar mass with the right paraspinal extension and no evidence for associated bony destruction with additional pulmonary nodularity. Initial blood work showed a white blood cell count of 19.8, hemoglobin of 12.2, coagulation profile was within normal limits, sodium was 137, potassium is 4.2, chloride was 94, CO2 is 34, B1 was 14, creatinine was 0.4, proBNP was elevated at 4660, troponin was negative 1, urinalysis was clear. We are consulted for a new finding of a right suprahilar pulmonary mass with additional nodularity suspicious for lung cancer Review of Systems All systems: negative Constitutional: Denies chills, Denies fever Eyes: denies blurred vision, denies pain Ears, nose, mouth and throat: Denies headache, Denies sore throat Cardiovascular: Denies chest pain, Denies shortness of breath Respiratory: Reports dyspnea, Reports home oxygen, Denies cough Gastrointestinal: Denies abdominal pain, Denies diarrhea, Denies nausea, Denies vomiting Genitourinary: Denies dysuria, Denies hematuria Musculoskeletal: Denies myalgias Integumentary: Denies pruritus, Denies rash Neurological: Denies numbness, Denies weakness Psychiatric: Denies anxiety, Denies depression Endocrine: Denies fatigue, Denies weight change Past Medical History Past Medical History: Atrial Fibrillation, Heart Failure, GERD/Reflux, Hyperlipidemia, Hypertension, Osteoarthritis (OA) Additional Past Medical History / Comment(s): chronic back pain, emphysema,pt stated she had prevnar 13 not sure of exact date,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 Rectal prolapsed. History of Any Multi-Drug Resistant Organisms: None Reported Past Surgical History: Back Surgery, Hysterectomy Additional Past Surgical History / Comment(s): cataracts Past Anesthesia/Blood Transfusion Reactions: No Reported Reaction Past Psychological History: No Psychological Hx Reported Additional Psychological History / Comment(s): pt stated lives alone in [employer] apt ([facility] in [place]) has pull cord in bathroom and security doors). has nebulizer, walker, cane. Smoking Status: Never smoker Past Alcohol Use History: None Reported Additional Past Alcohol Use History / Comment(s): started smoking age 20 adn quit 2017 smoked 1 ppd Past Drug Use History: None Reported - Past Family History Mother Family Medical History: Cancer Additional Family Medical History / Comment(s): esophageal CA Father Family Medical History: Myocardial Infarction ([place]) Medications and Allergies Home Medications Medication Instructions Recorded Confirmed Type Digoxin [Digitek] 125 mcg PO DAILY 12/07/16 10/24/18 History Ergocalciferol [Vitamin D2 50,000 unit PO Q30D 12/07/16 10/24/18 History (ESSENCE)] Potassium Chloride ER [K-Dur 20] 20 meq PO DAILY 12/07/16 10/24/18 History Atorvastatin [Lipitor] 20 mg PO DAILY tab 12/15/16 10/24/18 Rx Pantoprazole [Protonix] 40 mg PO AC-BID tablet. 12/15/16 10/24/18 Rx Calcium Carbonate [Calcium] 600 mg PO BID 02/22/18 10/24/18 History Apixaban [Eliquis] 2.5 mg PO BID tablet 03/03/18 10/24/18 Rx Albuterol Nebulized [Ventolin 2.5 mg INHALATION RT-Q4H PRN 10/24/18 10/24/18 History Nebulized] Furosemide [Lasix] 20 mg PO Q72H 10/24/18 10/24/18 History Metoprolol Succinate [Toprol XL] 25 mg PO DAILY 10/24/18 10/24/18 History Verapamil HCl [Verapamil ER] 120 mg PO DAILY 10/24/18 10/24/18 History Allergies Allergy/AdvReac Type Severity Reaction Status Date / Time Sulfa (Sulfonamide Allergy Rash/Hives Verified 10/24/18 15:01 Antibiotics) Physical Exam Vitals: Vital Signs Temp Pulse Pulse Resp BP BP Pulse Ox 10/25/18 12:00 74 16 128/66 95 10/25/18 09:10 80 10/25/18 09:02 88 10/25/18 08:00 105 H 16 119/55 99 10/25/18 03:09 98 F 88 18 135/82 95 10/24/18 23:07 85 18 142/82 96 10/24/18 20:00 98.2 F 89 18 135/76 95 10/24/18 19:34 84 10/24/18 19:28 83 10/24/18 17:55 98.4 F 89 18 111/88 95 10/24/18 16:57 98.3 F 105 H 16 150/79 93 L 10/24/18 16:45 88 18 118/68 95 10/24/18 16:00 88 18 102/72 95 10/24/18 14:53 98.6 F 91 24 94/62 93 L Intake and Output 10/24/18 10/25/18 10/25/18 22:59 06:59 14:59 Intake Total 240 Output Total 2500 475 Balance -2500 -235 Intake: Oral 240 Output: Urine 2500 475 Other: # Voids 3 GENERAL EXAM: Alert, pleasant, 78-year-old white female, tachypneic and slightly anxious on 3 L of oxygen comfortable in no apparent distress. HEAD: Normocephalic/atraumatic. EYES: Normal reaction of pupils, equal size. Conjunctiva pink, sclera white. NOSE: Clear with pink turbinates. THROAT: No erythema or exudates. NECK: No masses, no JVD, no thyroid enlargement, no adenopathy. CHEST: No chest wall deformity. Symmetrical expansion. LUNGS: Equal air entry with minimal bibasilar rales CVS: Regular rate and rhythm, normal S1 and S2, no gallops, no murmurs, no rubs ABDOMEN: Soft, nontender. No hepatosplenomegaly, normal bowel sounds, no guarding or rigidity. EXTREMITIES: No clubbing, no edema, no cyanosis, 2+ pulses and upper and lower extremities. MUSCULOSKELETAL: Muscle strength and tone normal. SPINE: No scoliosis or deformity SKIN: No rashes CENTRAL NERVOUS SYSTEM: Alert and oriented -3. No focal deficits, tone is normal in all 4 extremities. PSYCHIATRIC: Alert and oriented -3. Appropriate affect. Intact judgment and insight. Results - Laboratory Findings CBC and BMP: 10/25/18 05:59 10/25/18 05:59 PT/INR, D-dimer PT 11.5 sec (9.0-12.0) 10/24/18 15:05 INR 1.1 (<1.2) 10/24/18 15:05 Abnormal lab findings: Abnormal Labs 10/24/18 10/24/18 10/25/18 15:05 15:05 05:59 WBC 19.8 H 11.2 H RBC 3.70 L MCV 100.6 H Neutrophils # 17.5 H 9.8 H Chloride 94 L Carbon Dioxide 34 H Creatinine 0.44 L Glucose 123 H Magnesium 1.3 L Total Protein 6.1 L Albumin 3.4 L 10/25/18 05:59 WBC RBC MCV Neutrophils # Chloride 94 L Carbon Dioxide 36 H Creatinine 0.51 L Glucose 130 H Magnesium 1.4 L Total Protein Albumin - Diagnostic Findings Chest x-ray: report reviewed, image reviewed CT scan - chest: report reviewed, image reviewed Additional studies: EKG reviewed Assessment and Plan Plan: Assessment: #1. A new finding of right suprahilar mass with additional nodularity involving the right lung, highly suspicious for malignancy #2. Acute on chronic hypoxemic respiratory failure related to the above and acute congestive heart failure #3. History of advanced COPD, stage III, with baseline FEV1 of 0.62 L or 33% of predicted and DLVA of 41%, with chronic hypoxemic respiratory failure as of June 2018 #4. Chronic atrial fibrillation #5. Ex-smoker, quit smoking several months ago, carries [id number] smoking history #6. History of chronic congestive heart failure with systolic dysfunction and severely impaired left ventricular function and EF of 25-30% #7. History of rectal bleeding on Coumadin #8. GERD/reflux #9. Hypertension #10. Hyperlipidemia #11. Osteoarthritis Plan: Patient will be scheduled for a bronchoscopy with biopsies tomorrow on 10/26/2018 for biopsy of the right suprahilar mass. Nothing by mouth after midnight, continue with IV Lasix, continue empiric antibiotics, sputum for culture, continue nebulized bronchodilators. Audiology is following, echocardiogram has been ordered and is pending at this time. I performed a history & physical examination of the patient and discussed their management with my nurse practitioner, Maral Phipps. I reviewed the nurse practitioner's note and agree with the documented findings and plan of care. Lung sounds are positive for bibasilar rales. The findings and the impression was discussed with the patient. I attest to the documentation by the nurse practitioner. Time with Patient: Greater than 30
[2018-10-25] MEDS: MAGNESIUM SULFATE-D5W PMX 1 GM in DEXTROSE/WATER 1 100ML.BAG IVPB SCH ×3 (16:34→19:59)
--- NOTE | 2018-10-25 19:04 | PN ---
PROGRESS NOTE DATE OF SERVICE: 10/25/2018 This 78-year-old woman with a past medical history of multiple medical problems, followed by Dr. Marie in the outpatient setting, was admitted with shortness of breath multifactorial CHF and COPD, acute exacerbation. The patient also had a chest x- ray which showed persistent right suprahilar masslike consolidation, and a CT scan of the chest was also done which showed a large lobulated right suprahilar mass with right paraspinal extension with no evidence of associated bony destruction. Dr. Quiroga is planning bronchoscopy at this time. Cardiology is following the patient closely, also. No chest pain. No palpitations. Past medical history reviewed. REVIEW OF SYSTEMS: CARDIOVASCULAR SYSTEM: As mentioned earlier. RESPIRATORY SYSTEM: As mentioned earlier. GI: No nausea, vomiting. : No dysuria or retention. NERVOUS SYSTEM: No numbness, weakness. CURRENT MEDICATIONS: Reviewed. They include: 1. Ventolin 2.5 q.4 p.r.n. 2. Xanax 0.25 t.i.d. 3. Lipitor 20 mg p.o. daily. 4. Tums 500 mg p.o. b.i.d. 5. Lanoxin 125 mcg p.o. daily. 6. Vitamin D2, 50,000 q.30 days. 7. Lasix 20 mg b.i.d. 8. Toprol-XL 25 mg p.o. daily. 9. Replacement protocols. 10.Protonix. 11.Zosyn 3.375 IV q.8. 12.K-Dur 20 mEq p.o. daily. PHYSICAL EXAMINATION: Patient is alert, oriented x3. Pulse is 74, blood pressure 128/66, respiration 16, temperature normal, pulse ox 94% on 3 L. HEENT: Conjunctivae normal. NECK: No jugular venous distention. CARDIOVASCULAR SYSTEM: S1, S2 muffled. RESPIRATORY SYSTEM: Breath sounds diminished at the bases. A few scattered rhonchi and crackles. ABDOMEN: Soft, non-tender. No mass palpable. LEGS: No edema. No swelling. NERVOUS SYSTEM: Higher functions as mentioned earlier. Moves all 4 limbs. No focal motor or sensory deficit. LYMPHATICS: No lymph node palpable in neck, axillae or groin. SKIN: No ulcer, rash, bleeding. JOINTS: No active deforming arthropathy. LABS: WBC 11.2, hemoglobin 12.6. Sodium 137, potassium 3.5. Magnesium is 1.4. ASSESSMENT: 1. Shortness of breath, possibly multifactorial, with congestive heart failure, acute exacerbation, with acute on chronic systolic dysfunction, ejection fraction 20% to 30%, as well as chronic obstructive pulmonary disease, acute exacerbation, with acute purulent tracheobronchitis. 2. Large lobulated right suprahilar mass with right supraspinal extension with no evidence of associated bony destruction. 3. History of atrial fibrillation, chronic. 4. History of gastroesophageal reflux disease. 5. Right-sided chest pain, possibly pleuritic. 6. Hypomagnesemia. 7. Hypertension. 8. Hyperlipidemia. 9. Mild to moderate protein-calorie malnutrition with emaciation. 10.Degenerative joint disease. 11.Chronic back pain. 12.History of back pain. 13.Increased white count. RECOMMENDATIONS AND DISCUSSION: In this 78-year-old woman who presented with multiple complex medical issues, we will monitor the patient closely, continue the current management, continue with symptomatic treatment. Continue with the diuretics. Continue with the bronchodilators. Dr. Quiroga is planning bronchoscopy. Otherwise, we will continue to monitor. Cardiology and Pulmonology input appreciated. A 2D echo has been ordered. Prognosis guarded because of multiple complex medical issues. Further recommendations to follow. A copy of this dictation is being forwarded to Dr. Marie, who is the primary physician. MMLUISITOL / YO: [id number] / MTDD
[2018-10-25] MEDS: FUROSEMIDE 10 MG/ML 2 ML VIAL IV SCH (20:00)
[2018-10-26] MEDS: PANTOPRAZOLE 40 MG TABLET PO SCH ×2 (06:30→16:58)
[2018-10-26 06:38] LABS: African American GFR (CKD) >90 (>60 ml/min/1.73 sqM); Anion Gap 4 mmol/L; Blood Urea Nitrogen 20 mg/dL (7-17); Calcium 8.6 mg/dL (8.4-10.2); Carbon Dioxide 39 mmol/L (22-30); Chloride 96 mmol/L (98-107); Glucose 89 mg/dL (74-99); Potassium 4.4 mmol/L (3.5-5.1); Sodium 139 mmol/L (137-145)
[2018-10-26 06:39] LABS: Basophils % (A) 0 %; Eosinophils # (A) 0.1 k/uL (0-0.7); Eosinophils % (A) 1 %; HCT 37.8 % (34.0-46.0); HGB 12.2 gm/dL (11.4-16.0); Lymphocytes # (A) 1.5 k/uL (1.0-4.8); Lymphocytes % (A) 12 %; MCH 32.7 pg (25.0-35.0); MCHC 32.1 g/dL (31.0-37.0); MCV 101.8 fL (80.0-100.0); Macrocytosis Slight; Mean Platelet Volume 7.1; Monocytes # (A) 0.7 k/uL (0-1.0); Monocytes % (A) 6 %; Neutrophils # (A) 9.9 k/uL (1.3-7.7); Neutrophils % (A) 80 %; Platelet Count 223 k/uL (150-450); RBC 3.72 m/uL (3.80-5.40); RDW 13.8 % (11.5-15.5); WBC 12.3 k/uL (3.8-10.6)
[2018-10-26] MEDS: FUROSEMIDE 10 MG/ML 2 ML VIAL IV SCH ×2 (08:31→20:44)
[2018-10-26] MEDS: ATORVASTATIN 20 MG TAB PO SCH (08:32)
[2018-10-26] MEDS: CALCIUM CARBONATE 500 MG CHEWABLE PO SCH ×2 (08:32→20:44)
[2018-10-26] MEDS: DIGOXIN 125 MCG TAB PO SCH (08:32)
[2018-10-26] MEDS: METOPROLOL SUCCINATE (ER) 25 MG TAB.ER.24H PO SCH (08:32)
[2018-10-26] MEDS: PIPERACILLIN-TAZOBACTAM 3.375 GM in SODIUM CHLORIDE 0.9% 100 ML IVPB SCH ×3 (08:32→23:45)
[2018-10-26] MEDS: POTASSIUM CHLORIDE ER 20 MEQ TAB.ER PO SCH (08:32)
--- NOTE | 2018-10-26 09:05 | ECHOF ---
Referral Reason:chf MEASUREMENTS -------- HEIGHT: 160.0 cm WEIGHT: 52.6 kg BP: 119/55 RVIDd: 2.7 cm (< 3.3) IVSd: 1.3 cm (0.6 - 1.1) LVIDd: 4.4 cm (3.9 - 5.3) LVPWd: 1.2 cm (0.6 - 1.1) IVSs: 1.6 cm LVIDs: 3.4 cm LVPWs: 1.7 cm LA Diam: 4.9 cm (2.7 - 3.8) LAESV Index (A-L): 83.80 ml/m Ao Diam: 3.3 cm (2.0 - 3.7) AV Cusp: 1.2 cm (1.5 - 2.6) LA Diam: 5.4 cm (2.7 - 3.8) MV EXCURSION: 15.965 mm (> 18.000) MV EF SLOPE: 62 mm/s (70 - 150) EPSS: 2.0 cm MV E Cody: 0.78 m/s MV DecT: 183 ms MV A Cody: 0.01 m/s MV E/A Ratio: 99.77 RAP: 5.00 mmHg RVSP: 27.27 mmHg FINDINGS -------- Atrial fibrillation. This was a technically adequate study. The left ventricular size is normal. Left ventricular wall thickness is normal. Overall left vent ricular systolic function is low-normal with, an EF between 50 - 55 %. Left ventricular fillimg pre ssure cannot be estimated due to Atrial fibrillation. The right ventricle is normal in size. The left atrium is markedly dilated. LA is severely dilated >40 ml/m2 The right atrium is mildly enlarged. There is mild aortic valve sclerosis. There is no evidence of aortic regurgitation. Mild mitral annular calcification present. Mild mitral regurgitation is present. Mild tricuspid regurgitation present. There is no evidence of pulmonary hypertension. The right v entricular systolic pressure, as measured by Doppler, is 27.27mmHg. TV thickening. There is no pulmonic regurgitation present. The aortic root size is normal. There is no pericardial effusion. CONCLUSIONS -------- 1. Atrial fibrillation. 2. This was a technically adequate study. 3. The left ventricular size is normal. 4. Left ventricular wall thickness is normal. 5. Overall left ventricular systolic function is low-normal with, an EF between 50 - 55 %. 6. Left ventricular fillimg pressure cannot be estimated due to Atrial fibrillation. 7. The right ventricle is normal in size. 8. The left atrium is markedly dilated. 9. LA is severely dilated >40 ml/m2 10. The right atrium is mildly enlarged. 11. There is mild aortic valve sclerosis. 12. Mild mitral annular calcification present. 13. Mild mitral regurgitation is present. 14. Mild tricuspid regurgitation present. 15. There is no evidence of pulmonary hypertension. 16. The right ventricular systolic pressure, as measured by Doppler, is 27.27mmHg. 17. TV thickening. 18. There is no pulmonic regurgitation present. 19. The aortic root size is normal. 20. There is no pericardial effusion. [employer]: Juli Jorgensen RDCS
[2018-10-26] MEDS ORDERED: IPRATROPIUM-ALBUTEROL 3 ML NEB INHALATION PRN (13:20)
--- NOTE | 2018-10-26 13:25 | P.PN ---
Subjective Progress Note Date: 10/26/18 Principal diagnosis: Right suprahilar mass and nodularity involving the right lung suspicious for malignancy This is a 78-year-old white female patient with past medical history of advanced COPD on home oxygen, past history of nicotine dependence, currently in remission for last 8-9 months, patient carries [id number] smoking history, hypertension, chronic atrial fibrillation, osteoporosis, who was brought into the hospital by EMS for evaluation of worsening shortness of breath and hypoxemia. Apparently patient was at home and she has been increasingly short of breath, she noted that her pulse ox was down to 70 on her usual 2 L of oxygen. She does have an occasional cough with some yellow phlegm production, no hemoptysis, no completely chest pain, she denies any significant weight loss, but has been having some night sweats. She follows with Dr. Leonardo from pulmonary clinic however has not seen him since June 2018. Chest x-ray was completed showing masslike density at the right pulmonary hilum, which is a change from her previous chest x-ray from February 2018. There was also pulmonary vascular congestion noted and pulmonary interstitial edema with mild blunting of costophrenic angles. Chest CT With contrast showed a large lobulated right suprahilar mass with the right paraspinal extension and no evidence for associated bony destruction with additional pulmonary nodularity. Initial blood work showed a white blood cell count of 19.8, hemoglobin of 12.2, coagulation profile was within normal limits, sodium was 137, potassium is 4.2, chloride was 94, CO2 is 34, B1 was 14, creatinine was 0.4, proBNP was elevated at 4660, troponin was negative 1, urinalysis was clear. We are consulted for a new finding of a right suprahilar pulmonary mass with additional nodularity suspicious for lung cancer On 10/26/2018 patient seen in follow-up on selective care unit, she is awake and alert, less tachypneic and less dyspneic on today's exam, no acute distress, remains on 2 L of oxygen with a pulse ox of 94-97%, afebrile, does have exertional dyspnea, occasional cough with production of yellow sputum. Interventional radiology has agreed to put the patient on a schedule for fine- needle biopsy of the right suprahilar mass for tomorrow. This was discussed with the patient was agreeable to proceed. Today's labs have been reviewed. No new chest x-rays. Remains on IV diuretics. Zosyn for antibiotic coverage, patient has been afebrile, sputum culture is pending, blood culture is negative at 24 hour kade Objective - Vital Signs Vital signs: Vital Signs Temp 98 F 10/26/18 08:00 Pulse 87 10/26/18 12:00 Resp 16 10/26/18 12:00 BP 155/68 10/26/18 12:00 Pulse Ox 97 10/26/18 12:00 Intake & Output 10/25/18 10/26/18 10/26/18 18:59 06:59 18:59 Intake Total 960 20 100 Output Total 775 1300 Balance 185 -1280 100 Weight 50.8 kg Intake: IV 20 Invasive Line 1 20 Intake, IV Titration 100 Amount Piperacillin-Tazobactam 3 100 .375 gm In Sodium Chloride 0.9% 100 ml @ 25 mls/hr IVPB Q8HR [facility] Rx# :[id number] Oral 960 Output: Urine 775 1300 Other: Voiding Method Bedside Commode Bedside Commode # Voids 1 # Bowel Movements 1 - Exam GENERAL EXAM: Alert, pleasant, 78-year-old white female, tachypneic and s lightly anxious on 2 L of oxygen comfortable in no apparent distress. HEAD: Normocephalic/atraumatic. EYES: Normal reaction of pupils, equal size. Conjunctiva pink, sclera white. NOSE: Clear with pink turbinates. THROAT: No erythema or exudates. NECK: No masses, no JVD, no thyroid enlargement, no adenopathy. CHEST: No chest wall deformity. Symmetrical expansion. LUNGS: Equal air entry with minimal bibasilar rales CVS: Regular rate and rhythm, normal S1 and S2, no gallops, no murmurs, no rubs ABDOMEN: Soft, nontender. No hepatosplenomegaly, normal bowel sounds, no guarding or rigidity. EXTREMITIES: No clubbing, no edema, no cyanosis, 2+ pulses and upper and lower extremities. MUSCULOSKELETAL: Muscle strength and tone normal. SPINE: No scoliosis or deformity SKIN: No rashes CENTRAL NERVOUS SYSTEM: Alert and oriented -3. No focal deficits, tone is normal in all 4 extremities. PSYCHIATRIC: Alert and oriented -3. Appropriate affect. Intact judgment and insight. - Labs CBC & Chem 7: 10/26/18 05:31 10/26/18 05:31 Labs: Abnormal Lab Results - Last 24 Hours (Table) 10/26/18 10/26/18 Range/Units 05:31 05:31 WBC 12.3 H (3.8-10.6) k/uL RBC 3.72 L (3.80-5.40) m/uL MCV 101.8 H (80.0-100.0) fL Neutrophils # 9.9 H (1.3-7.7) k/uL Chloride 96 L (98-107) mmol/L Carbon Dioxide 39 H (22-30) mmol/L BUN 20 H (7-17) mg/dL Microbiology - Last 24 Hours (Table) 10/25/18 17:00 Gram Stain - Preliminary Sputum 10/24/18 16:20 Blood Culture - Preliminary Blood No Growth after 24 hours Assessment and Plan Plan: Assessment: #1. A new finding of right suprahilar mass with additional nodularity involving the right lung, highly suspicious for malignancy #2. Acute on chronic hypoxemic respiratory failure related to the above and acute congestive heart failure #3. History of advanced COPD, stage III, with baseline FEV1 of 0.62 L or 33% of predicted and DLVA of 41%, with chronic hypoxemic respiratory failure as of June 2018 #4. Chronic atrial fibrillation #5. Ex-smoker, quit smoking several months ago, carries [id number] smoking history #6. History of chronic congestive heart failure with systolic dysfunction and severely impaired left ventricular function and EF of 25-30% #7. History of rectal bleeding on Coumadin #8. GERD/reflux #9. Hypertension #10. Hyperlipidemia #11. Osteoarthritis Plan: Bronchoscopy with biopsy was canceled for today, and instead interventional radiology has agreed to proceed with the CT-guided fine-needle biopsy of suprahilar mass. We'll add breathing treatments, continue the Lasix, continue current antibiotics, will add oral prednisone, and Symbicort, will await final cultures of the sputum and blood cultures. Patient has been afebrile. The plan Has been discussed with the patient was agreeable to proceed. I performed a history & physical examination of the patient and discussed their management with my nurse practitioner, Maral Phipps. I reviewed the nurse practitioner's note and agree with the documented findings and plan of care. Lung sounds are positive for bibasilar rales. The findings and the impression was discussed with the patient. I attest to the documentation by the nurse practitioner. Time with Patient: Less than 30
[2018-10-26] MEDS: IPRATROPIUM-ALBUTEROL 3 ML NEB INHALATION PRN ×2 (15:53→19:23)
[2018-10-26] MEDS: predniSONE 20 MG TAB PO SCH (16:58)
[2018-10-26] MEDS: SYMBICORT 160-4.5 MCG INHALER INHALATION SCH (19:23)
--- NOTE | 2018-10-26 19:46 | PN ---
PROGRESS NOTE DATE OF SERVICE: 10/26/2018. This 78-year-old woman with a past medical history of multiple medical problems was admitted with shortness of breath which was multifactorial with CHF, acute exacerbation, as well as COPD, acute exacerbation. The patient also had a large lobulated right suprahilar mass. Fine needle aspiration biopsy is being planned by Dr. Quiroga. No chest pain. No palpitations. No fever. PHYSICAL EXAMINATION: Alert and oriented x3. Pulse 87, blood pressure 155/60, respirations 16, temperature normal, pulse ox 97% on room air. HEENT: Conjunctivae normal. NECK: No jugular venous distention. CARDIOVASCULAR SYSTEM: S1, S2 muffled. RESPIRATORY SYSTEM: Breath sounds diminished at the bases. A few scattered rhonchi. No crackles. ABDOMEN: Soft, non-tender. LEGS: No edema. No swelling. NERVOUS SYSTEM: No focal deficit. LABS: WBC 12.3, hemoglobin 12.2, MCV 101.8, sodium 139, potassium 4.4. ASSESSMENT: 1. Shortness of breath, possibly multifactorial, with congestive heart failure, acute exacerbation, with acute on chronic systolic dysfunction, ejection fraction 20% to 30%, as well as chronic obstructive pulmonary disease, acute exacerbation, with acute purulent tracheobronchitis. 2. Large lobulated right suprahilar mass with right supraspinal extension with no evidence of associated bony destruction. 3. History of atrial fibrillation, chronic. 4. History of gastroesophageal reflux disease. 5. Right-sided chest pain, possibly pleuritic. 6. Hypomagnesemia. 7. Hypertension. 8. Hyperlipidemia. 9. Mild to moderate protein-calorie malnutrition with emaciation. 10.Degenerative joint disease and chronic back pain. 11.Increased white count. RECOMMENDATIONS AND DISCUSSION: I recommend to continue current medications, continue with the monitoring, symptomatic treatment. Fine needle aspiration biopsy. I also recommend hematology/oncology evaluation. Guarded prognosis because of multiple complex medical issues. Further recommendations to follow. MMODL / IJN: [id number] /
--- NOTE | 2018-10-26 22:40 | PN ---
PROGRESS NOTE This patient is admitted with acute exacerbation of COPD. CT scan shows evidence of hilar mass. Patient is undergoing percutaneous and needle biopsies. She is feeling better, comfortable. She continues to have some productive cough. Blood pressure is 116/64 mmHg. Heart rate is 80 per minute. First and second heart sounds are heard. Lungs reveal bilateral rhonchi. ASSESSMENT AND PLAN: 1. Acute exacerbation of chronic obstructive pulmonary disease. 2. Right hilar mass, needs further evaluation. MMODL / IJN: [id number] /
[2018-10-27 06:12] LABS: Basophils % (A) 0 %; Eosinophils % (A) 0 %; HCT 37.4 % (34.0-46.0); Lymphocytes # (A) 1.1 k/uL (1.0-4.8); Lymphocytes % (A) 14 %; MCH 32.4 pg (25.0-35.0); MCV 101.4 fL (80.0-100.0); Macrocytosis Slight; Mean Platelet Volume 7.2; Monocytes # (A) 0.4 k/uL (0-1.0); Monocytes % (A) 6 %; Neutrophils # (A) 5.9 k/uL (1.3-7.7); Neutrophils % (A) 79 %; Platelet Count 230 k/uL (150-450); RBC 3.69 m/uL (3.80-5.40); RDW 13.8 % (11.5-15.5); WBC 7.4 k/uL (3.8-10.6)
[2018-10-27 06:18] LABS: African American GFR (CKD) >90 (>60 ml/min/1.73 sqM); Anion Gap 5 mmol/L; Blood Urea Nitrogen 15 mg/dL (7-17); Calcium 8.6 mg/dL (8.4-10.2); Carbon Dioxide 37 mmol/L (22-30); Chloride 92 mmol/L (98-107); Glucose 114 mg/dL (74-99); Potassium 4.3 mmol/L (3.5-5.1); Sodium 134 mmol/L (137-145)
[2018-10-27] MEDS: PANTOPRAZOLE 40 MG TABLET PO SCH ×2 (06:33→18:32)
[2018-10-27 08:30] LABS: INR 0.9 (<1.2)
[2018-10-27] MEDS: SYMBICORT 160-4.5 MCG INHALER INHALATION SCH ×2 (09:47→20:28)
--- NOTE | 2018-10-27 10:28 | XR ---
EXAMINATION TYPE: XR chest 1V portable DATE OF EXAM: 10/27/2018 Comparison: CT 10/25/2018 Clinical History: 78-year-old female post right lung biopsy Findings: Heart normal size. Hyperinflation with interstitial prominence. Continued patchy left basilar opacity . Known right hilar mass. No appreciable pneumothorax. Smaller right basilar pulmonary nodule. Impression: 1. COPD with known right hilar mass. No appreciable pneumothorax. Consider a delayed follow-up for re assessment. 2. Persistent patchy infiltrate at the left base and known right basilar pulmonary nodule.
[2018-10-27] MEDS: PIPERACILLIN-TAZOBACTAM 3.375 GM in SODIUM CHLORIDE 0.9% 100 ML IVPB SCH ×3 (10:44→23:02)
[2018-10-27] MEDS: FUROSEMIDE 10 MG/ML 2 ML VIAL IV SCH ×2 (10:45→20:03)
[2018-10-27] MEDS: CALCIUM CARBONATE 500 MG CHEWABLE PO SCH ×2 (10:46→20:03)
[2018-10-27] MEDS: METOPROLOL SUCCINATE (ER) 25 MG TAB.ER.24H PO SCH (10:46)
[2018-10-27] MEDS: predniSONE 20 MG TAB PO SCH (10:46)
[2018-10-27] MEDS: ATORVASTATIN 20 MG TAB PO SCH (10:46)
[2018-10-27] MEDS: DIGOXIN 125 MCG TAB PO SCH (10:46)
[2018-10-27] MEDS: ALPRAZolam 0.25 MG TAB PO PRN (10:46)
[2018-10-27] MEDS: IPRATROPIUM-ALBUTEROL 3 ML NEB INHALATION PRN (11:27)
[2018-10-27] MEDS ORDERED: ACETAMINOPHEN TAB 500 MG TAB PO PRN (12:07)
[2018-10-27] MEDS ORDERED: HYDROcodone/APAP 5-325MG 1 EACH TAB PO PRN (12:07)
--- NOTE | 2018-10-27 13:22 | XR ---
EXAMINATION TYPE: XR chest 1V portable DATE OF EXAM: 10/27/2018 COMPARISON: 10/27/2017 chest x-ray of 10:15 AM HISTORY: Right-sided lung biopsy. TECHNIQUE: Single frontal view of the chest is obtained. FINDINGS: Right suprahilar mass is intimately associated with the mediastinal border at the level of the aorticopulmonary window in the right hemithorax. No definitive pneumothorax is seen although the re is a paucity of lung markings in the lateral aspect of the right lung apex. No discrete visceral p leural line is noted. Strand-like atelectasis is seen at the lung bases. Diffuse osseous demineraliza tion is noted. IMPRESSION: No postprocedural pneumothorax is seen.
--- NOTE | 2018-10-27 14:54 | CT ---
EXAMINATION TYPE: CT guided FNA first lesion DATE OF EXAM: 10/27/2018 HISTORY: Lung mass COMPARISON: CT 10/25/2018 Maximal barrier technique was utilized. The skin overlying a suitable path to the lesion in the righ t upper lobe was localized using CT and the overlying skin was prepped and draped. Lidocaine used fo r local anesthesia. A skin ilir made with a scalpel. Using CT guidance, access was gained to the le meghana with a 22-gauge needle through a 19-gauge guide following instillation of hydrodissection, steri le saline, approximately 5 cc. Aspirated specimen submitted to cytology. 4 passes were performed in all. Following the procedure no immediate complications. The patient is discharged in stable cond ition. Hemostasis achieved. DLP 429 mGycm IMPRESSION: SUCCESSFUL CT GUIDED BIOPSY. PATHOLOGY PENDING. THIS PROCEDURE WAS PERFORMED BY THE UNDERSIGNED. Po stprocedure chest x-rays pending.
--- NOTE | 2018-10-27 15:14 | P.PN ---
Subjective Progress Note Date: 10/27/18 Principal diagnosis: This is an 78-year-old female who was recently admitted for acute exacerbation of COPD as well as CHF with acute exacerbation and is being closely monitored. Patient has a large lobulated right suprahilar mass and patient underwent needle aspiration biopsy this morning. Patient denies any chest pain or palpitations at this time but is having some generalized pain. Patient denies any nausea or vomiting and was nothing by mouth prior to the procedure. Patient is awaiting lunch at this time. Patient remains afebrile. Daughter was at the bedside but has just left. PT/OT are following. Patient is very weak and unable to walk much per PT at this time. Will continue to encourage working with PT/OT. Patient states that she is having some shortness of breath still at this time with exertion. Patient is normally O2 dependent at 2 L via nasal cannula. Objective - Vital Signs Vital signs: Vital Signs Temp 97.6 F 10/27/18 12:58 Pulse 108 H 10/27/18 12:58 Resp 20 10/27/18 12:58 BP 96/57 10/27/18 12:58 Pulse Ox 100 10/27/18 12:58 Intake & Output 10/26/18 10/27/18 10/27/18 18:59 06:59 18:59 Intake Total 340 150 840 Output Total 1500 Balance 340 -1350 840 Weight 50.2 kg Intake: Intake, IV Titration 100 Amount Piperacillin-Tazobactam 3 100 .375 gm In Sodium Chloride 0.9% 100 ml @ 25 mls/hr IVPB Q8HR [facility] Rx# :[id number] Oral 240 150 840 Output: Urine 1500 Other: Voiding Method Bedside Commode Bedside Commode # Voids 2 3 # Bowel Movements 1 - Exam Gen: This is a 78-year-old female sitting up in bed in no acute distress. Vital signs are stable. Temperature is 97.6F, pulse is 108, respirations are 20, blood pressure is 96/57, oxygen saturation is 100% on 3 L nasal cannula. HEENT: Head is atraumatic, normocephalic. Pupils equal, round. Sclerae is anicteric. NECK: Supple. No JVD. No lymphadenopathy. No thyromegaly. LUNGS: Diminished breath sounds at the bases with a few scattered rhonchi. No wheezes or crackles noted. No intercostal retractions. HEART: Regular rate and rhythm. No murmur. ABDOMEN: Soft. Bowel sounds are present. No masses. No tenderness. EXTREMITIES: No pedal edema. No calf tenderness. NEUROLOGICAL: Patient is awake, alert and oriented x3. Cranial nerves 2 through 12 are grossly intact. - Labs CBC & Chem 7: 10/27/18 05:40 10/27/18 05:40 Labs: Abnormal Lab Results - Last 24 Hours (Table) 10/27/18 10/27/18 Range/Units 05:40 05:40 RBC 3.69 L (3.80-5.40) m/uL MCV 101.4 H (80.0-100.0) fL Sodium 134 L (137-145) mmol/L Chloride 92 L (98-107) mmol/L Carbon Dioxide 37 H (22-30) mmol/L Creatinine 0.48 L (0.52-1.04) mg/dL Glucose 114 H (74-99) mg/dL Microbiology - Last 24 Hours (Table) 10/24/18 16:20 Blood Culture - Preliminary Blood No Growth after 48 hours Assessment and Plan Assessment: Shortness of breath, possibly multifactorial, with congestive heart failure, acute exacerbation with acute on chronic systolic dysfunction, ejection fraction 20-30%, as well as chronic obstructive pulmonary disease, acute exacerbation, with acute purulent tracheobronchitis Large lobulated right suprahilar mass with right supraspinal extension with no evidence of associated bony destruction. Patient underwent fine-needle aspiration biopsy this morning. Report is pending. History of atrial fibrillation, chronic History of gastroesophageal reflux disease Right-sided chest pain, possibly pleuritic Hypomagnesemia Hypertension Hyperlipidemia Mild to moderate protein-calorie malnutrition with emaciation Degenerative joint disease and chronic back pain Increased WBC Recommendations and discussion: Recommend to continue current medications and symptomatic treatment. Will continue to monitor closely. Fine-needle aspiration biopsy was performed today and awaiting report at this time. Hematology/oncology were consulted and awaiting at this time. Due to multiple complex medical issues prognosis is guarded. Discussed with the patient today about discharge plans and discuss possible rehab upon discharge. Patient is agreeable to [facility]. Further recommendations to follow.
--- NOTE | 2018-10-27 15:38 | P.PN ---
Subjective Progress Note Date: 10/27/18 Principal diagnosis: Right suprahilar mass and nodularity involving the right lung suspicious for malignancy This is a 78-year-old white female patient with past medical history of advanced COPD on home oxygen, past history of nicotine dependence, currently in remission for last 8-9 months, patient carries [id number] smoking history, hypertension, chronic atrial fibrillation, osteoporosis, who was brought into the hospital by EMS for evaluation of worsening shortness of breath and hypoxemia. Apparently patient was at home and she has been increasingly short of breath, she noted that her pulse ox was down to 70 on her usual 2 L of oxygen. She does have an occasional cough with some yellow phlegm production, no hemoptysis, no completely chest pain, she denies any significant weight loss, but has been having some night sweats. She follows with Dr. Leonardo from pulmonary clinic however has not seen him since June 2018. Chest x-ray was completed showing masslike density at the right pulmonary hilum, which is a change from her previous chest x-ray from February 2018. There was also pulmonary vascular congestion noted and pulmonary interstitial edema with mild blunting of costophrenic angles. Chest CT With contrast showed a large lobulated right suprahilar mass with the right paraspinal extension and no evidence for associated bony destruction with additional pulmonary nodularity. Initial blood work showed a white blood cell count of 19.8, hemoglobin of 12.2, coagulation profile was within normal limits, sodium was 137, potassium is 4.2, chloride was 94, CO2 is 34, B1 was 14, creatinine was 0.4, proBNP was elevated at 4660, troponin was negative 1, urinalysis was clear. We are consulted for a new finding of a right suprahilar pulmonary mass with additional nodularity suspicious for lung cancer On 10/26/2018 patient seen in follow-up on selective care unit, she is awake and alert, less tachypneic and less dyspneic on today's exam, no acute distress, remains on 2 L of oxygen with a pulse ox of 94-97%, afebrile, does have exertional dyspnea, occasional cough with production of yellow sputum. Interventional radiology has agreed to put the patient on a schedule for fine- needle biopsy of the right suprahilar mass for tomorrow. This was discussed with the patient was agreeable to proceed. Today's labs have been reviewed. No new chest x-rays. Remains on IV diuretics. Zosyn for antibiotic coverage, patient has been afebrile, sputum culture is pending, blood culture is negative at 24 hour kade On 10/27/2018 patient seen in follow-up on selective care unit. Patient had a successful CT-guided biopsy of the right suprahilar lung mass, pathology is pending. Clinically she is stable, she is currently on 3 L of oxygen with a pulse ox of 100%, no fever or chills, vital signs are stable. No compressive chest pain, no sputum cultures remain negative thus far. Patient continues on IV Lasix, nebulized bronchodilators, and empiric antibiotics. She is maintaining negative fluid balance. Clinically stable, she can probably be considered for discharge home tomorrow with outpatient follow-up in regards to fine-needle biopsy results Objective - Vital Signs Vital signs: Vital Signs Temp 97.6 F 10/27/18 12:58 Pulse 108 H 10/27/18 12:58 Resp 20 10/27/18 12:58 BP 96/57 10/27/18 12:58 Pulse Ox 100 10/27/18 12:58 Intake & Output 10/26/18 10/27/18 10/27/18 18:59 06:59 18:59 Intake Total 340 150 840 Output Total 1500 Balance 340 -1350 840 Weight 50.2 kg Intake: Intake, IV Titration 100 Amount Piperacillin-Tazobactam 3 100 .375 gm In Sodium Chloride 0.9% 100 ml @ 25 mls/hr IVPB Q8HR COUNT INCLUDES THE [facility] Rx# :[id number] Oral 240 150 840 Output: Urine 1500 Other: Voiding Method Bedside Commode Bedside Commode # Voids 2 3 # Bowel Movements 1 - Exam GENERAL EXAM: Alert, pleasant, 78-year-old white female, tachypneic and slightly anxious on 2 L of oxygen comfortable in no apparent distress. HEAD: Normocephalic/atraumatic. EYES: Normal reaction of pupils, equal size. Conjunctiva pink, sclera white. NOSE: Clear with pink turbinates. THROAT: No erythema or exudates. NECK: No masses, no JVD, no thyroid enlargement, no adenopathy. CHEST: No chest wall deformity. Symmetrical expansion. LUNGS: Equal air entry with minimal bibasilar rales CVS: Regular rate and rhythm, normal S1 and S2, no gallops, no murmurs, no rubs ABDOMEN: Soft, nontender. No hepatosplenomegaly, normal bowel sounds, no guarding or rigidity. EXTREMITIES: No clubbing, no edema, no cyanosis, 2+ pulses and upper and lower extremities. MUSCULOSKELETAL: Muscle strength and tone normal. SPINE: No scoliosis or deformity SKIN: No rashes CENTRAL NERVOUS SYSTEM: Alert and oriented -3. No focal deficits, tone is normal in all 4 extremities. PSYCHIATRIC: Alert and oriented -3. Appropriate affect. Intact judgment and insight. - Labs CBC & Chem 7: 10/27/18 05:40 10/27/18 05:40 Labs: Abnormal Lab Results - Last 24 Hours (Table) 10/27/18 10/27/18 Range/Units 05:40 05:40 RBC 3.69 L (3.80-5.40) m/uL MCV 101.4 H (80.0-100.0) fL Sodium 134 L (137-145) mmol/L Chloride 92 L (98-107) mmol/L Carbon Dioxide 37 H (22-30) mmol/L Creatinine 0.48 L (0.52-1.04) mg/dL Glucose 114 H (74-99) mg/dL Microbiology - Last 24 Hours (Table) 10/24/18 16:20 Blood Culture - Preliminary Blood No Growth after 48 hours Assessment and Plan Plan: Assessment: #1. A new finding of right suprahilar mass with additional nodularity involving the right lung, highly suspicious for malignancy, status post fine-needle CT- guided biopsy pathology pending #2. Acute on chronic hypoxemic respiratory failure related to the above and acute congestive heart failure #3. History of advanced COPD, stage III, with baseline FEV1 of 0.62 L or 33% of predicted and DLVA of 41%, with chronic hypoxemic respiratory failure as of June 2018 #4. Chronic atrial fibrillation #5. Ex-smoker, quit smoking several months ago, carries [id number] smoking history #6. History of chronic congestive heart failure with systolic dysfunction and severely impaired left ventricular function and EF of 25-30% #7. History of rectal bleeding on Coumadin #8. GERD/reflux #9. Hypertension #10. Hyperlipidemia #11. Osteoarthritis Plan: Continue with current medical treatment, awaiting pathology of the fine-needle CT-guided biopsy of the right suprahilar mass. Clinically stable, no worsening dyspnea. Vital signs are stable. From pulmonary perspective patient is stable for discharge home tomorrow on oral antibiotics, prednisone taper, and oral Lasix, with outpatient follow-up with Dr. Leonardo regarding the results of the biopsy. We'll continue to follow I performed a history & physical examination of the patient and discussed their management with my nurse practitioner, Maral Phipps. I reviewed the nurse practitioner's note and agree with the documented findings and plan of care. Lung sounds are positive for bibasilar rales. The findings and the impression was discussed with the patient. I attest to the documentation by the nurse practitioner. Time with Patient: Less than 30
--- NOTE | 2018-10-27 17:29 | MR ---
EXAMINATION TYPE: MR thoracic spine wo/w con DATE OF EXAM: 10/27/2018 COMPARISON: None HISTORY: lung mass/nodules CONTRAST: Standard multiplanar, multisequence MRI departmental protocol utilizing 5 mL intravenous Gadavist vern olinium contrast. FINDINGS: There is mild thoracic dextroscoliosis. There is degenerative disc space narrowing througho ut the thoracic spine. There is no compression fracture. Thoracic spinal cord has fairly normal signa l pattern. There is no edema. There is some spurring of the endplates posteriorly throughout the thor acic spine without significant impingement on the thoracic spinal cord. There is no evidence of thora cic paraspinal mass. I see no focal bone destruction. Contrast images show no pathologic enhancement. IMPRESSION: Multilevel spondylotic changes. No compression fracture. No evidence of metastatic disease.
--- NOTE | 2018-10-27 17:32 | MR ---
EXAMINATION TYPE: MR brain wo/w con DATE OF EXAM: 10/27/2018 COMPARISON: None HISTORY: lung mass/nodules TECHNIQUE: Multiplanar, multisequence images of the brain and brainstem is performed without and with IV contras t, utilizing 5 mL intravenous Gadavist . FINDINGS: There is cerebral cortical atrophy. There is no mass effect nor midline shift. There is no evidence o f intracranial hemorrhage. There is slight thinning of the corpus callosum. Sella turcica appears nor mal. There is no evidence of cortical infarct. On the T2 and FLAIR images there is coalescent patchy increased signal in the periventricular white matter. There is also 1 cm focus of increased signal in the right side of the severino. There is mucosal thickening right mastoid sinus with increased fluid signal. The contrast images show no pathologic enhancement. There is normal enhancement of the venous sinuses . IMPRESSION: Cerebral atrophy. Extensive white matter changes consistent with chronic small vessel ischemia or dem yelinating disease. No evidence of cortical infarct. No evidence of intracranial metastatic disease. Right-sided mastoiditis.
--- NOTE | 2018-10-27 18:33 | P.PN ---
Progress Note - Text Progress Note Date: 10/27/18 Patient was off the unit for biopsy when we came to the room. Patient's daughter was there and had questions. Dr. Conti discussed with her concern for this right hilar mass highly suspicious for malignancy, most likely a lung cancer. Of the information that was available there is concern for this mass invading the patient's spine. Daughter did not mention her mother complaining of any pain at the spine. Daughter stated that she has noted wt loss, increased frailty, weakness and some confusing. Explained that diagnosis comes from the pathology report and prognosis comes from completion of staging. Treatment modalities that can be utilized are variable and are better discussed with more info. MRI of the brain for staging is being ordered. PET scan will be ordered outpatient. MRI of the T-spine was requested as there are concerns on the CT scan that that right hilar mass might be invading the spine. All of the patient's daughter's questions were answered to the best of our ability with the information available. We will follow up and do formal consult in the a.m. Doctor attests: I performed a history and physical examination of this patient, developed impression and plan of care, discussed with dictator. I agree with dictators note, documented as a scribe.
--- NOTE | 2018-10-27 20:10 | PN ---
PROGRESS NOTE This patient is admitted with acute of chronic COPD. The patient has a history of chronic atrial fibrillation. The patient underwent needle aspiration biopsy of the mass in the right lung. Repeat chest x-ray does not show any significant pneumothorax. Blood pressure is 128/61 mmHg. First and second heart sounds are normal. Lung examination reveals bilateral scattered rhonchi. Continue the current medications. We will switch the patient to oral Lasix tomorrow. MMODL / IJN: [id number] /
[2018-10-28] MEDS: PANTOPRAZOLE 40 MG TABLET PO SCH ×2 (06:52→17:43)
[2018-10-28 08:26] LABS: African American GFR (CKD) >90 (>60 ml/min/1.73 sqM); Anion Gap 6 mmol/L; Blood Urea Nitrogen 18 mg/dL (7-17); Calcium 8.6 mg/dL (8.4-10.2); Carbon Dioxide 38 mmol/L (22-30); Chloride 92 mmol/L (98-107); Glucose 77 mg/dL (74-99); Magnesium 1.8 mg/dL (1.6-2.3); Sodium 136 mmol/L (137-145)
[2018-10-28] MEDS: MAGNESIUM SULFATE-D5W PMX 1 GM in DEXTROSE/WATER 1 100ML.BAG IVPB SCH ×2 (08:43→10:12)
[2018-10-28] MEDS: METOPROLOL SUCCINATE (ER) 25 MG TAB.ER.24H PO SCH (08:44)
[2018-10-28] MEDS: FUROSEMIDE 10 MG/ML 2 ML VIAL IV SCH (08:44)
[2018-10-28] MEDS: ATORVASTATIN 20 MG TAB PO SCH (08:44)
[2018-10-28] MEDS: POTASSIUM CHLORIDE ER 20 MEQ TAB.ER PO SCH (08:44)
[2018-10-28] MEDS: DIGOXIN 125 MCG TAB PO SCH (08:45)
[2018-10-28] MEDS: CALCIUM CARBONATE 500 MG CHEWABLE PO SCH ×2 (08:45→19:38)
[2018-10-28] MEDS: predniSONE 20 MG TAB PO SCH (08:45)
[2018-10-28] MEDS: PIPERACILLIN-TAZOBACTAM 3.375 GM in SODIUM CHLORIDE 0.9% 100 ML IVPB SCH ×2 (09:07→15:54)
[2018-10-28] MEDS: IPRATROPIUM-ALBUTEROL 3 ML NEB INHALATION PRN ×2 (09:10→20:07)
[2018-10-28] MEDS: SYMBICORT 160-4.5 MCG INHALER INHALATION SCH ×2 (09:10→20:07)
--- NOTE | 2018-10-28 11:16 | P.CONS ---
History of Present Illness - Reason for Consult Consult date: 10/28/18 lung mass Requesting physician: Mecca Sorensen - Chief Complaint BRENNEN - History of Present Illness Mrs. Pierson is a very pleasant 78-year-old female who is signifi cantly hard of hearing admitted for progressive shortness of breath. She has end-stage COPD. On admission she had imaging studies which showed a right upper lobe mass that look like it could possibly be invading the thoracic spine area. His had CT-guided FNA of the mass, pending pathology. MRI of the spine did not show any invasion of the tumor into the spine or the spinal cord, MRI of the bra in was negative. Patient describes approximately 10-12 pound weight loss in the last 2 months, she has had pain in the shoulders that is new for her, that are persisting, not necessarily progressive. She denies fevers, sweats, no hemoptysis, abdominal pain, bloating or cramping, acute changes in bowel or bladder habits, bilateral lower extremity swelling, no other pain to report. She is able to sit at the bedside independently. She had 1 person assist to the bedside commode. Review of Systems 14 point ROS is negative except as stated in HPI Past Medical History Past Medical History: Atrial Fibrillation, Heart Failure, GERD/Reflux, Hyperlipidemia, Hypertension, Osteoarthritis (OA) Additional Past Medical History / Comment(s): chronic back pain, emphysema,pt stated she had prevnar 13 not sure of exact date,policy writer unable to verify date at time of admit. Rectal prolapsed. History of Any Multi-Drug Resistant Organisms: None Reported Past Surgical History: Back Surgery, Hysterectomy Additional Past Surgical History / Comment(s): cataracts Past Anesthesia/Blood Transfusion Reactions: No Reported Reaction Past Psychological History: No Psychological Hx Reported Additional Psychological History / Comment(s): pt stated lives alone in [facility] ([facility] in [place]) has pull cord in bathroom and security doors). has nebulizer, walker, cane. Smoking Status: Never smoker Past Alcohol Use History: None Reported Additional Past Alcohol Use History / Comment(s): started smoking age 20 adn quit 2017 smoked 1 ppd Past Drug Use History: None Reported - Past Family History Mother Family Medical History: Cancer Additional Family Medical History / Comment(s): esophageal CA Father Family Medical History: Myocardial Infarction ([place]) Medications and Allergies Home Medications Medication Instructions Recorded Confirmed Type Digoxin [Digitek] 125 mcg PO DAILY 12/07/16 10/24/18 History Ergocalciferol [Vitamin D2 50,000 unit PO Q30D 12/07/16 10/24/18 History (ESSENCE)] Potassium Chloride ER [K-Dur 20] 20 meq PO DAILY 12/07/16 10/24/18 History Atorvastatin [Lipitor] 20 mg PO DAILY tab 12/15/16 10/24/18 Rx Pantoprazole [Protonix] 40 mg PO AC-BID tablet.dr 12/15/16 10/24/18 Rx Calcium Carbonate [Calcium] 600 mg PO BID 02/22/18 10/24/18 History Apixaban [Eliquis] 2.5 mg PO BID tablet 03/03/18 10/24/18 Rx Albuterol Nebulized [Ventolin 2.5 mg INHALATION RT-Q4H PRN 10/24/18 10/24/18 History Nebulized] Furosemide [Lasix] 20 mg PO Q72H 10/24/18 10/24/18 History Metoprolol Succinate [Toprol XL] 25 mg PO DAILY 10/24/18 10/24/18 History Verapamil HCl [Verapamil ER] 120 mg PO DAILY 10/24/18 10/24/18 History Allergies Allergy/AdvReac Type Severity Reaction Status Date / Time Sulfa (Sulfonamide Allergy Rash/Hives Verified 10/24/18 15:01 Antibiotics) Physical Exam Vitals: Vital Signs Temp Pulse Pulse Resp BP BP Pulse Ox 10/28/18 09:59 20 10/28/18 09:24 76 10/28/18 09:10 68 10/28/18 08:07 97.6 F 68 26 H 132/74 94 L 10/28/18 07:46 97.1 F L 80 19 134/77 93 L 10/28/18 04:00 97.6 F 74 18 116/84 92 L 10/27/18 23:52 98.4 F 71 17 108/67 94 L 10/27/18 19:58 98 F 85 18 93/56 99 10/27/18 15:15 97.9 F 82 20 99/69 96 10/27/18 13:15 98 20 101/57 98 10/27/18 12:58 97.6 F 108 H 20 96/57 100 10/27/18 11:58 77 20 103/67 91 L 10/27/18 11:39 90 10/27/18 11:30 90 10/27/18 11:28 99 20 115/63 93 L 10/27/18 10:58 90 20 115/72 93 L Intake and Output 10/27/18 10/28/18 10/28/18 22:59 06:59 14:59 Intake Total 600 100 240 Output Total 800 1000 Balance -200 -900 240 Intake: Intake, IV Titration 100 100 Amount Piperacillin-Tazobactam 3 100 100 .375 gm In Sodium Chloride 0.9% 100 ml @ 25 mls/hr IVPB Q8HR [facility] Rx# :[id number] Oral 500 240 Output: Urine 800 1000 Other: Voiding Method Bedside Commode Bedside Commode Bedside Commode # Voids 5 0 # Bowel Movements 3 1 Weight 49.8 kg - Constitutional General appearance: cooperative, mild distress, thin - EENT Eyes: anicteric sclerae, EOMI ENT: hard of hearing, normal oropharynx - Neck Neck: no lymphadenopathy - Respiratory Respiratory: bilateral: diminished, rhonchi - Cardiovascular Rhythm: regular Heart sounds: normal: S1, S2 Abnormal Heart Sounds: no systolic murmur, no diastolic murmur, no rub, no S3 Gallop, no S4 Gallop, no click, no other leg Peripheral Edema: bilateral: None - Gastrointestinal General gastrointestinal: no absent bowel sounds, no decreased bowel sounds, no distended, no hepatomegaly, no hyperactive bowel sounds, normal bowel sounds, no organomegaly, no rigid, no scaphoid, soft, no splenomegaly, no tenderness, no umbilical hernia, no ventral hernia - Integumentary bronzing of skin of BLE - Neurologic Neurologic: CNII-XII intact - Musculoskeletal Musculoskeletal: generalized weakness, strength equal bilaterally - Psychiatric Psychiatric: A&O x's 3, appropriate affect, intact judgment & insight Results CBC & Chem 7: 10/27/18 05:40 10/28/18 06:14 Labs: Abnormal Lab Results - Last 24 Hours (Table) 10/28/18 Range/Units 06:14 Sodium 136 L (137-145) mmol/L Chloride 92 L (98-107) mmol/L Carbon Dioxide 38 H (22-30) mmol/L BUN 18 H (7-17) mg/dL Microbiology - Last 24 Hours (Table) 10/25/18 17:00 Gram Stain - Final Sputum Sputum Culture - Final Enterobacter cloacae 10/24/18 16:20 Blood Culture - Preliminary Blood No Growth after 72 hours Comments: MRI spine report reviewed MRI - head: report reviewed Assessment and Plan (1) Lung mass Narrative/Plan: S/P CT-guided percutaneous FNA of the right upper lobe. Pathology pending. MRI of the thoracic spine does not describe invasion of the spinal cord with tumor. MRI of the brain was negative for metastasis. Reviewed these results with pt. Reviewed with patient the importance of a PET scan to complete staging as that impacts treatment options and prognosis. Patient understands that very likely she has malignancy. She states that she is going to a detention on discharge so, she will not be able to get a PET scan until she is discharged from detention. She verbalized understanding. We will continue to watch for pathology and follow-up with patient's daughter to see what pt wishes are. Current Visit: Yes Status: Acute Priority: High Code(s): R91.8 - OTHER NONSPECIFIC ABNORMAL FINDING OF LUNG FIELD SNOMED Code(s): 260058190
[2018-10-28] MEDS: LEVOFLOXACIN 750MG-D5W PMX 750 MG in DEXTROSE/WATER 1 150ML.BAG IVPB SCH (12:18)
--- NOTE | 2018-10-28 13:20 | P.PN ---
Subjective Progress Note Date: 10/28/18 Principal diagnosis: Right suprahilar mass and nodularity involving the right lung suspicious for malignancy This is a 78-year-old white female patient with past medical history of advanced COPD on home oxygen, past history of nicotine dependence, currently in remission for last 8-9 months, patient carries [id number] smoking history, hypertension, chronic atrial fibrillation, osteoporosis, who was brought into the hospital by EMS for evaluation of worsening shortness of breath and hypoxemia. Apparently patient was at home and she has been increasingly short of breath, she noted that her pulse ox was down to 70 on her usual 2 L of oxygen. She does have an occasional cough with some yellow phlegm production, no hemoptysis, no completely chest pain, she denies any significant weight loss, but has been having some night sweats. She follows with Dr. Leonardo from pulmonary clinic however has not seen him since June 2018. Chest x-ray was completed showing masslike density at the right pulmonary hilum, which is a change from her previous chest x-ray from February 2018. There was also pulmonary vascular congestion noted and pulmonary interstitial edema with mild blunting of costophrenic angles. Chest CT With contrast showed a large lobulated right suprahilar mass with the right paraspinal extension and no evidence for associated bony destruction with additional pulmonary nodularity. Initial blood work showed a white blood cell count of 19.8, hemoglobin of 12.2, coagulation profile was within normal limits, sodium was 137, potassium is 4.2, chloride was 94, CO2 is 34, B1 was 14, creatinine was 0.4, proBNP was elevated at 4660, troponin was negative 1, urinalysis was clear. We are consulted for a new finding of a right suprahilar pulmonary mass with additional nodularity suspicious for lung cancer On 10/26/2018 patient seen in follow-up on selective care unit, she is awake and alert, less tachypneic and less dyspneic on today's exam, no acute distress, remains on 2 L of oxygen with a pulse ox of 94-97%, afebrile, does have exertional dyspnea, occasional cough with production of yellow sputum. Interventional radiology has agreed to put the patient on a schedule for fine- needle biopsy of the right suprahilar mass for tomorrow. This was discussed with the patient was agreeable to proceed. Today's labs have been reviewed. No new chest x-rays. Remains on IV diuretics. Zosyn for antibiotic coverage, patient has been afebrile, sputum culture is pending, blood culture is negative at 24 hour kade On 10/27/2018 patient seen in follow-up on selective care unit. Patient had a successful CT-guided biopsy of the right suprahilar lung mass, pathology is pending. Clinically she is stable, she is currently on 3 L of oxygen with a pulse ox of 100%, no fever or chills, vital signs are stable. No compressive chest pain, no sputum cultures remain negative thus far. Patient continues on IV Lasix, nebulized bronchodilators, and empiric antibiotics. She is maintaining negative fluid balance. Clinically stable, she can probably be considered for discharge home tomorrow with outpatient follow-up in regards to fine-needle biopsy results On 10/28/2018 patient seen in follow-up on selective care unit, she states she still has some shortness of breath, she is coughing up thick ca colored sputum, lung sounds reveal diminished air entry bilaterally, with scattered rhonchi. Sputum culture was positive for Enterobacter cloacae, with sensitivity to Zosyn which the patient has been on since admission. We'll add Levaquin to the current antibiotic coverage, patient continues on oral steroids, and nebulized bronchodilators and oral Lasix. He is maintaining negative fluid balance, her weight is down by approximately 3 kg since admission. Awaiting results of the fine-needle biopsy of the right suprahilar mass, patient underwent MRI of the spine and MRI of the head showing no evidence of metastatic lesions. Oncology is following, today's labs have been reviewed, showing serum sodium of 136, potassium is 4.0, chloride is 92, CO2 38, BUN of 18 and creatinine 0.60. Objective - Vital Signs Vital signs: Vital Signs Temp 97.6 F 10/28/18 11:20 Pulse 90 10/28/18 11:20 Resp 20 10/28/18 11:20 BP 121/68 10/28/18 11:20 Pulse Ox 100 10/28/18 11:20 Intake & Output 10/27/18 10/28/18 10/28/18 18:59 06:59 18:59 Intake Total 1440 100 240 Output Total 800 1000 1200 Balance 640 -900 -960 Weight 49.8 kg Intake: Intake, IV Titration 100 100 Amount Piperacillin-Tazobactam 3 100 100 .375 gm In Sodium Chloride 0.9% 100 ml @ 25 mls/hr IVPB Q8HR [facility] Rx# :[id number] Oral 1340 240 Output: Urine 800 1000 1200 Other: Voiding Method Bedside Commode Bedside Commode # Voids 5 0 1 # Bowel Movements 3 1 - Exam GENERAL EXAM: Alert, pleasant, 78-year-old white female, on 3 L of oxygen comfortable in no apparent distress. HEAD: Normocephalic/atraumatic. EYES: Normal reaction of pupils, equal size. Conjunctiva pink, sclera white. NOSE: Clear with pink turbinates. THROAT: No erythema or exudates. NECK: No masses, no JVD, no thyroid enlargement, no adenopathy. CHEST: No chest wall deformity. Symmetrical expansion. LUNGS: Equal air entry with minimal bibasilar rales CVS: Regular rate and rhythm, normal S1 and S2, no gallops, no murmurs, no rubs ABDOMEN: Soft, nontender. No hepatosplenomegaly, normal bowel sounds, no guarding or rigidity. EXTREMITIES: No clubbing, no edema, no cyanosis, 2+ pulses and upper and lower extremities. MUSCULOSKELETAL: Muscle strength and tone normal. SPINE: No scoliosis or deformity SKIN: No rashes CENTRAL NERVOUS SYSTEM: Alert and oriented -3. No focal deficits, tone is norm al in all 4 extremities. PSYCHIATRIC: Alert and oriented -3. Appropriate affect. Intact judgment and insight. - Labs CBC & Chem 7: 10/27/18 05:40 10/28/18 06:14 Labs: Abnormal Lab Results - Last 24 Hours (Table) 10/28/18 Range/Units 06:14 Sodium 136 L (137-145) mmol/L Chloride 92 L (98-107) mmol/L Carbon Dioxide 38 H (22-30) mmol/L BUN 18 H (7-17) mg/dL Microbiology - Last 24 Hours (Table) 10/25/18 17:00 Gram Stain - Final Sputum Sputum Culture - Final Enterobacter cloacae 10/24/18 16:20 Blood Culture - Preliminary Blood No Growth after 72 hours Assessment and Plan Plan: Assessment: #1. A new finding of right suprahilar mass with additional nodularity involving the right lung, highly suspicious for malignancy, status post fine-needle CT- guided biopsy pathology pending #2. Acute on chronic hypoxemic respiratory failure related to the above and acute congestive heart failure and acute Enterobacter pneumonia, sputum cultures positive for Enterobacter cloacae #3. History of advanced COPD, stage III, with baseline FEV1 of 0.62 L or 33% of predicted and DLVA of 41%, with chronic hypoxemic respiratory failure as of June 2018 #4. Chronic atrial fibrillation #5. Ex-smoker, quit smoking several months ago, carries [id number] smoking history #6. History of chronic congestive heart failure with systolic dysfunction and severely impaired left ventricular function and EF of 25-30% #7. History of rectal bleeding on Coumadin #8. GERD/reflux #9. Hypertension #10. Hyperlipidemia #11. Osteoarthritis Plan: Today's sputum culture revealed evidence of Enterobacter cloacae, will continue with Zosyn will add Levaquin to current antibiotic coverage, continue with oral prednisone, nebulized bronchodilators, patient is still complaining of dyspnea, and chest congestion, will continue with current inpatient treatment, awaiting the results of the fine-needle biopsy of the right suprahilar mass, medical oncology is following, and MRA of the brain and spine were negative for any evidence of metastasis. Clinically she remains stable, her IV Lasix has been transitioned to oral Lasix. Discharge planning is in progress for placement to subacute rehab [facility] possibly in the next 24 hours. I have discussed CODE STATUS with her, yesterday I spoke to her daughter who stated that her mother (the patient) has made quite clear that she would not want to be resuscitated or placed on life-support in case of clinical decline. Today I spoke to the patient herself who confirmed that her CODE STATUS is DO NOT RESUSCITATE, which is reasonable given her multiple comorbidities, very poor lung function, and the possibility of a malignancy I performed a history & physical examination of the patient and discussed their management with my nurse practitioner, Maral Phipps. I reviewed the nurse practitioner's note and agree with the documented findings and plan of care. Lung sounds are positive for bibasilar rales. The findings and the impression was discussed with the patient. I attest to the documentation by the nurse practitioner. Time with Patient: Less than 30
--- NOTE | 2018-10-28 14:07 | XR ---
EXAMINATION TYPE: XR chest 1V portable DATE OF EXAM: 10/28/2018 CLINICAL HISTORY: Difficulty breathing progress study. TECHNIQUE: Single AP portable upright view of the chest is obtained. COMPARISON: Chest x-ray from one day earlier. CT chest from 3 days earlier. FINDINGS: Background chronic emphysematous change with right suprahilar mass is redemonstrated. Ther e is persistent left basilar atelectasis and/or infiltrate. No pneumothorax is seen bilaterally. Card iac silhouette size is stable and enlarged with atherosclerotic aorta. Osseous structures remain carline neralized with underlying scoliosis redemonstrated. IMPRESSION: Overall stable findings, chronic emphysematous changes and cardiomegaly with patchy lef t basilar acute atelectasis and/or infiltrate. Redemonstration of strongly suspicious right suprahila r mass.
--- NOTE | 2018-10-28 14:36 | P.PN ---
Subjective Progress Note Date: 10/28/18 Principal diagnosis: This is an 78-year-old female who was recently admitted for acute exacerbation of COPD as well as CHF with acute exacerbation and is being closely monitored. Patient has a large lobulated right suprahilar mass and patient underwent needle aspiration biopsy this morning. Patient denies any chest pain or palpitations at this time but is having some generalized pain. Patient denies any nausea or vomiting and was nothing by mouth prior to the procedure. Patient is awaiting lunch at this time. Patient remains afebrile. Daughter was at the bedside but has just left. PT/OT are following. Patient is very weak and unable to walk much per PT at this time. Will continue to encourage working with PT/OT. Patient states that she is having some shortness of breath still at this time with exertion. Patient is normally O2 dependent at 2 L via nasal cannula. 10/28/2018 Patient is lying in bed sleeping but arousable and appears to be in no acute distress. Patient is easily startled when waking. Patient states that her shortness of breath has remained unchanged since yesterday. Patient denies any chest pain or palpitations at this time. When speaking with nursing staff this morning they stated that when she was getting up to be weighed she had a run of V. tach (26 beats) on the monitor but was asymptomatic. Cardiology is following as well as pulmonary. Patient underwent a needle aspiration lung biopsy report is pending at this time. Patient denies any nausea or vomiting and has been tolerating diet. Patient remains afebrile. Patient continues to be on IV antibiotics in the form of Zosyn and this morning Levaquin IV was added as her cultures of the sputum came back with Enterobacter cloacae. Oncology have been consulted and are following. Guarded prognosis. REVIEW OF SYSTEMS: ENT: reports diminished vision and hearing. CARDIOVASCULAR: Mentioned earlier. RESPIRATORY: Reports shortness of breath, reports cough with phlegm GI: No nauscea, vomiting or diarrhea. : No dysuria or retention. NERVOUS SYSTEM: No numbness, reports weakness. MUSCULOSKELETAL: Reports generalized body aches throughout. CONSTITUTIONAL: As mentioned earlier. PSYCHIATRY: Mentioned earlier. Active Medications Acetaminophen (Tylenol Tab) 500 mg PO Q6HR PRN Hydrocodone Bitart/Acetaminophen ([place] 5-325) 0.5 each PO Q6HR PRN Albuterol Sulfate (Ventolin Nebulized) 2.5 mg INHALATION RT-Q4H PRN Albuterol/Ipratropium (Duoneb 0.5 Mg-3 Mg/3 Ml Soln) 3 ml INHALATION RT-QID PRN Albuterol/Ipratropium (Duoneb 0.5 Mg-3 Mg/3 Ml Soln) 3 ml INHALATION RT-Q2H PRN Alprazolam (Xanax) 0.25 mg PO TID PRN Atorvastatin Calcium (Lipitor) 20 mg PO DAILY [facility] Budesonide/Formoterol Fumarate (Symbicort 160-4.5 Mcg Inhaler) 2 puff INHALATION RT-BID [facility] Calcium Carbonate/Glycine (Tums) 500 mg PO BID [facility] Digoxin (Lanoxin) 125 mcg PO DAILY [facility] Ergocalciferol (Vitamin D2) 50,000 unit PO Q30D [facility] Furosemide (Lasix) 40 mg PO BID@0900,1600 [facility] Piperacillin Sod/Tazobactam (Sod 3.375 gm/ Sodium Chloride) 100 mls @ 25 mls/hr IVPB Q8HR [facility] Levofloxacin 750 mg/ IV (Solution) 150 mls @ 100 mls/hr IVPB Q24H [facility] Metoprolol Succinate (Toprol Xl) 25 mg PO DAILY [facility] Miscellaneous Information (Pneumonia Protocol Utilized) 1 each PO ONCE PRN Miscellaneous Information (Magnesium Per Protocol) 1 each MISCELLANE DAILY PRN; Protocol Miscellaneous Information (Potassium Per Protocol) 1 each MISCELLANE DAILY PRN; Protocol Pantoprazole Sodium (Protonix) 40 mg PO AC-BID [facility] Potassium Chloride (K-Dur 20) 20 meq PO DAILY [facility] Prednisone () 40 mg PO DAILY [facility] Objective - Vital Signs Vital signs: Vital Signs Temp 97.6 F 10/28/18 11:20 Pulse 90 10/28/18 11:20 Resp 20 10/28/18 11:20 BP 121/68 10/28/18 11:20 Pulse Ox 100 10/28/18 11:20 Intake & Output 10/27/18 10/28/18 10/28/18 18:59 06:59 18:59 Intake Total 1440 100 360 Output Total 800 1000 1200 Balance 640 900 -840 Weight 49.8 kg Intake: Intake, IV Titration 100 100 Amount Piperacillin-Tazobactam 3 100 100 .375 gm In Sodium Chloride 0.9% 100 ml @ 25 mls/hr IVPB Q8HR [facility] Rx# :[id number] Oral 1340 360 Output: Urine 800 1000 1200 Other: Voiding Method Bedside Commode Bedside Commode # Voids 5 0 2 # Bowel Movements 3 1 - Exam Gen: This is a 78-year-old female sitting up in bed in no acute distress. Vital signs are stable. Temperature is 97.6F, pulse is 90, respirations are 20, blood pressure is 121/68, oxygen saturation is 100% on 3 L nasal cannula. HEENT: Head is atraumatic, normocephalic. Pupils equal, round. Sclerae is anicteric. NECK: Supple. No JVD. No lymphadenopathy. No thyromegaly. LUNGS: Diminished breath sounds at the bases with a few rhonchi noted bilaterally. No wheezes or crackles noted. No intercostal retractions. HEART: S1 and S2 are muffled ABDOMEN: Soft. Bowel sounds are present. No masses. No tenderness. EXTREMITIES: No pedal edema. No calf tenderness. NEUROLOGICAL: Patient is resting but easily arousable, alert and oriented x3. Cranial nerves 2 through 12 are grossly intact. - Labs CBC & Chem 7: 10/27/18 05:40 10/28/18 06:14 Labs: Abnormal Lab Results - Last 24 Hours (Table) 10/28/18 Range/Units 06:14 Sodium 136 L (137-145) mmol/L Chloride 92 L (98-107) mmol/L Carbon Dioxide 38 H (22-30) mmol/L BUN 18 H (7-17) mg/dL Microbiology - Last 24 Hours (Table) 10/25/18 17:00 Gram Stain - Final Sputum Sputum Culture - Final Enterobacter cloacae 10/24/18 16:20 Blood Culture - Preliminary Blood No Growth after 72 hours Assessment and Plan Assessment: Shortness of breath, possibly multifactorial, with congestive heart failure, acute exacerbation with acute on chronic systolic dysfunction, ejection fraction 20-30%, as well as chronic obstructive pulmonary disease, acute exacerbation, with acute purulent tracheobronchitis Large lobulated right suprahilar mass with right supraspinal extension with no evidence of associated bony destruction. Patient underwent fine-needle aspiration biopsy. Report is pending. MRI of the thoracic spine and brain done yesterday were negative for metastasis. Oncology is following History of atrial fibrillation, chronic History of gastroesophageal reflux disease Right-sided chest pain, possibly pleuritic Hypomagnesemia Hypertension Hyperlipidemia Mild to moderate protein-calorie malnutrition with emaciation Degenerative joint disease and chronic back pain Increased WBC Recommendations and discussion: Recommend to continue current medications and symptomatic treatment. Will c ontinue to monitor closely. Fine-needle aspiration biopsy is pending. Multiple medical consultations are following. Due to multiple complex medical issues prognosis is guarded. Patient is agreeable to [facility] once stabilized. Continue on IV antibiotics at this time and IV Levaquin was also added to the Zosyn per pulmonary recommendations for positive sputum cultures. Further recommendations to follow. Possible discharge in 24-48 hours.
[2018-10-28] MEDS: FUROSEMIDE 40 MG TAB PO SCH (15:54)
--- NOTE | 2018-10-28 16:06 | P.PN ---
Subjective Progress Note Date: 10/28/18 This is a pleasant 78-year-old female who follows with Dr. VC Pastrana in the office. 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 She presents to the hospital on this occasion with symptoms of progressively worsening shortness of breath, extreme weakness, and productive cough of yellow sputum. Her chest x-ray on presentation here showed congestive heart failure with a masslike density at the right pulmonary hilum which is a change as compared with her prior exam. There is also some underlying pulmonary fibrosis. Heart failure slightly worsened prior exam. Her EKG shows atrial fibrillation with nonspecific ST-T wave changes. Subsequent chest x-ray showed chronic emphysema and parenchymal fibrotic changes with a persistent small left pleural effusion and associated atelectasis. Persistent suspicious right suprahilar mass worrisome for neoplasm. CAT scan of the chest showed a large lobulated right suprahilar mass with the right paraspinal extension and no evidence for associated bony destruction. Findings are felt to reflect malignancy until given otherwise. Additional pulmonary nodularity as discussed. Blood pressure 120/50 with a heart rate in the 80s to 90s. 99% on 3 L of oxygen. White blood cell count 19.8 on admission, 11.2 this morning, hemoglobin 12.6, platelet count 225. Sodium 137, potassium 3.5, BUN 15, creatinine 0.5. Magnesium 1.3 on admission, 1.4 this morning. Troponin negative. BNP level 4660. At the time of my examination this morning, patient continues to feel quite short of breath, she continues to have a productive cough of yellow to green sputum. 10/28/2018 Patient was seen and examined this morning, she states she still feel short of breath but overall feels well. We will discontinue the IV Lasix and change to oral diuretics today. Her weight is down 1 kg today. Arrangements are being made for her to transfer [facility] tomorrow. Blood pressure 120/60 with a heart rate of 90, 100% on 3 L of oxygen. 86, potassium 4.0, BUN 18 and creati nine 0.6. Objective - Vital Signs Vital signs: Vital Signs Temp 97.6 F 10/28/18 11:20 Pulse 90 10/28/18 11:20 Resp 20 10/28/18 11:20 BP 121/68 10/28/18 11:20 Pulse Ox 100 10/28/18 11:20 Intake & Output 10/27/18 10/28/18 10/28/18 18:59 06:59 18:59 Intake Total 1440 100 360 Output Total 800 1000 1200 Balance 640 -900 -840 Weight 49.8 kg Intake: Intake, IV Titration 100 100 Amount Piperacillin-Tazobactam 3 100 100 .375 gm In Sodium Chloride 0.9% 100 ml @ 25 mls/hr IVPB Q8HR [facility] Rx# :[id number] Oral 1340 360 Output: Urine 800 1000 1200 Other: Voiding Method Bedside Commode Bedside Commode # Voids 5 0 2 # Bowel Movements 3 1 - Exam PHYSICAL EXAMINATION: GENERAL: 78-year-old female in no acute distress at the time of my examination HEENT: Head is atraumatic, normocephalic. Pupils equal, round. Sclera anicteric. Conjunctiva are clear. Mucous membranes of the mouth are moist. Neck is supple. There is elevated jugular venous pressure. No carotid bruit is heard. HEART EXAMINATION: Heart S1 S2 irregularly irregular no murmur or gallop. CHEST EXAMINATION:lungs reveal decreased air exchange throughout with scattered rhonchi. ABDOMEN: Soft, nontender. Bowel sounds are heard. No organomegaly noted. EXTREMITIES: 2+ peripheral pulses with no evidence of peripheral edema and no calf tenderness noted. Chronic discoloration of the lower extremities NEUROLOGIC patient is awake, alert and oriented 3 . - Labs CBC & Chem 7: 10/27/18 05:40 10/28/18 06:14 Labs: Abnormal Lab Results - Last 24 Hours (Table) 10/28/18 Range/Units 06:14 Sodium 136 L (137-145) mmol/L Chloride 92 L (98-107) mmol/L Carbon Dioxide 38 H (22-30) mmol/L BUN 18 H (7-17) mg/dL Microbiology - Last 24 Hours (Table) 10/25/18 17:00 Gram Stain - Final Sputum Sputum Culture - Final Enterobacter cloacae 10/24/18 16:20 Blood Culture - Preliminary Blood No Growth after 72 hours Assessment and Plan Plan: Assessment and plan #1 symptoms of progressively worsening shortness of breath, likely combination of congestive heart failure and possible acute tracheobronchitis. COPD exacerb ation. He was also noted on the patient's chest x-ray and CAT scan that there is a new large loculated right suprahilar mass which may reflect malignancy. Status post fine-needle CT guided biopsy #2 history of COPD and emphysema #3 chronic atrial fibrillation #4 hyperlipidemia #5 prior history of smoking, she quit smoking in 2017 #6 history of stress cardiomyopathy Plan Discontinue the IV Lasix and change patient over to oral diuretics today. DNP note has been reviewed, I agree with a documented findings and plan of care. Patient was seen and examined.
[2018-10-28] MEDS: ALPRAZolam 0.25 MG TAB PO PRN (19:38)
[2018-10-29] MEDS: PIPERACILLIN-TAZOBACTAM 3.375 GM in SODIUM CHLORIDE 0.9% 100 ML IVPB SCH ×2 (06:21→08:48)
[2018-10-29] MEDS: PANTOPRAZOLE 40 MG TABLET PO SCH (06:37)
[2018-10-29 08:30] VITALS: BP 137/68; PULSE 78; RESP 19; TEMP 97.8
[2018-10-29] MEDS: FUROSEMIDE 40 MG TAB PO SCH (08:47)
[2018-10-29] MEDS: CALCIUM CARBONATE 500 MG CHEWABLE PO SCH (08:47)
[2018-10-29] MEDS: ATORVASTATIN 20 MG TAB PO SCH (08:47)
[2018-10-29] MEDS: predniSONE 20 MG TAB PO SCH (08:48)
[2018-10-29] MEDS: DIGOXIN 125 MCG TAB PO SCH (08:48)
[2018-10-29] MEDS: METOPROLOL SUCCINATE (ER) 25 MG TAB.ER.24H PO SCH (08:48)
[2018-10-29] MEDS: POTASSIUM CHLORIDE ER 20 MEQ TAB.ER PO SCH (08:48)
[2018-10-29] MEDS: SYMBICORT 160-4.5 MCG INHALER INHALATION SCH (09:03)
[2018-10-29] MEDS ORDERED: APIXABAN 2.5 MG TABLET PO SCH (10:15)
[2018-10-29] MEDS: LEVOFLOXACIN 750MG-D5W PMX 750 MG in DEXTROSE/WATER 1 150ML.BAG IVPB SCH (12:44)
--- NOTE | 2018-10-29 13:21 | P.PN ---
Subjective Progress Note Date: 10/29/18 Principal diagnosis: Right suprahilar mass and nodularity involving the right lung suspicious for malignancy This is a 78-year-old white female patient with past medical history of advanced COPD on home oxygen, past history of nicotine dependence, currently in remission for last 8-9 months, patient carries [id number] smoking history, hypertension, chronic atrial fibrillation, osteoporosis, who was brought into the hospital by EMS for evaluation of worsening shortness of breath and hypoxemia. Apparently patient was at home and she has been increasingly short of breath, she noted that her pulse ox was down to 70 on her usual 2 L of oxygen. She does have an occasional cough with some yellow phlegm production, no hemoptysis, no completely chest pain, she denies any significant weight loss, but has been having some night sweats. She follows with Dr. Leonardo from pulmonary clinic however has not seen him since June 2018. Chest x-ray was completed showing masslike density at the right pulmonary hilum, which is a change from her previous chest x-ray from February 2018. There was also pulmonary vascular congestion noted and pulmonary interstitial edema with mild blunting of costophrenic angles. Chest CT With contrast showed a large lobulated right suprahilar mass with the right paraspinal extension and no evidence for associated bony destruction with additional pulmonary nodularity. Initial blood work showed a white blood cell count of 19.8, hemoglobin of 12.2, coagulation profile was within normal limits, sodium was 137, potassium is 4.2, chloride was 94, CO2 is 34, B1 was 14, creatinine was 0.4, proBNP was elevated at 4660, troponin was negative 1, urinalysis was clear. We are consulted for a new finding of a right suprahilar pulmonary mass with additional nodularity suspicious for lung cancer On 10/26/2018 patient seen in follow-up on selective care unit, she is awake and alert, less tachypneic and less dyspneic on today's exam, no acute distress, remains on 2 L of oxygen with a pulse ox of 94-97%, afebrile, does have exertional dyspnea, occasional cough with production of yellow sputum. Interventional radiology has agreed to put the patient on a schedule for fine- needle biopsy of the right suprahilar mass for tomorrow. This was discussed with the patient was agreeable to proceed. Today's labs have been reviewed. No new chest x-rays. Remains on IV diuretics. Zosyn for antibiotic coverage, patient has been afebrile, sputum culture is pending, blood culture is negative at 24 hour kade On 10/27/2018 patient seen in follow-up on selective care unit. Patient had a successful CT-guided biopsy of the right suprahilar lung mass, pathology is pending. Clinically she is stable, she is currently on 3 L of oxygen with a pulse ox of 100%, no fever or chills, vital signs are stable. No compressive chest pain, no sputum cultures remain negative thus far. Patient continues on IV Lasix, nebulized bronchodilators, and empiric antibiotics. She is maintaining negative fluid balance. Clinically stable, she can probably be considered for discharge home tomorrow with outpatient follow-up in regards to fine-needle biopsy results On 10/28/2018 patient seen in follow-up on selective care unit, she states she still has some shortness of breath, she is coughing up thick ca colored sputum, lung sounds reveal diminished air entry bilaterally, with scattered rhonchi. Sputum culture was positive for Enterobacter cloacae, with sensitivity to Zosyn which the patient has been on since admission. We'll add Levaquin to the current antibiotic coverage, patient continues on oral steroids, and nebulized bronchodilators and oral Lasix. He is maintaining negative fluid balance, her weight is down by approximately 3 kg since admission. Awaiting results of the fine-needle biopsy of the right suprahilar mass, patient underwent MRI of the spine and MRI of the head showing no evidence of metastatic lesions. Oncology is following, today's labs have been reviewed, showing serum sodium of 136, potassium is 4.0, chloride is 92, CO2 38, BUN of 18 and creatinine 0.60. On 10/29/2018 patient seen in follow-up on selective care unit, in no acute distress, she remains on 2 L of oxygen with a pulse ox of 94%, afebrile, hemodynamically stable, yesterday we added Levaquin and she continues on IV Zosyn for evidence of Enterobacter cloacae in her sputum. Lung sounds reveal some coarse crackles at bilateral bases, left greater than right. 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 Medical oncology is following, and is planning on doing a PET scan on outpatient basis. Patient has been diuresed, she is maintained on oral Eliquis and her diuretics have been transitioned to Lasix Objective - Vital Signs Vital signs: Vital Signs Temp 97.8 F 10/29/18 08:29 Pulse 78 10/29/18 08:39 Resp 19 10/29/18 08:39 BP 137/68 10/29/18 08:29 Pulse Ox 94 L 10/29/18 08:29 Intake & Output 10/28/18 10/29/18 10/29/18 18:59 06:59 18:59 Intake Total 840 100 480 Output Total 1500 Balance -660 100 480 Weight 50.3 kg Intake: Intake, IV Titration 100 Amount Piperacillin-Tazobactam 3 100 .375 gm In Sodium Chloride 0.9% 100 ml @ 25 mls/hr IVPB Q8HR [facility] Rx# :[id number] Oral 840 480 Output: Urine 1500 Other: Voiding Method Bedside Commode Bedside Commode # Voids 2 1 2 # Bowel Movements 1 - Exam GENERAL EXAM: Alert, pleasant, 78-year-old white female, on 2 L of oxygen comfortable in no apparent distress. HEAD: Normocephalic/atraumatic. EYES: Normal reaction of pupils, equal size. Conjunctiva pink, sclera white. NOSE: Clear with pink turbinates. THROAT: No erythema or exudates. NECK: No masses, no JVD, no thyroid enlargement, no adenopathy. CHEST: No chest wall deformity. Symmetrical expansion. LUNGS: Equal air entry with coarse bibasilar rales CVS: Regular rate and rhythm, normal S1 and S2, no gallops, no murmurs, no rubs ABDOMEN: Soft, nontender. No hepatosplenomegaly, normal bowel sounds, no g uarding or rigidity. EXTREMITIES: No clubbing, no edema, no cyanosis, 2+ pulses and upper and lower extremities. MUSCULOSKELETAL: Muscle strength and tone normal. SPINE: No scoliosis or deformity SKIN: No rashes CENTRAL NERVOUS SYSTEM: Alert and oriented -3. No focal deficits, tone is normal in all 4 extremities. PSYCHIATRIC: Alert and oriented -3. Appropriate affect. Intact judgment and insight. - Labs CBC & Chem 7: 10/27/18 05:40 10/28/18 06:14 Labs: Microbiology - Last 24 Hours (Table) 10/24/18 16:20 Blood Culture - Preliminary Blood No Growth after 96 hours 10/25/18 17:00 Gram Stain - Final Sputum Sputum Culture - Final Enterobacter cloacae Assessment and Plan Plan: Assessment: #1. 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 Acute on chronic hypoxemic respiratory failure related to the above and acute congestive heart failure and acute Enterobacter pneumonia, sputum cultures positive for Enterobacter cloacae #3. History of advanced COPD, stage III, with baseline FEV1 of 0.62 L or 33% of predicted and DLVA of 41%, with chronic hypoxemic respiratory failure as of June 2018 #4. Chronic atrial fibrillation #5. Ex-smoker, quit smoking several months ago, carries [id number] smoking history #6. History of chronic congestive heart failure with systolic dysfunction and severely impaired left ventricular function and EF of 25-30% #7. History of rectal bleeding on Coumadin #8. GERD/reflux #9. Hypertension #10. Hyperlipidemia #11. Osteoarthritis Plan: Patient's breathing is stable, vital signs are stable, no fever or chills, no acute events overnight, patient can be considered for discharge today to [facility], on oral course of Levaquin 750 mg or 7 more days, prednisone taper, and she can resume nebulized treatments, Symbicort. She will need follow-up appointments with Dr. Leonardo in the office in 7-10 days. I performed a history & physical examination of the patient and discussed their management with my nurse practitioner, Maral Phipps. I reviewed the nurse practitioner's note and agree with the documented findings and plan of care. Lung sounds are positive for bibasilar rales. The findings and the impression was discussed with the patient. I attest to the documentation by the nurse practitioner. Time with Patient: Less than 30
--- NOTE | 2018-10-29 13:40 | P.DS ---
Providers Date of admission: 10/24/18 16:33 Expected date of discharge: 10/29/18 Attending physician: Izaiah Viera MD Consults: 10/24/18 16:33 Consult Physician Routine Consulting Provider: Janice Mora Consult Reason/Comments: Pulmonary edema, pneumonia Do you want consulting provider notified?: Yes 10/24/18 19:45 Consult Physician Routine Consulting Provider: Jensen Galindo Consult Reason/Comments: chf Do you want consulting provider notified?: Yes 10/26/18 16:52 Consult Physician Routine Consulting Provider: Todd Conti Consult Reason/Comments: malignancy?? Do you want consulting provider notified?: Yes Primary care physician: Janel Marie [facility] Course: Final diagnosis Shortness of breath, possibly multifactorial, with congestive heart failure, a cute exacerbation with acute on chronic systolic dysfunction Chronic obstructive pulmonary disease, acute exacerbation, with acute purulent tracheobronchitis Large lobulated right suprahilar mass with right supraspinal extension with no evidence of associated bony destruction Poorly differentiated non-small cell carcinoma, favor squamous cell carcinoma found on fine needle aspiration biopsy History of atrial fibrillation, chronic History of gastroesophageal reflux disease right-sided chest pain, possibly pleuritic Hypomagnesemia Hypertension Hyperlipidemia Mild to moderate protein calorie malnutrition with emaciation Degenerative joint disease with chronic back pain Increased WBC Discharge disposition Patient is being discharged in a stable condition with guarded prognosis to [facility] for continued PT/OT therapy. Patient is to complete a course of oral antibiotics in the form of Levaquin for 1 week. Patient is to follow-up with Dr. Leonardo in the outpatient setting in one week. Patient will follow-up with oncology in the outpatient setting as well. Total time taken is 35 minutes. History of present illness This is an 78-year-old female who was recently admitted for acute exacerbation of COPD as well as CHF with acute exacerbation and was being closely monitored. Chest x-ray showed a large lobulated right suprahilar mass and during hospitalization patient underwent a needle aspiration biopsy. 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 Oncology is following. Patient will follow-up in the outpatient setting with oncology for a PET scan. MRI of the brain and thoracic spine were done during hospitalization showing no metastasis at this time. Patient denies any chest pain or palpitations at this time. Patient continues to have some shortness of breath the patient states that this is not gotten any worse since hospitalization. Patient is normally oxygen dependent on 2 L via nasal cannula. Patient denies any nausea or vomiting and has been tolerating diet. Patient remains afebrile. Currently patient's condition is stable and patient is ready for discharge to subacute rehab. On exam vital signs are stable. Temp is 97.8 oral, pulse is 78, respirations are 19, blood pressure is 137/68, oxygen saturation is 94% on 2 L via nasal cannula. Cardio S1 and S2 are muffled. Respiratory system shows diminished breath sounds at the bases with a few scattered rhonchi noted. Abdomen is soft, thin, nontender. Nervous system shows mild diffuse weakness with no new focal deficits. Please refer to medication reconciliation sheet for a list of medications. Patient Condition at Discharge: Fair Plan - Discharge Summary Discharge Rx Participant: Yes New Discharge Prescriptions: New Ipratropium-Albuterol Nebulize [Duoneb 0.5 mg-3 mg/3 ml Soln] 3 ml INHALATION RT-Q2H PRN ampul.neb PRN Reason: Shortness Of Breath Or Wheezing Ipratropium-Albuterol Nebulize [Duoneb 0.5 mg-3 mg/3 ml Soln] 3 ml INHALATION RT-QID ampul.neb Furosemide [Lasix] 40 mg PO BID@0900,1600 tab Levofloxacin [Levaquin] 750 mg PO DAILY 7 Days #7 tab predniSONE 10 mg PO DIRECTED #30 tab Budesonide-Formot 160-4.5 Mcg [Symbicort 160-4.5 Mcg Inhaler] 2 puff INHALATION RT-BID puff Acetaminophen Tab [Tylenol] 500 mg PO Q6HR PRN tab PRN Reason: Fever And/ Or Pain ALPRAZolam [Xanax] 0.25 mg PO TID PRN #6 tab PRN Reason: Anxiety Continue Ergocalciferol [Vitamin D2 (DRISDOL)] 50,000 unit PO Q30D Digoxin [Digitek] 125 mcg PO DAILY Potassium Chloride ER [K-Dur 20] 20 meq PO DAILY Atorvastatin [Lipitor] 20 mg PO DAILY tab Pantoprazole [Protonix] 40 mg PO AC-BID tablet.dr Calcium Carbonate [Calcium] 600 mg PO BID Apixaban [Eliquis] 2.5 mg PO BID tablet Albuterol Nebulized [Ventolin Nebulized] 2.5 mg INHALATION RT-Q4H PRN PRN Reason: Shortness Of Breath Metoprolol Succinate [Toprol XL] 25 mg PO DAILY Furosemide [Lasix] 20 mg PO Q72H Verapamil HCl [Verapamil ER] 120 mg PO DAILY Discharge Medication List Digoxin [Digitek] 125 mcg PO DAILY 12/07/16 [History] Ergocalciferol [Vitamin D2 (DRISDOL)] 50,000 unit PO Q30D 12/07/16 [History] Potassium Chloride ER [K-Dur 20] 20 meq PO DAILY 12/07/16 [History] Atorvastatin [Lipitor] 20 mg PO DAILY tab 12/15/16 [Rx] Pantoprazole [Protonix] 40 mg PO AC-BID tablet.dr 12/15/16 [Rx] Calcium Carbonate [Calcium] 600 mg PO BID 02/22/18 [History] Apixaban [Eliquis] 2.5 mg PO BID tablet 03/03/18 [Rx] Albuterol Nebulized [Ventolin Nebulized] 2.5 mg INHALATION RT-Q4H PRN 10/24/18 [History] Furosemide [Lasix] 20 mg PO Q72H 10/24/18 [History] Metoprolol Succinate [Toprol XL] 25 mg PO DAILY 10/24/18 [History] Verapamil HCl [Verapamil ER] 120 mg PO DAILY 10/24/18 [History] ALPRAZolam [Xanax] 0.25 mg PO TID PRN #6 tab 10/29/18 [Rx] Acetaminophen Tab [Tylenol] 500 mg PO Q6HR PRN tab 10/29/18 [Rx] Budesonide-Formot 160-4.5 Mcg [Symbicort 160-4.5 Mcg Inhaler] 2 puff INHALATION RT-BID puff 10/29/18 [Rx] Furosemide [Lasix] 40 mg PO BID@0900,1600 tab 10/29/18 [Rx] Ipratropium-Albuterol Nebulize [Duoneb 0.5 mg-3 mg/3 ml Soln] 3 ml INHALATION RT-Q2H PRN ampul.neb 10/29/18 [Rx] Ipratropium-Albuterol Nebulize [Duoneb 0.5 mg-3 mg/3 ml Soln] 3 ml INHALATION RT-QID ampul.neb 10/29/18 [Rx] Levofloxacin [Levaquin] 750 mg PO DAILY 7 Days #7 tab 10/29/18 [Rx] predniSONE 10 mg PO DIRECTED #30 tab 10/29/18 [Rx] Follow up Appointment(s)/Referral(s): Todd Conti MD [STAFF PHYSICIAN] - 1 Week Noel Leonardo DO [Doctor of Osteopathic Medicine] - 11/16/18 3:00 pm (Earliest appointment with Lily Yao. ) Janel Marie MD [Primary Care Provider] - 1 Week Ambulatory/Diagnostic Orders: Basic Metabolic Panel [LAB.AMB] Time Frame: 3 Days, Location: None Selected Complete Blood Count w/diff [LAB.AMB] Time Frame: 3 Days, Location: None Selected Activity/Diet/Wound Care/Special Instructions: [place] Activity as tolerated continue current diet patient is to continue antibiotics for one week follow up with primary care provider upon discharge or in one week follow up with Dr. Leonardo in one week follow up with Dr. Conti upon discharge continue breathing treatments 4 times daily as scheduled and also as needed Discharge Disposition: TRANSFER TO SNF/ECF
[2018-10-29 15:01] VITALS: BMI 19.6
[2018-11-16] MEDS ORDERED: ERGOCALCIFEROL 50,000 UNIT CAP PO SCH (09:00)
== END 2018-10-29 15:15 | DRG 291 ==
LOC: EC 14:51 → 3SCARD 16:33
PROVIDERS: ADMIT Internal Medicine; ATTEND Internal Medicine
PROC: 0BBC3ZX Excision of Right Upper Lung Lobe, Percutaneous Approach, Diagnostic (ICD-10-PCS; principal; 2018-10-27)
DX: I11.0 Hypertensive heart disease with heart failure (principal); J15.6 Pneumonia due to other Gram-negative bacteria; J96.21 Acute and chronic respiratory failure with hypoxia; E41 Nutritional marasmus; E44.0 Moderate protein-calorie malnutrition; I48.1 Persistent atrial fibrillation; J44.0 Chronic obstructive pulmonary disease with (acute) lower respiratory infection; J44.1 Chronic obstructive pulmonary disease with (acute) exacerbation; J98.11 Atelectasis; Z68.1 Body mass index [BMI] 19.9 or less, adult; C34.11 Malignant neoplasm of upper lobe, right bronchus or lung; C79.51 Secondary malignant neoplasm of bone; I50.23 Acute on chronic systolic (congestive) heart failure; E78.5 Hyperlipidemia, unspecified; E83.42 Hypomagnesemia; G89.29 Other chronic pain; H91.90 Unspecified hearing loss, unspecified ear; J84.10 Pulmonary fibrosis, unspecified; K21.9 Gastro-esophageal reflux disease without esophagitis; M19.90 Unspecified osteoarthritis, unspecified site; M81.0 Age-related osteoporosis without current pathological fracture; Z79.01 Long term (current) use of anticoagulants; Z79.899 Other long term (current) drug therapy; Z80.0 Family history of malignant neoplasm of digestive organs; Z82.49 Family history of ischemic heart disease and other diseases of the circulatory system; Z87.891 Personal history of nicotine dependence; Z90.710 Acquired absence of both cervix and uterus; Z99.81 Dependence on supplemental oxygen; Z53.09 Procedure and treatment not carried out because of other contraindication
CPT/HCPCS: 10009; 36415; 70553; 71045; 71046; 71260; 72157; 77012; 80048; 80053; 81003; 83605; 83735; 83880; 84484; 85025; 85610; 85730; 87040; 87070; 87077; 87186; 87205; 88173; 88305; 88341; 88342; 93005; 93306; 94640; 94760; 96365; 96367; 96375; 99285

== ENCOUNTER → 2018-11-13 | Outpatient (CLI) | payer MEDICARE, BC, OTHER ==
--- NOTE | 2018-11-17 07:41 | PE ---
EXAMINATION TYPE: PET CT fusion skull to thigh DATE OF EXAM: 11/13/2018 COMPARISON: EXAMINATION TYPE: PET CT fusion skull to thigh DATE OF EXAM: 11/13/2018 COMPARISON: Chest CT October 25, 2018 and older CTs. HISTORY: Lung cancer originally diagnosed on recent biopsy in the right lung in October . TECHNIQUE: Following the intravenous administration of 11.59 mCi of F-18 FDG, whole body images are performed from the skull base to the midthigh. Images are reviewed on the computer in the coronal, a xial, and sagittal planes. Reconstructed rotating images are created on independent workstation and reviewed on the computer. A noncontrast CT is performed in conjunction with the PET scan. SCAN: Initial Scan FINDINGS: SKULL BASE AND NECK: No areas of suspicious hypermetabolic uptake. CHEST, MEDIASTINUM, AND HILAR REGION: Corresponding to CT there is [id number] underlying emphys ematous change most prominent in the upper lobes. There is redemonstration of lobulated posterior inferior right upper lobe mass or neoplasm measuring approximately 4.8 x 4.6 cm axial image 48 with abnormal hypermetabolic uptake, max SUV is 9.96 axial image 84. The craniocaudal dimension is approximately 5 cm. There is stable 1.7 x 1.2 cm right lower lobe nodule image 122 which is ametabolic. There is persiste nt dependent atelectasis and/or consolidation posterior right lower lobe with more linear atelectasis and/or consolidation in the left lung base. Mild hypermetabolic uptake still favor postinflammatory in the posterior right lung base is noted. The max SUV is 4 at this level. There is mildly hypermetabolic borderline 1 cm right hilar lymph node axial image 105, max SUV is 2.7 1. There is 1.8 x 0.9 cm prominent subcarinal lymph node axial image 102 with max SUV of 2.73. There is similar prominent subcarinal lymph nodes axial images 93 through 97 also noted. These are ametabol ic. No hypermetabolic uptake in the left lung is seen. ABDOMEN AND PELVIS: No areas of suspicious hypermetabolic uptake. OSSEOUS STRUCTURES: No areas of suspicious hypermetabolic uptake. OTHER CT: Moderate calcified plaque bilateral carotid bulb level. Moderate calcified plaque of the aorta extends into branch vessels. More prominent plaque seen in abd ominal aorta and iliac branch vessels. Uterus is surgically absent or markedly atrophic. Diverticula in the sigmoid colon are thought presen t. There is simple appearing 4.0 cm cyst exophytically anteriorly upper pole of the left kidney. There is marked levoconvex scoliosis in the mid lumbar spine. There is multilevel severe facet arthro [place] with posterior decompression noted in the lower lumbar spine. Multilevel spurring in the spine. Multilevel disc space narrowing in the upper to mid lumbar spine. IMPRESSION: Confirmation biopsy-proven neoplasm as detailed above. Possible right hilar and subcarina l adenopathy as noted above. No distal metastatic disease is seen.
== END | disposition home or self-care (01) ==
LOC: RADPETMAIN 11:10
PROVIDERS: ATTEND Internal Medicine Critical Care Medicine
DX: R91.8 Other nonspecific abnormal finding of lung field (principal)
CPT/HCPCS: 78815; A9552